=== PATIENT | female | born 1945 | race Caucasian/White ===

== ENCOUNTER 2016-03-31 08:37 | Inpatient (IN) | payer OTHER ==
--- NOTE | 2016-03-31 08:46 | PROVIDER DOCUMENTATION ---
HPI-Respiratory General - General Source: patient - History of Present Illness-Resp Quality of Pain: reports: none Onset/Duration: reports: 1 hour ago Timing: reports: still present <Wenceslao Hodge - Last Filed: 03/31/16 12:11> - General Source: patient - History of Present Illness-Resp Quality of Pain: reports: tightness Severity in ED: reports: severe Onset/Duration: reports: this morning Timing: reports: still present Cough Quality/Degree: reports: no cough Associated Symptoms: reports: hurts to breathe, short of breath. denies: fever/ chills, sore throat Similar Symptoms Previously?: Yes Recently seen or treated by another doctor?: No <Michael Mendoza - Last Filed: 03/31/16 12:15> - General Chief Complaint: Shortness of Breath Stated Complaint: SOB Time Seen by Provider: 03/31/16 08:50 Allergies/Adverse Reactions: Patient Allergies Allergy/AdvReac Type Severity Reaction Status Date / Time Sulfa (Sulfonamide Allergy Intermediate RASH Verified 03/31/16 08:44 Antibiotics) [Sulfa(Sulfonamide Antibiotics)] spironolactone Allergy hyperkalemi Verified 03/31/16 08:44 a Home Medications: Home Medication List Medication Instructions Recorded Confirmed Last Taken Type Topiramate [Topamax] 25 mg PO QHS 01/31/12 01/06/16 12/17/15 21:00 History Albuterol 2.5MG/Ipratrop 0.5MG 3 ml INH Q4-6H PRN PRN #30 neb 04/16/15 01/06/16 12/17/15 Rx [Duoneb (A & A)] Amlodipine [Norvasc] 5 mg PO DAILY #30 tablet 08/06/15 01/06/16 12/17/15 08:00 Rx Insulin Detemir [Levemir] 40 unit SUBQ BID #1 insuln.pen 08/06/15 01/06/1612/16 18:00 Rx Levothyroxine [Synthroid] 75 microgm PO DAILY #30 tablet 09/19/15 01/06/1612/16 06:00 Rx Budesonide/Formoterol Fumarate 1 puff INH DIRECTED 12/04/15 01/06/16 History [Symbicort 160-4.5 Mcg Inhaler] Guaifenesin [Mucinex] 600 mg PO BID 12/04/15 01/06/16 12/17/15 20:00 History Insulin Aspart [Novolog] 100 unit SQ Q6HR 12/04/15 01/06/16 12/17/15 History Folic Acid 1 mg PO DAILY 12/18/15 01/06/16 12/17/15 08:00 History Hydrocodone/Acetaminophen [Stephenson 1 - 2 each PO Q4H 12/18/15 01/06/16 12/17/15 History 5-325 Tablet] Gabapentin [Neurontin] 800 mg PO QHS 01/07/16 01/07/16 Unknown History Omeprazole [Prilosec] 40 mg PO DAILY 01/07/16 01/07/16 Unknown History Metformin E.r. [Glucophage Xr] 1,000 mg PO BID 01/09/16 01/09/16 Unknown History Sitagliptin Phosphate [Januvia] 100 mg PO DAILY 01/09/16 01/09/16 Unknown History Atorvastatin Calcium [Lipitor] 40 mg PO DAILY 01/17/16 01/17/16 Unknown History Duloxetine [Cymbalta] 20 mg PO QAM #30 capsule 01/28/16 Unknown Rx Furosemide [Lasix] 40 mg PO BID #0 tablet 01/28/16 Unknown Rx Metoprolol Succinate E.r. [Toprol 25 mg PO DAILY #0 tablet 01/28/16 Unknown Rx Xl] Polyethylene Glycol 3350 [Miralax] 17 gm PO BID #0 powder, packet 01/28/16 Unknown Rx Pramipexole [Mirapex] 0.75 mg PO QHS #30 tablet 01/28/16 Unknown Rx - History of Present Illness-Resp Nature of Presenting Problem: Pt with SOB of sudden onset this morning with a hx of copd/ chf. She took her morning lasix (Wenceslao Hodge) Pt was brought in by EMS with 70 y/o F complaining of SOB (Michael Mendoza) Review of Systems - Adult - REVIEW OF SYSTEMS - ADULT Constitutional: denies: chills, fever Eyes: denies: discharge, decreased vision Ears, Nose, Mouth & Throat: denies: ear pain, sinus problem, mouth/dental pain, throat pain Cardiovascular: denies: chest pain, edema, irregular heart rate Respiratory: reports: dyspnea on exertion, shortness of breath Gastrointestinal: denies: constipation, diarrhea, nausea, vomiting Genitourinary: denies: discharge, frequent UTI's, hematuria Musculoskeletal: denies: bone pain, joint swelling, muscle weakness Integumentary: denies: hair loss, mole changes, skin thickening Neurological: denies: dizziness/vertigo, loss of balance, paresthesia Psychiatric: denies: anti-depressant use, emotional problems Endocrine: denies: change in skin pigment, cold intolerance, heat intolerance Allergic/Immunologic: denies: allergic rhinitis, food allergy, hay fever <Wenceslao Hodge - Last Filed: 03/31/16 12:11> - REVIEW OF SYSTEMS - ADULT Constitutional: denies: chills, fever Eyes: reports: no symptoms reported Ears, Nose, Mouth & Throat: reports: no symptoms reported Cardiovascular: reports: chest pain. denies: edema Respiratory: reports: shortness of breath. denies: cough, wheezing Gastrointestinal: reports: no symptoms reported Genitourinary: reports: no symptoms reported Musculoskeletal: reports: no symptoms reported Integumentary: reports: no symptoms reported Neurological: reports: no symptoms reported Psychiatric: reports: no symptoms reported Endocrine: reports: no symptoms reported Hematologic/Lymphatic: reports: no symptoms reported Allergic/Immunologic: reports: no symptoms reported All Other Systems: Reviewed and Negative <Michael Mendoza - Last Filed: 03/31/16 12:15> Past History - Adult - PAST MEDICAL HISTORY-ADULT Major Childhood Illnesses: reports: denies history Cardiovascular: reports: A-Fib, CAD, HTN, heart valve problem (MVP), hyperlipidemia Respiratory: reports: COPD Gastrointestinal: reports: GERD Musculoskeletal: reports: arthritis, chronic pain, fibromyalgia Neurological: reports: other (neuropathy) Psychiatric: reports: anxiety, depression Endocrine/Immune: reports: Diabetes - PRIOR SURGERIES/PROCEDURES Surgical/Procedure History: reports: breast, other (arthroscopy ) - PRIOR HOSPITALIZATIONS Prior Hospitalizations: reports: for similar symptoms - IMMUNIZATION STATUS Childhood Immunizations: See Nurse Assessment Flu Vaccine: See Nurse Assessment - FAMILY HISTORY Family History: reviewed, not pertinent <Wenceslao Hodge - Last Filed: 03/31/16 12:11> - PAST MEDICAL HISTORY-ADULT Review of Records: reports: Old Records Reviewed, Nursing Assessment Review, Medications Reviewed <Michael Mendoza - Last Filed: 03/31/16 12:15> Physical Exam-General - PHYSICAL EXAM-ADULT Initial Vital Signs Reviewed: Yes - CONSTITUTIONAL General Appearance: appears well, alert, no apparent distress - EYES Eyes: PERRL/EOMI, pink conjunctivae - HEAD, EARS, NOSE, MOUTH & THROAT HENMT: moist mucous membranes, normal ENT inspection, TMs normal, pharynx normal - NECK Neck: non-tender, full range of motion, supple - RESPIRATORY Respiratory: chest non-tender, decreased breath sounds, increased rate. negative: normal breath sounds (shallow respirations) - CARDIOVASCULAR Cardiovascular: normal peripheral pulses, regular rate, rhythm - GASTROINTESTINAL (ABDOMEN) Abdominal Exam: normal bowel sounds, non tender, soft - MUSCULOSKELETAL Back Exam: normal inspection, no CVA tenderness, no vertebral tenderness Extremity: normal range of motion, non-tender, pedal edema (4=). negative: deformity - SKIN Integumentary: normal color, normal turgor, warm/dry - NEUROLOGIC Neurologic: grossly normal, no motor/sensory deficits - PSYCHIATRIC Psych/Mental Status: normal mood/affect, normal thought content, normal thought process, oriented x 3 <Michael Mendoza - Last Filed: 03/31/16 12:15> Progress - EKG 1 Time of EKG reading by physician:: 08:35 EKG Read and Signed by:: Wenceslao Hodge Rate: 96 O'Brien: normal WI Interval: normal ST Wave: non-specific ST changes Prior EKG Comparison: no prior EKG Comments: nssttwave changes <Wenceslao Hodge - Last Filed: 03/31/16 12:11> - EKG 1 Time of EKG reading by physician:: 08:35 EKG Read and Signed by:: Wenceslao Hodge EKG Interpretation (*Must complete 3 of following elements*): Abnormal Rate: 96 Rhythm: NSR ST Wave: non-specific ST changes Comments: T wave abnormality - XRAY 1 XRAY Study: Chest Impression: Abnormal XRAY Interpretation: Vascular cogestion - CONSULTS/PCP/HOSPITALIST Notification #1 *Consult/PCP/Hospitalist*: Dr Martins Time Discussed: 10:56 Reason/Comments: Admission Consult Disposition: Admit (accepts) <Michael Mendoza - Last Filed: 03/31/16 12:15> - PLAN OF CARE/RESULTS Progress/Plan/Lab Results: Orders Category Date Time Status Cardiac Monitoring DIRECTED Care 03/31/16 08:44 Active Rausch Cath Insertion ORDERED Care 03/31/16 08:47 Active Oxygen Therapy- ED Nursing DIRECTED Care 03/31/16 08:44 Active Saline Loc NOW Care 03/31/16 08:44 Active CHEST-PORTABLE [RAD] Stat Exams 03/31/16 08:45 Draft ABG [RESP] Routine Lab 03/31/16 09:20 Completed CBC WITH ELECTRONIC DIFF [HEME] Stat Lab 03/31/16 08:45 Completed CK PROFILE [SP CHEM] Stat Lab 03/31/16 08:45 Completed COMPREHENSIVE METABOLIC PANEL [CHEM] Stat Lab 03/31/16 08:45 Com[address] D-DIMER [address] [COAG] Stat Lab 03/31/16 08:45 Completed MAGNESIUM [CHEM] Stat Lab 03/31/16 08:45 Completed PRO B-NATRIURETIC PEPTIDE Stat Lab 03/31/16 08:45 Com[address]IME WITH INR PL [COAG] Stat Lab 03/31/16 08:[address] [COAG] Stat Lab 03/31/16 08:45 Completed TROPONIN T Stat Lab 03/31/16 08:45 Completed Furosemide [Lasix] Med 03/31/16 08:47 Discontinued 60 mg IV NOW ONE Metolazone [Zaroxolyn] Med 03/31/16 09:37 Discontinued 10 mg PO NOW ONE EKG [EKG] Stat Ther 03/31/16 08:44 Draft Vital Signs Temp Pulse Resp BP Pulse Ox 03/31/16 09:22 95 H 29 H 171/54 95 03/31/16 08:39 99.5 F 96 H 31 H 146/108 98 Sulfa (Sulfonamide Antibiotics) [Sulfa(Sulfonamide Antibiotics)] Allergy ( Intermediate, Verified 03/31/16 08:44) RASH spironolactone Allergy (Verified 03/31/16 08:44) hyperkalemia Topiramate [Topamax] 25 mg PO QHS 01/31/12 Albuterol 2.5MG/Ipratrop 0.5MG [Duoneb (A & A)] 3 ml INH Q4-6H PRN PRN #30 neb 04/16/15 Amlodipine [Norvasc] 5 mg PO DAILY #30 tablet 08/06/15 Insulin Detemir [Levemir] 40 unit SUBQ BID #1 insuln.pen 08/06/15 Levothyroxine [Synthroid] 75 microgm PO DAILY #30 tablet 09/19/15 Budesonide/Formoterol Fumarate [Symbicort 160-4.5 Mcg Inhaler] 1 puff INH DIRECTED 12/04/15 Guaifenesin [Mucinex] 600 mg PO BID 12/04/15 Insulin Aspart [Novolog] 100 unit SQ Q6HR 12/04/15 Folic Acid 1 mg PO DAILY 12/18/15 Hydrocodone/Acetaminophen [Stephenson 5-325 Tablet] 1 - 2 each PO Q4H 12/18/15 Gabapentin [Neurontin] 800 mg PO QHS 01/07/16 Omeprazole [Prilosec] 40 mg PO DAILY 01/07/16 Metformin E.r. [Glucophage Xr] 1,000 mg PO BID 01/09/16 Sitagliptin Phosphate [Januvia] 100 mg PO DAILY 01/09/16 Atorvastatin Calcium [Lipitor] 40 mg PO DAILY 01/17/16 Duloxetine [Cymbalta] 20 mg PO QAM #30 capsule 01/28/16 Furosemide [Lasix] 40 mg PO BID #0 tablet 01/28/16 Metoprolol Succinate E.r. [Toprol Xl] 25 mg PO DAILY #0 tablet 01/28/16 Polyethylene Glycol 3350 [Miralax] 17 gm PO BID #0 powder, packet 01/28/16 Pramipexole [Mirapex] 0.75 mg PO QHS #30 tablet 01/28/16 I&O 03/30/16 03/31/16 04/01/16 06:59 06:59 06:59 Output Total 200 Balance -200 Laboratory 03/31/16 03/31/16 03/31/16 09:20 08:45 08:45 WBC 14.18 H RBC 3.39 L Hgb 10.6 L Hct 36.0 L MCV 106.2 H MCH 31.3 H MCHC 29.4 L RDW Std Deviation 19.3 H Plt Count 132 MPV 9.7 Immature Gran % (Auto) 0.8 H Neut % (Auto) 66.4 Lymph % (Auto) 18.7 L [place] % (Auto) 12.6 H Eos % (Auto) 1.3 Baso % (Auto) 0.2 Immature Gran # (Auto) 0.11 H Neut # (Auto) 9.42 H Lymph # (Auto) 2.65 [place] # (Auto) 1.79 H Eos # (Auto) 0.18 Baso # (Auto) 0.03 PT 14.4 INR 1.09 APTT (Factor Assay) 20.1 L D-Dimer 1.29 H Specimen Type ARTERIAL Sample Site R RADIAL pH 7.33 L pCO2 81 H* pO2 84 HCO3 35.8 H Base Excess 14.0 H Oxyhemoglobin 93.6 L ABG O2 Sat (Calculated) 13.7 L ABG O2 Saturation 96.9 ABG Carboxyhemoglobin 2.70 H ABG Methemoglobin 0.7 Rodney Test YES A-a O2 Difference 171.0 Total Hemoglobin 10.3 L Lactate 0.90 Blood Gas Modality VENTIMASK FiO2 % 50.0 Sodium Potassium Chloride Carbon Dioxide Anion Gap BUN Creatinine Estimated GFR/1.73 m2 BUN/Creatinine Ratio Glucose Calculated Osmolality Calcium Magnesium Total Bilirubin AST ALT Alkaline Phosphatase Creatine Kinase Troponin T Rop-A-Mitmzmfqqwh Pept Total Protein Albumin Globulin Albumin/Globulin Ratio 03/31/16 03/31/16 03/31/16 08:45 08:45 08:45 WBC RBC Hgb Hct MCV MCH MCHC RDW Std Deviation Plt Count MPV Immature Gran % (Auto) Neut % (Auto) Lymph % (Auto) [place] % (Auto) Eos % (Auto) Baso % (Auto) Immature Gran # (Auto) Neut # (Auto) Lymph # (Auto) [place] # (Auto) Eos # (Auto) Baso # (Auto) PT INR APTT (Factor Assay) D-Dimer Specimen Type Sample Site pH pCO2 pO2 HCO3 Base Excess Oxyhemoglobin ABG O2 Sat (Calculated) ABG O2 Saturation ABG Carboxyhemoglobin ABG Methemoglobin Rodney Test A-a O2 Difference Total Hemoglobin Lactate Blood Gas Modality FiO2 % Sodium 138 Potassium 4.6 Chloride 95 L Carbon Dioxide 33 Anion Gap 10 BUN 50 H Creatinine 1.4 H Estimated GFR/1.73 m2 37 BUN/Creatinine Ratio 36 Glucose 301 H Calculated Osmolality 300 Calcium 9.2 Magnesium 2.6 Total Bilirubin 0.50 AST 13 ALT 9 L Alkaline Phosphatase 92 Creatine Kinase 21 L Troponin T < 0.010 Est-O-Dvediawrspd Pept 3646 H Total Protein 6.6 Albumin 3.7 Globulin 3.0 Albumin/Globulin Ratio 1.0 (Michael Mendoza) Departure - Departure Time of Disposition Order: 12:11 Certified Medical Emergency: Emergent <Wenceslao Hodge - Last Filed: 03/31/16 12:11> - Departure Time of Disposition Order: 09:35 Certified Medical Emergency: Emergent <Michael Mendoza - Last Filed: 03/31/16 12:15> - Departure DIAGNOSIS: CHF (congestive heart failure) Qualifiers: Congestive heart failure type: combined Congestive heart failure chronicity: chronic Qualified Code(s): I50.42 - Chronic combined systolic (congestive) and diastolic (congestive) heart failure Disposition: ADMITTED INPATIENT 09 Condition: Stable Additional Instructions: ED Follow Up Instructions: You have been treated by a care provider in the Emergency Department. These instructions are being provided to you so you can have an understanding of how to care for yourself upon discharge. Upon discharge from the Emergency Department, you are responsible for making arrangements for follow-up care by a physician of your choice. Take all prescribed medications as directed. Return to the Emergency Department immediately for any new or worsening symptoms. You may call the Physician Referral phone number at [phone] to obtain a list of Physicians who are taking new patients. Referrals: Idris Hanna MD [Primary Care Provider] - Attestation - Scribe Verification/Attestation Scribe:: Michael Mendoza Acting as Scribe for:: Wenceslao Hodge Scribe documention review:: This chart was documented by a scribe and accurately reflects the service the provider performed and the decisions made by the provider. <Michael Mendoza - Last Filed: 03/31/16 12:15> Physician Attestation
[2016-03-31] MEDS ORDERED: LASIX IV ONE (08:47)
[2016-03-31 09:10] LABS: BASO% 0.2 % (0.0-0.8); EOS# 0.18 X1000 (0.0-0.7); EOS% 1.3 % (0.0-10.0); HEMOGLOBIN 10.6 g/dL (12.0-16.0); IMM GRAN# 0.11 X1000 (0.0-0.04); IMM GRAN% 0.8 % (0.0-0.5); LYMPH# 2.65 X1000 (1.2-3.4); LYMPH% 18.7 % (20.5-51.1); MANUAL DIFF NEEDED? NO; MCH 31.3 PG (27-31); MCHC 29.4 g/dL (33-37); MCV 106.2 FL (81-99); MONO# 1.79 X1000 (0.11-0.59); MONO% 12.6 % (1.7-9.3); MPV 9.7 FL (7.4-10.4); NEUT% 66.4 % (42.2-75.2); PLT 132 X1000 (130-400); RBC 3.39 XMIL (4.2-5.4)
[2016-03-31 09:18] LABS: INR 1.09 (0.86-1.15); PROTIME 14.4 Seconds (12.1-15.5)
[2016-03-31 09:19] LABS: PTT PL 20.1 Seconds (22.6-43.9)
[2016-03-31 09:20] LABS: ALBUMIN 3.7 g/dL (3.5-5.0); CALCIUM 9.2 mg/dL (8.8-10.2); MAGNESIUM 2.6 mg/dL (1.5-2.7); POTASSIUM 4.6 mmol/L (3.5-5.1); TOTAL BILIRUBIN 0.5 mg/dL (0.20-1.00); TOTAL PROTEIN 6.6 g/dL (6.3-8.3)
[2016-03-31] MEDS ORDERED: ZAROXOLYN PO ONE (09:37)
[2016-03-31 09:39] LABS: BLOOD TYPE ARTERIAL; DRAW SITE R RADIAL; METHB 0.7 % (0.0-1.5); O2(CT) 13.7 mL/dL (15.0-23.0); PO2(98.6) 84 mmHg (60-100); SAMPLE BLOOD; SAO2 96.9 % (95.0-100.0); THB 10.3 g/dL (11.5-17.4); pH(98.6) 7.33 (7.35-7.45)
--- NOTE | 2016-03-31 10:02 | Diag Imaging Result Document ---
PROCEDURE NAME: CHEST-PORTABLE - 03/31/2016 CHEST SINGLE VIEW: INDICATION: Chest pain. COMPARISON: 01/19/2016. FINDINGS: There is cardiomegaly with pulmonary vasculature congestion and interstitial edema increased from the prior study. There are probable small bilateral pleural effusions. IMPRESSION: Pulmonary edema increased from prior study.
[2016-03-31 10:12] LABS: MODALITY VENTIMASK; PCO2(98.6) 81 mmHg (35-45)
[2016-03-31 10:13] LABS: ALLEN TEST YES
--- NOTE | 2016-03-31 10:28 | EKG Report ---
Test Performed on : 03/31/2016 08:35:46 AM Test Reason : CHEST PAIN Blood Pressure : / mmHG Vent. Rate : 096 BPM Atrial Rate : 096 BPM P-R Int : 138 ms QRS Dur : 078 ms QT Int : 334 ms P-R-T Axes : 046 001 041 degrees QTc Int : 421 ms Normal sinus rhythm. Nonspecific ST and T wave abnormality Abnormal ECG When compared with ECG of 12-JAN-2016 16:40, No significant change was found Unconfirmed Result
[2016-03-31 14:55] LABS: BE 19.6 mmoll (-3.0-3.0); BLOOD TYPE ARTERIAL; DRAW SITE R RADIAL; METHB 1.4 % (0.0-1.5); O2(CT) 12.6 mL/dL (15.0-23.0); PO2(98.6) 99 mmHg (60-100); SAMPLE BLOOD; SAO2 97.9 % (95.0-100.0); THB 9.4 g/dL (11.5-17.4); pH(98.6) 7.37 (7.35-7.45)
[2016-03-31 15:06] LABS: ALLEN TEST YES; MODALITY VENTIMASK; PCO2(98.6) 83 mmHg (35-45)
[2016-03-31] MEDS ORDERED: DUONEB (A & A) INH PRN (15:34)
[2016-03-31] MEDS: HUMALOG SUBQ SCH ×2 (16:05→20:10)
[2016-03-31] MEDS: DUONEB (A & A) INH SCH ×3 (16:24→23:00)
--- NOTE | 2016-03-31 16:33 | CONSULTATION ---
DATE OF CONSULTATION: 03/31/2016 INDICATION: Congestive heart failure. HISTORY OF PRESENT ILLNESS: Ms. Law is a 70-year-old white female who is morbidly obese. She has a history of diastolic heart failure with multiple hospitalizations. Notably, she has had a hospitalization in December and January at [facility]. Later hospitalization at [facility] in January and a subsequent hospitalization in February at [facility]. These all seemed to be secondary to diastolic heart failure. She comes in today with a myriad of complaints over the last several days. She has had generalized malaise, weakness, lightheadedness, shortness of breath, chest discomfort and subjective fevers. In addition she has had episodic nausea and diarrhea. She cannot think of anything that specifically exacerbated these symptoms. She reports compliance with her medications although she is not fluent on what her medications are. In addition she reports compliance with her CPAP as well as her home oxygen therapy. She was in a rehab facility up until March 24 and specifically reports that was really the last day that she felt well. She is essentially non mobile at home using a walker for only limited ambulation around the house and is not able to independently perform her activities of daily living. She currently lives with her sister. Essentially most of her day is spent either in bed or sitting in a chair. There has been no orthopnea and no PND and again she does report compliance with her CPAP and home oxygen therapy. PAST MEDICAL HISTORY: 1. Significant for diastolic heart failure. 2. Diabetes mellitus. 3. Morbid obesity. 4. Hyperlipidemia. 5. Hypothyroidism. 6. Obstructive sleep apnea. SOCIAL HISTORY: No current alcohol, tobacco or illicit drugs. She currently lives with her sister. FAMILY HISTORY: Significant for diabetes and hypertension. REVIEW OF SYSTEMS: A 10 system review of systems is negative except for those mentioned in HPI. PHYSICAL EXAMINATION: She is afebrile. Her initial blood pressure on presenting to the ER at [place] was 146/108. Heart rate most recently of 60. She weighs 267 pounds. She is 5 feet 3 inches.General: No acute distress. Morbidly obese, white female. HEENT: Oropharynx is moist. Poor dentition. Eye examination shows pink conjunctivae, white sclerae. Neck: Examination shows no obvious thyromegaly or thyroid tenderness. Cardiovascular: She is in a regular rate and rhythm. She has no obvious murmurs. She has very distant heart sounds. She has 2+ bilateral lower extremity edema that appears chronic. She has warm and well perfused lower extremities. Chest: Notable for somewhat diminished breath sounds but they are very distant. There is no increased work of breathing. She is speaking in full sentences. She currently has a face mask in place. Abdomen: Soft, nontender. No obvious organomegaly but significantly limited examination. Musculoskeletal Examination: Normal and symmetric muscle tone. No long bone tenderness to palpation. Neurological: Moving all extremities well. Cranial nerves 2-12 are intact without any sensation deficits. Psychiatric: Alert and oriented, pleasant. She has normal mood and affect. PERTINENT DATA: Her EKG at 8:35 this morning shows sinus rhythm. She had a rate of 96 beats per minute. She had a chest x-ray suggesting an increase in pulmonary edema from previous studies. Her white count is 14.1, her hematocrit is 36. Her platelet count is 132,000. Her D-dimer is 1.29. Her INR is 1.09. Her ABG shows a pH of 7.37, pCO2 of 83, PO2 is 99. That was on an FiO2 of 40%. Her sodium is 138, potassium 4.6, BUN 50, creatinine 1.4. Her proBNP is 3646. ASSESSMENT: Diastolic heart failure. PLAN: Pulmonary is being involved. We have checked an echocardiogram. She is on Lasix 60 mg IV b.i.d. which we will continue. 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 We will recheck the echo to reconsider evaluation of the aortic valve. Further recommendations to follow.
[2016-03-31] MEDS ORDERED: ZOFRAN IV PRN (16:40)
--- NOTE | 2016-03-31 18:47 | HISTORY AND PHYSICAL ---
PRIMARY CARE PHYSICIAN: Dr. Idris Hanna. ARTISTIC ASSOCIATE: Dr. Marinelli. CHIEF COMPLAINT: Shortness of breath, chest pain. HISTORY OF PRESENT ILLNESS: This is a morbidly obese, 70-year-old female who is well known to our service. She has a history of hypercapnic respiratory failure, chronic COPD with home O2 at 4 L, narcolepsy, obstructive sleep apnea, mitral valve prolapse, diabetes type 2 now insulin-dependent, as well as a history of Crohn's disease with chronic diarrhea. At the time of interview the patient is on oxygen 40% via Ventimask. She will answer yes and no only to questions; therefore, history is taken from the chart and the family members that are sitting at the bedside. Evidently, the patient had been in her normal state of health when she complained of a sudden onset of chest pain with increasing shortness of breath at rest about an hour prior to coming to the emergency room. The family member stated that the shortness of breath progressed; therefore, she called 911. On arrival, she did describe the pain as a tightness that increased with cough and deep breathing. It did decrease when she was sitting still between coughs. She denied any syncope, dizziness, nausea, or vomiting with this pain. She did have a nonproductive cough. She was afebrile with diminished breath sounds throughout. She was placed on it looks like a 50% face mask, given 60 of Lasix IV as well as 2 mg of Zaroxolyn p.o., and Rausch was placed due to an elevated proBNP of 3,646. Blood gases revealed a pCO2 of 83, a PO2 of 99, with a pH of 7.37. The family member did state that the patient took her morning medications which included Lasix, although she was unaware of any urine output. At the time of the patient 's assessment by myself, she had diuresed over 1500 mL. Respirations were 26-30 while asleep on 40% Ventimask. She was maintaining a saturation of 92 to 93%. PAST MEDICAL HISTORY: 1.Chronic hypercapnic respiratory failure 2.COPD with home O2 at 4 L 3.Obstructive sleep apnea 4.Narcolepsy 5.Diabetes mellitus type 2, now insulin-dependent 6.Chronic pain syndrome 7.Aortic valve vegetation 8.Morbid obesity 9.Chronic diastolic heart failure 10.Hypertension 11.Mitral valve prolapse 12.Crohn's disease PAST SURGICAL HISTORY: Breast reduction, debridement of soft tissue secondary to MRSA of the right thigh in November of 2014, and arthroscopic knee surgery. ALLERGIES: Sulfa drugs which cause a rash. HOME MEDICATIONS: A list will be obtained. REVIEW OF SYSTEMS: Is unable to obtain due to the patient's lethargy. Pertinent positives stated in the HPI are from the chart and the patient's family members. PHYSICAL EXAMINATION: GENERAL: This is a 70-year-old morbidly obese female, who is lying in the bed, lethargic at present. CARDIOVASCULAR: Regular rate and rhythm. S1 and S2 are appreciated. PULMONARY: Breath sounds are diminished throughout and the patient is in mild distress. Chest does rise and fall symmetrically with respiration. GASTROINTESTINAL: Abdomen is soft, nondistended. Bowel sounds in all 4 quadrants. MUSCULOSKELETAL: Good range of motion to joints. EXTREMITIES: No clubbing or cyanosis. She does have some 3 to 4+ pedal edema bilateral. Pulses palpable x4. SKIN: Warm and dry with no rashes or lesions noted. NEUROLOGIC: She is lethargic. She will wake to her name being called. She will answer sentences yes or no in 1 word and then dozes back off to sleep. DIAGNOSTICS: Chest x-ray reveals pulmonary edema with probable small bilateral pleural effusions. LABS: WBC is 14.1, with a hemoglobin 10.6, hematocrit 36, platelets of 132, 000. D-dimer is 1.29 with an INR of 1.09. Sodium is 138, potassium 4.6, BUN 50, creatinine 1.4, with a glucose of 301. ProBNP is 3,646. Troponin of 0.010. ASSESSMENT: 1. Acute on chronic hypercapnic respiratory failure. 2. Chronic obstructive pulmonary disease with home O2 at 4 L nasal cannula. 3. Acute exacerbation of diastolic heart failure with last EF 12/2015 of 61%. 4. Diabetes mellitus type 2, now insulin dependent. 5. Hypothyroidism 6. Obstructive sleep apnea. 7. Crohn's disease with chronic diarrhea. 8. Abnormal aortic valve with oscillating mass and possible moderate to perhaps severe degree of aortic regurgitation per echocardiogram 12/2015. 9. Acute kidney injury PLAN: She will be admitted to the hospital. She will be transferred to [facility] and placed in CICU for close monitoring with telemetry. Blood gases will be repeated. The patient will be placed on BiPAP. We will consult cardiology as well as Dr. Marinelli, her marriage counselor minister. We will identify her home medications and continue as appropriate. She was given 60 of Lasix IV in the emergency room. We will start 60 mg IV b.i.d. at 9 o'clock tonight. We will give DuoNeb q.4 hours and q.2 hours p.r.n. Pattern blood glucose with sliding scale insulin. We will trend daily blood gases as well as repeat CBC, CMP, magnesium, and proBNP in the morning. We will hold renal toxic medications at present. Further treatments pending hospital course. Dictated by LYNN Hummel for Courtney Leyva MD The patient was seen and examined by me. I agree with the assessment and plan as dictated. ALETA
[2016-03-31] MEDS: TYLENOL PO PRN (19:06)
[2016-03-31] MEDS: LASIX IV SCH (20:10)
[2016-03-31 21:48] LABS: ALLEN TEST YES; BE 20.6 mmoll (-3.0-3.0); BLOOD TYPE ARTERIAL; DRAW SITE R RADIAL; METHB 1.4 % (0.0-1.5); PO2(98.6) 114 mmHg (60-100); SAMPLE BLOOD; SAO2 98.4 % (95.0-100.0); THB 8.8 g/dL (11.5-17.4); pH(98.6) 7.44 (7.35-7.45)
[2016-03-31 21:49] LABS: MODALITY BI PAP
[2016-03-31 21:50] LABS: PCO2(98.6) 70 mmHg (35-45)
[2016-03-31] MEDS: LIPITOR PO SCH (23:30)
[2016-03-31] MEDS: MIRAPEX PO SCH (23:30)
[2016-03-31] MEDS: TOPAMAX PO SCH (23:30)
[2016-03-31] MEDS: MIRALAX PO SCH (23:30)
[2016-03-31] MEDS: NORCO-5 PO PRN (23:31)
[2016-04-01] MEDS ORDERED: AYR NASAL SPRAY NAS PRN (01:26)
[2016-04-01] MEDS: NORCO-5 PO PRN ×4 (03:24→20:52)
[2016-04-01] MEDS: DUONEB (A & A) INH SCH ×6 (03:43→23:44)
[2016-04-01] MEDS: ZOFRAN IV PRN ×2 (04:21→12:57)
[2016-04-01 04:53] LABS: ALLEN TEST YES; BE 16.9 mmoll (-3.0-3.0); BLOOD TYPE ARTERIAL; DRAW SITE R RADIAL; METHB 1.5 % (0.0-1.5); O2(CT) 17.4 mL/dL (15.0-23.0); PO2(98.6) 69 mmHg (60-100); SAMPLE BLOOD; SAO2 94.2 % (95.0-100.0); THB 13.8 g/dL (11.5-17.4)
[2016-04-01 04:57] LABS: MODALITY BI PAP; PCO2(98.6) 74 mmHg (35-45)
[2016-04-01 05:36] LABS: HEMATOCRIT 31.8 % (37.0-47.0); HEMOGLOBIN 9.2 g/dL (12.0-16.0); MCH 31.4 PG (27-31); MCHC 28.9 g/dL (33-37); MCV 108.5 FL (81-99); MPV 9.9 FL (7.4-10.4); RBC 2.93 XMIL (4.2-5.4)
[2016-04-01] MEDS: PROTONIX IV SCH (06:45)
[2016-04-01 07:03] LABS: ALBUMIN 3.4 g/dL (3.5-5.0); CALCIUM 9.1 mg/dL (8.8-10.2); POTASSIUM 3.8 mmol/L (3.5-5.1); TOTAL BILIRUBIN 0.64 mg/dL (0.20-1.00); TOTAL PROTEIN 6.4 g/dL (6.3-8.3)
--- NOTE | 2016-04-01 07:26 | Diag Imaging Result Document ---
PROCEDURE NAME: CHEST-PORTABLE - 04/01/2016 SINGLE FRONTAL RADIOGRAPH OF THE CHEST: COMPARISON: 03/31/2016. FINDINGS: Inspiration is suboptimal. Pulmonary venous congestion and at least mild interstitial edema is stable. No new consolidation is identified. Cardiac silhouette is stable. IMPRESSION: Stable chest.
[2016-04-01] MEDS: HUMALOG SUBQ SCH ×4 (07:48→20:46)
[2016-04-01] MEDS: LASIX IV SCH ×2 (08:14→20:47)
[2016-04-01] MEDS: CYMBALTA PO SCH (08:14)
[2016-04-01] MEDS: FOLIC ACID PO SCH (08:14)
[2016-04-01] MEDS: SYNTHROID PO SCH (08:15)
[2016-04-01] MEDS: MIRALAX PO SCH ×2 (08:15→20:47)
[2016-04-01] MEDS ORDERED: LOVENOX SUBQ SCH (09:00)
[2016-04-01] MEDS: ZOSYN 3.375 GM/NS 50 ML IV SCH ×2 (11:37→16:19)
[2016-04-01] MEDS: CALMOSEPTINE OINTMENT TOP PRN (12:56)
--- NOTE | 2016-04-01 13:38 | CONSULTATION ---
DATE OF CONSULTATION: 04/01/2016 REFERRING PHYSICIAN: Dr. Leyva. CHIEF COMPLAINT: Shortness of breath and chest pain. HISTORY OF PRESENT ILLNESS: This is a morbidly obese, 70-year-old female with a past medical history of hypercapnic respiratory failure, COPD, ESTELLA, mitral valve prolapse, diabetes, Crohn disease, that presented to the hospital with complaints of shortness of breath and chest pain. The patient had a sudden increase in shortness of breath and chest pain about an hour prior to coming to the hospital. She described the pain as tightness and pain with cough and deep breathing. Her cough was noted to be nonproductive. Her CO2 was elevated at 83 upon arrival and she was placed on BiPAP and admitted to the floor. She denies any syncope, dizziness, nausea, or vomiting. She does have chronic diarrhea secondary to the Crohn disease. REVIEW OF SYSTEMS: A 10-point review of systems was conducted. Pertinent as noted in the HPI, otherwise noncontributory. PAST MEDICAL HISTORY: As mentioned in HPI, otherwise noncontributory. PAST SURGICAL HISTORY: Breast reduction, debridement of soft tissue secondary to MRSA of the right thigh, and arthroscopic knee surgery. ALLERGIES: Sulfa. ACTIVE MEDICATIONS: Tylenol, Darrow, DuoNeb, Lipitor, Cymbalta, Lovenox, folic acid, Lasix, Humalog, Synthroid, Zofran, Protonix, MiraLAX, Mirapex, and Topamax. PHYSICAL EXAMINATION: Vital Signs: Temperature 96.9, heart rate 85, respiratory rate 22, blood pressure 133/42, oxygen saturation 100%. General: This is a morbidly obese female, lying in bed, on BiPAP. No acute distress noted. Cardiovascular: Regular rate and rhythm. S1, S2 present. Chest: Reduced entry. GI: Soft, nondistended. Bowel sounds present. Extremities: Three to 4+ pedal edema bilaterally. Distal pulses are palpable. Neurologic: She does seem to be lethargic but does arouse to verbal stimuli. LABS/INVESTIGATIONS: WBC 6.92, RBC is 2.93, hemoglobin 9.2, hematocrit 31.8, platelet count 99,000. Sodium 141, potassium 3.8, chloride 90, anion gap 11, BUN 45, creatinine 1.1, glucose 165. ProBNP 4,769. Blood gas reveals a pH of 7.4, pCO2 of 74, PO2 of 69, HC03 of 37.9. Chest x- ray shows stable chest. ASSESSMENT AND PLAN: This is a 70-year-old, morbidly obese female with a past medical history mentioned in the HPI, that presented to the hospital with complaints of shortness of breath and chest pain. She does have acute on chronic hypercapnic respiratory failure secondary to her chronic obstructive pulmonary disease exacerbation and acute exacerbation of her diastolic heart failure. Continue to repeat labs. IV Lasix b.i.d., inhaled bronchodilators, pattern fingersticks with sliding scale insulin, DVT and GI prophylaxis. Further recommendations pending diagnostic studies. Thank for the courtesy of consult. Dictated by LYNN Diaz for Kathrin Marinelli MD
--- NOTE | 2016-04-01 16:00 | PROGRESS NOTE ---
DATE: 04/01/2016 SUBJECTIVE: Ms. Peck thinks that she feels better today. Her breathing is somewhat improved. She is on BiPAP presently, though. PHYSICAL EXAMINATION: Vital signs: She is afebrile. Heart rate of 83, blood pressure 119/48. Her I's and O's are - 3250 mL thus far. General: No acute distress. Cardiovascular: Regular rate and rhythm. She has no obvious murmurs. Chest: Sounds relatively clear, but she has poor inspiratory effort. No increased work of breathing. Abdomen: Soft, nontender, nondistended. No obvious organomegaly. Skin: Warm and dry throughout. PERTINENT DATA: White count 6.9. Hematocrit is 31.8. Platelet count is 99,000. Sodium is 141, potassium 3.8, BUN 45, creatinine 1.1. ASSESSMENT: 1. Diastolic heart failure. 2. Chronic obstructive pulmonary disease exacerbation. PLAN: We will continue with diuretics. They seem to be effective at this point. She is being followed by pulmonology as well.
--- NOTE | 2016-04-01 16:30 | ECHO REPORT ---
ORDER DATE: 03/31/2016 INDICATION FOR THE STUDY: CHF. FINDINGS: 1. This is an extremely difficult study. The patient is morbidly obese and on BiPAP making this a very poor quality study. 2. The right atrium is mildly enlarged at 4.3 cm. 3. There is mild tricuspid regurgitation. RV systolic pressure of 30. 4. Likely enlarged right ventricle. The RV systolic function does appear to be intact though. 5. Mild pulmonic insufficiency. 6. Mild left atrial enlargement at 4.3 cm. 7. No mitral prolapse. Mild mitral regurgitation. 8. LV appears to be somewhat enlarged with an end-diastolic dimension of 5.8. There is mild left ventricular hypertrophy with a posterior and interventricular septal wall thickness 1.2 cm each. Normal LV systolic function. The estimated EF is greater than 55%. Segmental wall motion analysis cannot be performed as the patient has a very poor endocardial border visualization but overall I do not see any significant abnormalities. 9. Aortic valve does appear to open well. It is somewhat calcified. In addition there is a calcified oscillating mass adherent to what appears to be the left coronary cusp. This was noted on the last study she had in December 2015. This may represent a healed vegetation. There is at least mild aortic insufficiency. Due to the technical difficulties of this study it is extremely difficult to characterize. I do not see any significant aortic stenosis. 10. Aorta appears normal in visualized segments. 11. No pericardial effusion seen.
[2016-04-01] MEDS ORDERED: NORCO-5 PO PRN (19:13)
--- NOTE | 2016-04-01 19:35 | PROGRESS NOTE ---
DATE: 04/01/2016 SUBJECTIVE: The patient is currently on BiPAP at night. She states that she feels a little bit better. No acute events noted overnight. She does complain of numbness in her left arm. OBJECTIVE: Vital Signs: Temperature 97 degrees, blood pressure 103/44, heart rate 82, respirations 20, O2 saturation is 98% on BiPAP. General: Is a morbidly obese female, lying in bed, in no acute distress. Head: Normocephalic, atraumatic. Heart: S1, S2. Normal. Regular rate and rhythm. Lungs: Clear to auscultation. No wheezing, no rales, no rhonchi. Abdomen: Positive bowel sounds. Soft, obese, nontender. Extremities: 3+ edema with erythema involving both lower extremities. LABS: White blood cell count 6.9, hemoglobin 9.2, hematocrit 31, platelets 99, 000. Sodium 141, potassium 3.8, chloride 90, CO2 40, BUN 45, creatinine 1.1, glucose 165, calcium 9.1, magnesium 2.2, proBNP 4769. ASSESSMENT AND PLAN: 1. Acute hypercapnic respiratory failure. Continue with BiPAP support as well as bronchodilator therapy. 2. Acute on chronic diastolic congestive heart failure exacerbation. Continue on IV Lasix infusion. Cardiology is following. We will monitor the patient's urine output and daily weights closely. 3. Thrombocytopenia. Will discontinue the Lovenox and monitor the patient's platelet count closely. 4. Morbid obesity. Aware. 5. Obstructive sleep apnea. The patient is on BiPAP. 6. Anxiety disorder. Aware. 7. Hypothyroidism. Continue on Synthroid. 8. Dyslipidemia. Continue on Lipitor. 9. Situational depression. Continue on Cymbalta. 10. Bilateral lower extremity cellulitis. We will start the patient on Zosyn. 11. Restless legs syndrome. Continue on Mirapex. 12. Diabetes Mellitus type 2. Continue on sliding scale insulin. [facility]
[2016-04-01] MEDS: TOPAMAX PO SCH (20:47)
[2016-04-01] MEDS: LIPITOR PO SCH (20:47)
[2016-04-01] MEDS: MIRAPEX PO SCH (20:48)
[2016-04-01] MEDS: NEURONTIN PO SCH (20:52)
[2016-04-01] MEDS ORDERED: CARDIZEM IV ONE (22:47)
[2016-04-01] MEDS ORDERED: CARDIZEM 100 MG/NS 100 ML IV SCH ×2 (23:00)
[2016-04-02] MEDS: LASIX IV SCH ×3 (00:43→20:32)
[2016-04-02] MEDS: NORCO-5 PO PRN ×6 (00:43→23:01)
[2016-04-02] MEDS: ZOSYN 3.375 GM/NS 50 ML IV SCH ×5 (00:44→23:08)
[2016-04-02] MEDS: DUONEB (A & A) INH SCH ×6 (03:16→23:39)
[2016-04-02 05:45] LABS: ALLEN TEST YES; BE 18.8 mmoll (-3.0-3.0); BLOOD TYPE ARTERIAL; DRAW SITE R RADIAL; METHB 1.8 % (0.0-1.5); PO2(98.6) 68 mmHg (60-100); SAMPLE BLOOD; SAO2 97.5 % (95.0-100.0); THB 8.5 g/dL (11.5-17.4); pH(98.6) 7.36 (7.35-7.45)
[2016-04-02 05:45] LABS: ALBUMIN 3.2 g/dL (3.5-5.0); CALCIUM 8.8 mg/dL (8.8-10.2); POTASSIUM 3.4 mmol/L (3.5-5.1)
[2016-04-02 05:46] LABS: MODALITY BI PAP; PCO2(98.6) 83 mmHg (35-45)
[2016-04-02] MEDS: SODIUM CHLORIDE 0.9% INJ SCH (05:52)
[2016-04-02] MEDS: PROTONIX IV SCH ×2 (05:52→06:01)
[2016-04-02] MEDS: HUMALOG SUBQ SCH ×3 (06:00→16:41)
[2016-04-02 06:24] LABS: HEMATOCRIT 29.5 % (37.0-47.0); HEMOGLOBIN 8.8 g/dL (12.0-16.0); MCH 31.9 PG (27-31); MCHC 29.8 g/dL (33-37); MCV 106.9 FL (81-99); MPV 9.1 FL (7.4-10.4); RBC 2.76 XMIL (4.2-5.4)
[2016-04-02] MEDS: POTASSIUM CHLORIDE 20 MEQ/SWI 100 ML IV SCH ×2 (08:21→11:09)
[2016-04-02] MEDS: MIRALAX PO SCH ×2 (08:22→20:34)
[2016-04-02] MEDS: SYNTHROID PO SCH (08:23)
[2016-04-02] MEDS: CYMBALTA PO SCH (08:23)
[2016-04-02] MEDS: DALIRESP PO SCH (08:23)
[2016-04-02] MEDS: FOLIC ACID PO SCH (08:23)
--- NOTE | 2016-04-02 08:59 | Diag Imaging Result Document ---
PROCEDURE NAME: CERVICAL SPINE W/O CONTRAST - 04/02/2016 CT C-SPINE WITHOUT CONTRAST: COMPARISON: 10/20/2015. FINDINGS: There is degenerative disk disease at multiple cervical levels, most significant at and below C4-5. There is loss of disk space height and marginal osteophyte formation at these levels. At C5-6, there is a broad-based disk osteophyte complex and uncovertebral osteophytes that are causing moderate central stenosis and mild bilateral bony foraminal stenosis. At C6-7, there is a broad-based disk osteophyte complex causing moderate central stenosis. However, these levels as well as the other visualized levels appear to be stable as compared to the previous study. There is no evidence of fracture, traumatic subluxation, or intrinsic osseous lesion, otherwise. Surrounding soft tissues are essentially unremarkable. IMPRESSION: Multilevel degenerative disk disease as described that appeared to be most significant at C5-6 and C6-7. However, the cervical spine appears to be stable. If not contraindicated, consider MRI of the cervical spine, which should provide better tissue contrast.
--- NOTE | 2016-04-02 09:26 | Diag Imaging Result Document ---
PROCEDURE NAME: CHEST-PORTABLE - 04/02/2016 AP PORTABLE CHEST AT 0835 HOURS: FINDINGS: The inspiration is suboptimal. There is bibasilar atelectasis. This is probably slightly improved on the right side since 04/01/2016. Otherwise, there has been no significant change. IMPRESSION: Slightly improved atelectasis.
[2016-04-02 10:55] LABS: BE 18.5 mmoll (-3.0-3.0); BLOOD TYPE ARTERIAL; METHB 1.2 % (0.0-1.5); O2(CT) 12.4 mL/dL (15.0-23.0); PO2(98.6) 66 mmHg (60-100); SAMPLE BLOOD; SAO2 95.1 % (95.0-100.0); THB 9.6 g/dL (11.5-17.4); pH(98.6) 7.37 (7.35-7.45)
[2016-04-02 10:58] LABS: ALLEN TEST YES; DRAW SITE R RADIAL; MODALITY BI PAP; PCO2(98.6) 81 mmHg (35-45)
--- NOTE | 2016-04-02 13:23 | PROGRESS NOTE ---
DATE: 04/02/2016 SUBJECTIVE: Ms. Peck reports she feels better. She is tolerating her oral intake. PHYSICAL EXAMINATION: Vital Signs: Afebrile. Heart rate 87, blood pressure 135/35. Her input and output continue to be negative. She is negative around 5 liters over the course of the hospitalization. General: No acute distress. Cardiovascular: She is in a regular rate and rhythm. She has no obvious murmurs. Pulmonary: Her chest exam is clear bilaterally, but very distant breath sounds were heard. She has poor inspiratory effort. Abdomen: Soft, nontender, nondistended. No obvious organomegaly. PERTINENT DATA: Her white count is 5.7, her hematocrit is 29.5, platelet count is 71,000. Her sodium is 138, potassium 3.4, BUN 35, creatinine 1. ASSESSMENT: 1. Diastolic heart failure. 2. Chronic obstructive pulmonary disease exacerbation. PLAN: The patient certainly has a component of obstructive sleep apnea/obesity hypoventilation/COPD. She is diuresing well. I would continue her on her diuresis at the current rate, as it seems to be doing well. We will check a proBNP in the morning.
[2016-04-02] MEDS: ZOFRAN IV PRN ×3 (13:39→23:01)
[2016-04-02] MEDS ORDERED: LACTULOSE PO ONE (14:01)
[2016-04-02] MEDS ORDERED: LACTULOSE PO PRN (14:15)
--- NOTE | 2016-04-02 18:51 | PROGRESS NOTE ---
DATE: 04/02/2016 SUBJECTIVE: The patient is resting comfortably with BiPAP on. She states that she started to feel a lot better and stronger. She also appears to be more awake and alert. OBJECTIVE: Vital Signs: Temperature 97.9 degrees, blood pressure 110/37, heart rate 90, respirations 21, O2 saturations 99% on BiPAP. General: This is a morbidly obese female, lying comfortably in bed, in no acute distress. Head: Normocephalic atraumatic. Heart: S1, S2. Normal. Regular rate and rhythm. Lungs: Clear to auscultation bilaterally. No wheezes, no rales. No rhonchi. Abdomen: Positive bowel sounds. Soft, nontender, nondistended. Extremities: 3+ edema with mild erythema in the lower extremities. Neurologic: The patient is alert and oriented x3. No focal neurologic deficits noted. LABS: White blood cell count 5.6, hemoglobin 8.8, hematocrit 29, platelets 71,000. Sodium 138, potassium 3.4, chloride 91, CO2 40, BUN 35, creatinine 1. Glucose 137. Chest x-ray shows slight improvement in the atelectasis seen on the initial chest x-ray. ASSESSMENT AND PLAN: 1. Acute hypercapnic respiratory failure. Continue with BiPAP support as well as bronchodilator therapy. Pulmonary is following. 2. Acute on chronic diastolic congestive heart failure exacerbation. Continue on IV Lasix. Cardiology is following. 3. Thrombocytopenia. Will continue to monitor this closely. If it continues to worsen will consult Hematology. 4. Morbid obesity. Aware. 5. Obstructive sleep apnea. The patient is currently on BiPAP. 6. Hypothyroidism. Continue on Synthroid. 7. Situational depression. Continue on Cymbalta. 8. Bilateral lower extremity cellulitis. Continue on Zosyn. 9. Diabetes mellitus type 2. Continue on sliding scale insulin.
[2016-04-02] MEDS: TOPAMAX PO SCH (20:32)
[2016-04-02] MEDS: MIRAPEX PO SCH (20:34)
[2016-04-02] MEDS: LIPITOR PO SCH (20:34)
[2016-04-02] MEDS: MYCOSTATIN POWDER TOP SCH (20:35)
[2016-04-02] MEDS: NEURONTIN PO SCH (20:35)
[2016-04-03] MEDS: DUONEB (A & A) INH SCH ×6 (02:57→22:54)
[2016-04-03 03:24] LABS: ALLEN TEST YES; BE 23.3 mmoll (-3.0-3.0); BLOOD TYPE ARTERIAL; DRAW SITE R RADIAL; METHB 1.6 % (0.0-1.5); O2(CT) 10.2 mL/dL (15.0-23.0); PO2(98.6) 50 mmHg (60-100); SAMPLE BLOOD; SRATE 4 BPM; THB 8.7 g/dL (11.5-17.4); pH(98.6) 7.39 (7.35-7.45)
[2016-04-03 03:26] LABS: MODALITY BI PAP
[2016-04-03 03:28] LABS: PCO2(98.6) 85 mmHg (35-45); SAO2 86.5 % (95.0-100.0)
[2016-04-03] MEDS: HUMALOG SUBQ SCH ×5 (04:45→21:42)
[2016-04-03 05:35] LABS: ALBUMIN 3.5 g/dL (3.5-5.0); CALCIUM 9.1 mg/dL (8.8-10.2); POTASSIUM 3.7 mmol/L (3.5-5.1)
[2016-04-03] MEDS: PROTONIX IV SCH (05:43)
[2016-04-03] MEDS: NORCO-5 PO PRN ×2 (05:44→17:09)
[2016-04-03] MEDS: ZOSYN 3.375 GM/NS 50 ML IV SCH ×4 (05:45→23:42)
[2016-04-03] MEDS: ZOFRAN IV PRN ×2 (05:51→11:44)
[2016-04-03 05:52] LABS: HEMATOCRIT 30.7 % (37.0-47.0); HEMOGLOBIN 9.1 g/dL (12.0-16.0); MCH 31.2 PG (27-31); MCHC 29.6 g/dL (33-37); MCV 105.1 FL (81-99); MPV 9.3 FL (7.4-10.4); RBC 2.92 XMIL (4.2-5.4)
--- NOTE | 2016-04-03 07:43 | Diag Imaging Result Document ---
PROCEDURE NAME: CHEST-PORTABLE - 04/03/2016 SINGLE FRONTAL RADIOGRAPH OF THE CHEST: COMPARISON: 03/13/2016. FINDINGS: Inspiration is suboptimal but stable. Bibasilar atelectasis is unchanged. There is probably a component of mild pulmonary venous congestion as well. No new consolidation is identified. Cardiac silhouette is stable. IMPRESSION: Essentially stable chest.
[2016-04-03] MEDS: MYCOSTATIN POWDER TOP SCH ×2 (09:00→21:40)
[2016-04-03] MEDS: MIRALAX PO SCH ×2 (09:00→21:39)
[2016-04-03] MEDS: DALIRESP PO SCH (09:00)
[2016-04-03] MEDS: LASIX IV SCH ×2 (09:00→21:39)
[2016-04-03] MEDS: FOLIC ACID PO SCH (09:00)
[2016-04-03] MEDS: SYNTHROID PO SCH (09:00)
[2016-04-03] MEDS: CYMBALTA PO SCH (09:00)
[2016-04-03 10:42] LABS: ALLEN TEST YES; BE 19.3 mmoll (-3.0-3.0); BLOOD TYPE ARTERIAL; DRAW SITE R RADIAL; METHB 1.7 % (0.0-1.5); O2(CT) 12.9 mL/dL (15.0-23.0); PO2(98.6) 80 mmHg (60-100); SAMPLE BLOOD; SAO2 96.8 % (95.0-100.0); THB 9.8 g/dL (11.5-17.4); pH(98.6) 7.32 (7.35-7.45)
[2016-04-03 10:45] LABS: MODALITY CANNULA; PCO2(98.6) 95 mmHg (35-45)
[2016-04-03] MEDS ORDERED: NARCAN IV ONE (11:28)
[2016-04-03] MEDS: TYLENOL PO PRN ×2 (11:44→23:42)
--- NOTE | 2016-04-03 13:39 | PROGRESS NOTE ---
DATE: 04/03/2016 SUBJECTIVE: Ms. Peck reports she has had worsening pain in her bilateral lower extremities. Apparently her narcotic pain medications have been held secondary to issues with hypercapnia and sedation. OBJECTIVE: Vital Signs: On examination, she is afebrile. Heart rate of 96, blood pressure 148/48. Her I's and O's continue to be negative. She is negative around 6 L over the course of the hospitalization. General: No acute distress. Cardiovascular: She is in a regular rate and rhythm. She has no obvious murmurs. She has no S3. She has no lower extremity edema. Chest: Exam reveals coarse bilateral breath sounds. No increased work of breathing. Abdomen: Soft, nontender, nondistended. She has no obvious organomegaly. Skin Exam: Warm and dry throughout. PERTINENT DATA: Sodium 141, potassium 3.7, BUN 29 and creatinine 1.0, which is down from 35 and 1.0 yesterday. Her proBNP was 2408, which is down from 4769 on the twenty-second. Her ABG had a pH of 7.32, pCO2 of 95, PO2 of 80. The pCO2 is up from 81 yesterday and 70 on the twenty-first. ASSESSMENT: 1. Hypercapnic respiratory failure. 2. Diastolic heart failure. PLAN: From a diastolic heart failure standpoint, she seems to be improving. I would continue with diuresis as she seems to be tolerating this quite well.
[2016-04-03 13:44] LABS: ALLEN TEST YES; BLOOD TYPE ARTERIAL; DRAW SITE R RADIAL; METHB 1.7 % (0.0-1.5); PO2(98.6) 89 mmHg (60-100); SAMPLE BLOOD; SAO2 97.6 % (95.0-100.0); THB 9.7 g/dL (11.5-17.4); pH(98.6) 7.37 (7.35-7.45)
[2016-04-03 13:47] LABS: PCO2(98.6) 82 mmHg (35-45)
[2016-04-03 13:48] LABS: MODALITY CANNULA
[2016-04-03] MEDS: VOLTAREN 1% GEL TOP SCH ×3 (13:51→21:41)
--- NOTE | 2016-04-03 16:53 | PROGRESS NOTE ---
DATE: 04/03/2016 SUBJECTIVE: The patient is lethargic this morning. However, her pCO2 was noted to be 95 this morning. Adjustments were made to her BiPAP and she is currently on BiPAP at this time. OBJECTIVE: Vital Signs: Temperature 97, blood pressure 148/48, heart rate 96, respirations 18, O2 saturations 97% on BiPAP. General: This is a morbidly obese female, lying in bed, in no acute distress. Head: Normocephalic, atraumatic. Heart: S1, S2 normal. Regular rate and rhythm. Lungs: Clear to auscultation bilaterally. No wheezing, no rales. No rhonchi. Abdomen: Positive bowel sounds. Soft, nontender, nondistended. Extremities: 3+ edema with erythema involving both lower extremities. LABS: White blood cell count 5.3, hemoglobin 9.1, hematocrit 30, platelets 76. ABG: pH of 7.32, pCO2 of 95, pO2 of 80. Bicarb 39. O2 saturations 92%. Sodium 141, potassium 3.7, chloride 92, CO2 of 42, BUN 29, creatinine 1, glucose 165. ASSESSMENT AND PLAN: 1. Acute hypercapnic respiratory failure. This appears to be worse this morning. Adjustments to the patient's BiPAP have been made by the sweater designer. Continue with bronchodilator therapy. 2. Acute on chronic diastolic congestive heart failure exacerbation. Continue with diuresis. Cardiology is following. 3. Thrombocytopenia. Slightly improved today. Continue to monitor closely. 4. Obstructive sleep apnea. Aware. The patient is currently on BiPAP. 5. Hypothyroidism. Continue on Synthroid. 6. Situational depression. Continue on Cymbalta. 7. Bilateral lower extremity cellulitis. Continue on Zosyn. 8. Diabetes mellitus type 2. Continue on sliding scale insulin. 9. Restless legs syndrome. Continue on Requip.
[2016-04-03] MEDS: MIRAPEX PO SCH (21:40)
[2016-04-03] MEDS: NEURONTIN PO SCH (21:40)
[2016-04-03] MEDS: LIPITOR PO SCH (21:40)
[2016-04-03] MEDS: TOPAMAX PO SCH (21:40)
[2016-04-03] MEDS: CALMOSEPTINE OINTMENT TOP PRN (23:54)
[2016-04-04] MEDS: DUONEB (A & A) INH SCH ×6 (02:54→23:31)
[2016-04-04] MEDS: NORCO-5 PO PRN ×3 (03:26→20:55)
[2016-04-04 03:30] LABS: ALLEN TEST YES; BE 22.1 mmoll (-3.0-3.0); BLOOD TYPE ARTERIAL; DRAW SITE R RADIAL; METHB 1.8 % (0.0-1.5); O2(CT) 10.4 mL/dL (15.0-23.0); PO2(98.6) 87 mmHg (60-100); SAMPLE BLOOD; SAO2 97.9 % (95.0-100.0); SRATE 4 BPM; THB 7.7 g/dL (11.5-17.4); pH(98.6) 7.41 (7.35-7.45)
[2016-04-04 03:31] LABS: MODALITY BI PAP; PCO2(98.6) 78 mmHg (35-45)
[2016-04-04] MEDS: ZOFRAN IV PRN ×2 (03:41→21:02)
[2016-04-04] MEDS: ZOSYN 3.375 GM/NS 50 ML IV SCH ×4 (04:18→23:22)
[2016-04-04 05:37] LABS: HEMOGLOBIN 9.1 g/dL (12.0-16.0); MCH 31.1 PG (27-31); MCHC 29.4 g/dL (33-37); MCV 105.8 FL (81-99); MPV 8.3 FL (7.4-10.4); RBC 2.93 XMIL (4.2-5.4)
[2016-04-04 05:49] LABS: AGAP 9; ALBUMIN 3.2 g/dL (3.5-5.0); BUN 18 mg/dL (8-22); CALCIUM 8.9 mg/dL (8.8-10.2); CHLORIDE 92 mmol/L (98-107); COSMO 286; MAGNESIUM 1.9 mg/dL (1.5-2.7); POTASSIUM 3.5 mmol/L (3.5-5.1); SODIUM 141 mmol/L (136-145); TCO2 40 mmol/L (25-35)
[2016-04-04] MEDS: SODIUM CHLORIDE 0.9% INJ SCH (06:05)
[2016-04-04] MEDS: PROTONIX IV SCH ×2 (06:05→19:23)
[2016-04-04] MEDS: HUMALOG SUBQ SCH ×5 (06:05→20:30)
--- NOTE | 2016-04-04 08:49 | Diag Imaging Result Document ---
PROCEDURE NAME: CHEST-PORTABLE - 04/04/2016 AP PORTABLE CHEST AT 0500 HOURS: FINDINGS: There is cardiomegaly. The inspiration is suboptimal. There is some bibasilar atelectasis. Compared to 04/03/2016, there has been no appreciable change. IMPRESSION: Atelectasis and cardiomegaly.
[2016-04-04] MEDS: SYNTHROID PO SCH (09:10)
[2016-04-04] MEDS: MIRALAX PO SCH ×2 (09:10→20:42)
[2016-04-04] MEDS: FOLIC ACID PO SCH (09:10)
[2016-04-04] MEDS: NEUTRA-PHOS PO SCH ×4 (09:10→20:43)
[2016-04-04] MEDS: LASIX IV SCH ×2 (09:10→20:42)
[2016-04-04] MEDS: MYCOSTATIN POWDER TOP SCH ×2 (09:11→20:44)
[2016-04-04] MEDS: CYMBALTA PO SCH (09:11)
[2016-04-04] MEDS: DALIRESP PO SCH (09:11)
[2016-04-04] MEDS: VOLTAREN 1% GEL TOP SCH ×4 (09:11→20:44)
--- NOTE | 2016-04-04 12:11 | PROGRESS NOTE ---
DATE: 04/04/2016 SUBJECTIVE: Ms. Peck looks to be feeling better today. She is in better spirits. PHYSICAL EXAMINATION: Vital Signs: She is afebrile. Her heart rate is 100, blood pressure 133/43. Her I's and O's continue to be negative. Over the last 24 hours, she is negative around 2 L. General: No acute distress. Cardiovascular: She is in a mildly tachycardic but regular rhythm. She has no obvious murmurs. She has 1+ bilateral lower extremity edema. Chest: Has coarse bilateral breath sounds with poor inspiratory effort. I did not hear any audible wheezing, but she has very distant lung sounds. Abdomen: Soft, nontender, obese. PERTINENT DATA: Her sodium is 141, potassium 3.5, BUN is 18, creatinine 0.9. Her Mag level is 1.9. Her ABG was reviewed. White count 5.4, hematocrit 31, platelet count is 58. ASSESSMENT: 1. Diastolic heart failure. 2. Hypercapnic respiratory failure. PLAN: We will continue her on her IV furosemide. She seems to be diuresing quite well. We will check a proBNP in the morning. Notably, her platelets continue to drop. She is not currently on any enoxaparin or heparin. Unsure of the exact reason. Perhaps some of her antibiotics could be causing that. I will defer that to the primary team to investigate. She is trending towards hypokalemia and hypomagnesemia. I will replete both of those if not already performed today. I have no further recommendations at this time.
--- NOTE | 2016-04-04 17:51 | PROGRESS NOTE ---
DATE: 04/04/2016 SUBJECTIVE: The patient is resting comfortably in bed. She is now on nasal cannula and doing well. OBJECTIVE: Vital Signs: Temperature 97.6 degrees, blood pressure 143/60, heart rate 105, respirations 19, O2 saturations 98% on 4 L nasal cannula. General: This is a morbidly obese, elderly female, who is lying in bed, in no acute distress. Head: Normocephalic, atraumatic. Heart: S1, S2. Normal. Tachycardic. Lungs: Clear to auscultation bilaterally. No wheezes, no rales. No rhonchi. Abdomen: Positive bowel sounds. Soft, nontender, nondistended. Extremities: 3+ edema with erythema. Neurologic: The patient is alert and oriented x3. No focal neurologic deficits noted. LABS: White blood cell count 5.4, hemoglobin 9.1, hematocrit 31, platelets 58,000. ABG pH of 7.4, pCO2 78, PO2 87, bicarb 42. Sodium 141, potassium 3.5, chloride 92, CO2 40, BUN 18, creatinine 0.9, glucose 158, phosphorus 2.5, magnesium 1.9. ASSESSMENT AND PLAN: 1. Acute hypercapnic respiratory failure. Improved. Continue on BiPAP at night plus bronchodilator therapy and antibiotics. 2. Acute on chronic diastolic congestive heart failure exacerbation. Continue on IV Lasix. 3. Hypophosphatemia. Will replace the patient's phosphorus. 4. Hypothyroidism. Continue on Synthroid. 5. Obstructive sleep apnea. Aware. The patient is on BiPAP. 6. Situational depression. Continue on Cymbalta. 7. Thrombocytopenia. The patient's platelet count is lower today. We will continue to monitor this closely. 8. Gastrointestinal prophylaxis. Continue on Protonix. 9. We will consult physical therapy and occupational therapy.
[2016-04-04] MEDS: TOPAMAX PO SCH (20:42)
[2016-04-04] MEDS: LIPITOR PO SCH (20:42)
[2016-04-04] MEDS: TYLENOL PO PRN (20:42)
[2016-04-04] MEDS: NEURONTIN PO SCH (20:43)
[2016-04-04] MEDS: MIRAPEX PO SCH (20:43)
[2016-04-04] MEDS: URISPAS PO PRN (23:20)
[2016-04-05] MEDS: TYLENOL PO PRN ×3 (01:58→18:11)
[2016-04-05] MEDS: DUONEB (A & A) INH SCH ×6 (03:33→23:05)
[2016-04-05] MEDS: ZOSYN 3.375 GM/NS 50 ML IV SCH ×4 (05:12→23:35)
[2016-04-05] MEDS: NORCO-5 PO PRN ×3 (05:29→23:35)
[2016-04-05] MEDS: URISPAS PO PRN ×3 (05:29→18:11)
[2016-04-05] MEDS: SODIUM CHLORIDE 0.9% INJ SCH (05:30)
[2016-04-05] MEDS: PROTONIX IV SCH ×2 (05:30→06:13)
[2016-04-05 05:37] LABS: HEMATOCRIT 29.7 % (37.0-47.0); HEMOGLOBIN 8.6 g/dL (12.0-16.0); MCV 107.2 FL (81-99); MPV 8.9 FL (7.4-10.4); RBC 2.77 XMIL (4.2-5.4)
[2016-04-05 05:51] LABS: ALLEN TEST YES; BE 22.1 mmoll (-3.0-3.0); BLOOD TYPE ARTERIAL; DRAW SITE R RADIAL; METHB 1.5 % (0.0-1.5); O2(CT) 10.1 mL/dL (15.0-23.0); PO2(98.6) 67 mmHg (60-100); SAMPLE BLOOD; SAO2 96.1 % (95.0-100.0); THB 7.7 g/dL (11.5-17.4); pH(98.6) 7.41 (7.35-7.45)
[2016-04-05 05:52] LABS: PCO2(98.6) 78 mmHg (35-45)
[2016-04-05 05:53] LABS: MODALITY BI PAP
[2016-04-05] MEDS: HUMALOG SUBQ SCH ×5 (06:21→23:11)
[2016-04-05 06:42] LABS: AGAP 6; ALBUMIN 3.2 g/dL (3.5-5.0); BUN 15 mg/dL (8-22); CHLORIDE 94 mmol/L (98-107); COSMO 286; MAGNESIUM 1.8 mg/dL (1.5-2.7); SODIUM 141 mmol/L (136-145); TCO2 41 mmol/L (25-35)
[2016-04-05] MEDS: FOLIC ACID PO SCH (09:39)
[2016-04-05] MEDS: NEUTRA-PHOS PO SCH ×3 (09:39→16:22)
[2016-04-05] MEDS: PEPCID PO SCH (09:39)
[2016-04-05] MEDS: SYNTHROID PO SCH (09:39)
[2016-04-05] MEDS: LASIX IV SCH ×3 (09:39→23:11)
[2016-04-05] MEDS: DALIRESP PO SCH (09:39)
[2016-04-05] MEDS: CYMBALTA PO SCH (09:39)
[2016-04-05] MEDS: VOLTAREN 1% GEL TOP SCH ×5 (09:40→23:16)
[2016-04-05] MEDS: MYCOSTATIN POWDER TOP SCH ×3 (09:40→23:16)
[2016-04-05] MEDS: MIRALAX PO SCH ×3 (09:40→23:15)
[2016-04-05] MEDS: CALMOSEPTINE OINTMENT TOP PRN (09:40)
[2016-04-05] MEDS: ZOFRAN IV PRN ×2 (09:43→19:35)
[2016-04-05] MEDS ORDERED: MAGNESIUM SULFATE 2 GM/S.W.I. 50 ML IV ONE (12:06)
--- NOTE | 2016-04-05 12:24 | PROGRESS NOTE ---
DATE: 04/05/2016 SUBJECTIVE: Ms. Peck reports she is doing better today. Breathing has remained stable. PHYSICAL EXAMINATION: Vital Signs: She is afebrile. Heart rate of 112, blood pressure 141/41. Her Is and Os continue to be negative. She is -1700 mL over the last 24. Generally: No acute distress. Cardiovascular: She is in a regular rate and rhythm. No obvious murmurs. Extremities: She has 1+ bilateral lower extremity edema. Chest Examination: Sounds clear with somewhat distant breath sounds. No increased work of breathing. Abdomen: Soft, nontender. PERTINENT DATA: White count 5.1, hematocrit 29, platelet count 54,000. Her sodium is 141, potassium is 4, BUN is 15, creatinine 0.9. Magnesium level is 1.8. ProBNP is 1738 which is down from a peak of 4769. ASSESSMENT: 1. Diastolic heart failure. 2. Chronic obstructive pulmonary disease exacerbation. PLAN: We will continue on IV diuresis. I will give her 2 g of magnesium today if that has not already been repleted. We will continue on IV diuresis. Again, the plan is to consider a switch over to oral diuretics in the next 24-48 hours.
[2016-04-05] MEDS ORDERED: IMITREX PO ONE (14:29)
--- NOTE | 2016-04-05 16:24 | PROGRESS NOTE ---
DATE: 04/05/2016 SUBJECTIVE: The patient is sitting on the bedside commode. She states that her shortness of breath has improved. She slept with BiPAP last night. OBJECTIVE: Vital Signs: Temperature 97.8 degrees, blood pressure 141/41, heart rate 96, respirations 22, O2 saturations 95% on 4 L nasal cannula. General: This is a morbidly obese female sitting on the bedside commode in no acute distress. Head: Normocephalic, atraumatic. Heart: S1, S2. Normal. Tachycardic. Lungs: Clear to auscultation bilaterally. No crackles. No rales. Abdomen: Positive bowel sounds. Soft, obese, nontender, nondistended. Extremities: 3+ edema with mild erythema. Neurologic: The patient is alert oriented x3. LABS: White blood cell count 5.1, hemoglobin 8.6, hematocrit 29, platelets 54,000. ABG, pH of 7.4, pCO2 78, PO2 67, bicarb 42. Sodium 141, potassium 4, chloride 94, CO2 41, BUN 15, creatinine 0.9, glucose 170, phosphorus 3.2, magnesium 1.8, albumin 3.2. ASSESSMENT AND PLAN: 1. Acute hypercapnic respiratory failure. Improved. Continue on BiPAP at night. 2. Acute on chronic diastolic congestive heart failure exacerbation. Continue on IV Lasix. Cardiology is following. 3. Morbid obesity. Aware. 4. Hypothyroidism. Continue on Synthroid. 5. Obstructive sleep apnea. Aware. 6. Thrombocytopenia. The patient's platelet count continues to drop. Will consult Hematology for further recommendations. 7. Situational depression. Continue on Cymbalta. 8. Restless legs syndrome. Continue on Mirapex. 9. Constipation. Resolved. Continue on MiraLAX. 10. Will consult physical therapy.
[2016-04-05] MEDS: LIPITOR PO SCH ×2 (19:35→23:12)
[2016-04-05] MEDS: TOPAMAX PO SCH ×2 (19:35→23:16)
[2016-04-05] MEDS: NEURONTIN PO SCH ×2 (19:35→23:16)
[2016-04-05] MEDS: MIRAPEX PO SCH ×2 (19:35→23:16)
[2016-04-06] MEDS: DUONEB (A & A) INH SCH ×6 (03:05→23:30)
[2016-04-06 05:00] LABS: ALLEN TEST YES; BE 22.1 mmoll (-3.0-3.0); BLOOD TYPE ARTERIAL; DRAW SITE R RADIAL; METHB 1.7 % (0.0-1.5); PO2(98.6) 194 mmHg (60-100); SAMPLE BLOOD; SAO2 99.8 % (95.0-100.0); THB 7.8 g/dL (11.5-17.4)
[2016-04-06 05:01] LABS: MODALITY BI PAP; PCO2(98.6) 52 mmHg (35-45); pH(98.6) 7.56 (7.35-7.45)
[2016-04-06] MEDS: TYLENOL PO PRN ×3 (05:37→22:54)
[2016-04-06] MEDS: ZOFRAN IV PRN ×2 (05:37→22:47)
[2016-04-06] MEDS: ZOSYN 3.375 GM/NS 50 ML IV SCH ×4 (05:37→22:49)
[2016-04-06] MEDS: URISPAS PO PRN ×2 (05:37→11:36)
[2016-04-06 05:46] LABS: HEMATOCRIT 29.4 % (37.0-47.0); HEMOGLOBIN 8.7 g/dL (12.0-16.0); MCH 31.6 PG (27-31); MCHC 29.6 g/dL (33-37); MCV 106.9 FL (81-99); MPV 8.4 FL (7.4-10.4); RBC 2.75 XMIL (4.2-5.4)
[2016-04-06 05:59] LABS: AGAP 9; ALBUMIN 3.1 g/dL (3.5-5.0); BUN 13 mg/dL (8-22); CALCIUM 9.2 mg/dL (8.8-10.2); CHLORIDE 91 mmol/L (98-107); COSMO 278; MAGNESIUM 1.9 mg/dL (1.5-2.7); SODIUM 138 mmol/L (136-145); TCO2 38 mmol/L (25-35)
[2016-04-06] MEDS: HUMALOG SUBQ SCH ×4 (06:34→22:49)
[2016-04-06 06:44] LABS: HEMOGLOBIN A1C 5.7 % (4.8-6.0)
[2016-04-06] MEDS: PEPCID PO SCH (08:14)
[2016-04-06] MEDS: SYNTHROID PO SCH (08:14)
[2016-04-06] MEDS: CYMBALTA PO SCH (08:14)
[2016-04-06] MEDS: FOLIC ACID PO SCH (08:14)
[2016-04-06] MEDS: DALIRESP PO SCH (08:14)
[2016-04-06] MEDS: NORCO-5 PO PRN ×2 (08:14→17:40)
[2016-04-06] MEDS: LASIX IV SCH ×2 (08:19→13:18)
--- NOTE | 2016-04-06 08:24 | Diag Imaging Result Document ---
PROCEDURE NAME: CHEST-PORTABLE - 04/06/2016 PORTABLE CHEST X-RAY, 04/06/2016: COMPARISON: 04/04/2016. FINDINGS: Heart size and pulmonary vascularity remain enlarged. There is some stable linear atelectasis in the right mid lung. Lung volumes are improved, with decrease in the atelectasis in the lung bases. IMPRESSION: Improved lung volumes with increasing bibasilar atelectasis. Otherwise, no change from prior.
[2016-04-06] MEDS: MYCOSTATIN POWDER TOP SCH (10:10)
[2016-04-06] MEDS: MIRALAX PO SCH ×2 (10:11→22:49)
[2016-04-06] MEDS: VOLTAREN 1% GEL TOP SCH ×4 (10:11→17:50)
--- NOTE | 2016-04-06 14:37 | PROGRESS NOTE ---
DATE: 04/06/2016 SUBJECTIVE: Patient has no focal complaints. She is complaining her Rausch is causing irritation. Subsequently the patient feels like her breathing has overall improved. OBJECTIVE: Vital signs: Heart rate 105, blood pressure 125/39, respiratory rate of 20, temp 96.4 degrees. General: Obese female, in no acute distress. She does have her BiPAP on but she does not seem to have any difficulty breathing. Cardiovascular: Regular rate and rhythm. Pulmonary: Bilateral breath sounds. Clear to auscultation. Diminished at the bases. GI: Soft, nontender, nondistended. Bowel sounds are positive. LABORATORY DATA: CMP looked okay. Hemoglobin and hematocrit are 8 and 29. Her last chest x-ray from today shows improved lung volumes but increasing atelectasis. PROBLEM LIST: 1. Acute hypercapnic respiratory failure. She seems to be improving on BiPAP. We will continue to cycle that off; just BiPAP at night and p.r.n. 2. Diastolic heart failure, acute. We will continue Lasix but decrease dose. Cardiology is following. 3. Thrombocytopenia. Her platelet count has dropped a little further, 52 today. As far as medications, she is not on anything that is obviously toxic. Hematology/oncology has been consulted but I do not think they have evaluated her yet. May go ahead and ultrasound her abdomen to evaluate for splenomegaly. We will continue to follow. DISPOSITION: I think she is probably stable for the floor at this point. Additionally, I would consider rehab. Will continue to evaluate further. I do not see that director social has evaluated her yet for that. We will continue to follow.
--- NOTE | 2016-04-06 14:46 | PROGRESS NOTE ---
DATE: 04/06/2016 SUBJECTIVE: Ms. Peck reports she is doing better today. PHYSICAL EXAMINATION: Vital Signs: She is afebrile. Heart rate is 97, blood pressure 131/37. Input and output: Continue to be negative. She was roughly -2.6 L over the course of the last 24 hours. General: No acute distress. Cardiovascular: She is in a regular rate and rhythm. She has somewhat distant heart sounds. She has 1+ lower extremity edema. Chest: Coarse bilateral breath sounds throughout. No increased work of breathing. Abdomen: Soft, nontender. PERTINENT DATA: White count 4.9. Hematocrit 29.4, platelet count is 52,000 which is stable. ABG shows a pH of 7.56, pCO2 of 52, which is markedly improved. Her A-a gradient is 126 which is much improved from previous couple of days. Sodium 138, potassium 4, BUN 13, creatinine 0.9. ASSESSMENT: 1. Chronic obstructive pulmonary disease exacerbation. 2. Diastolic heart failure. PLAN: She continues to diurese quite well. We will likely plan on transitioning her over to oral diuretics in the morning. Presently, she continues on furosemide at a dose of 40 mg IV q.12 hours and seems to be diuresing adequately.
[2016-04-06] MEDS: LIPITOR PO SCH (22:47)
[2016-04-06] MEDS: TOPAMAX PO SCH (22:47)
[2016-04-06] MEDS: NEURONTIN PO SCH (22:48)
[2016-04-06] MEDS: MIRAPEX PO SCH (22:48)
[2016-04-07] MEDS: LASIX IV SCH ×2 (00:14→12:14)
--- NOTE | 2016-04-07 01:34 | CONSULTATION ---
DATE OF CONSULTATION: 04/06/2016 REQUESTING PHYSICIAN: Dr. Terrell Mireles. REASON FOR CONSULTATION: Thrombocytopenia. HPI: Patient is a 70-year-old female, who was seen by me in 09/2014. At that time, she was noted to have a platelet count of 37,000. She has had thrombocytopenia since 11/2011 in the hospital records with baseline platelets somewhere in the 70 to 120,000. She denies hepatitis. Ultrasound in the past has not revealed splenomegaly. Her chronic thrombocytosis was thought to be immune in nature. She has not followed up in the clinic. This time she was admitted with shortness of breath and chest pain. She has a history of COPD. Cardiology and pulmonology are involved. Upon admission, her platelet counts were 132,000, and this has gradually trended down, and over the last few days the platelet count is in the 50s. She has mild ecchymosis on her extremities, but denies blood per rectum, melena or any significant hematuria. PAST MEDICAL HISTORY: Hypertension, mitral valve prolapse, hyperlipidemia, COPD, CAD, GERD, diabetes and anxiety. PAST SURGICAL HISTORY: Arthroscopy and breast augmentation. SOCIAL HISTORY: Patient denies smoking, alcohol, or substance abuse. ALLERGIES: Sulfa. CURRENT MEDICATIONS: DuoNeb's, Lipitor, Voltaren, Cymbalta, Pepcid, folic acid, Lasix, Neurontin, levothyroxine, lactulose, Zofran, Zosyn, started on 04/01/2016 topiramate. REVIEW OF SYSTEMS: The patient complains tiredness and fatigue. She denies chest pain. No dizziness. She denies glandular enlargement in the neck, axilla, or the groin. She denies early satiety. All other review of systems are negative. PHYSICAL EXAMINATION: General: Patient is an elderly female, in no acute distress. Vital Signs: Temperature 97.6, pulse 97, blood pressure 131/37. Eyes: EOMI. PERRLA. Anicteric. Mucous membranes appear moist. Neck: Supple without JVD, thyromegaly, or nodules. Lymph node survey is negative. Cardiac: Regular rate and rhythm. Normal S1, S2. Chest: Reveals bilateral occasional rhonchi. Abdomen: Protuberant, soft, nontender without hepatosplenomegaly or masses. Extremities: Reveal mild edema. Neurological: Alert and oriented x3. No focal motor deficits. LABORATORY DATA: White count 4.9, hemoglobin 8.7, hematocrit 29, platelets 52,000, MPV 8.6, MCV 106. PT 14.4, PTT 20, INR 1.0. D-dimer 1.2. ASSESSMENT AND PLAN: Thrombocytopenia: Patient has chronic thrombocytopenia. Previously this has been thought to be immune in nature. Previously abdominal ultrasound has not revealed any splenomegaly. She also is currently on Zosyn, however, in the drop has not been significant over the last 3 days. So, I suspect this is most likely immune/hypersplenism. For now continue to simply monitor and continue current management. Transfuse if bleeding or platelet count less than 20,000. Check B12 and folate levels. I will continue to follow the patient along with you.
[2016-04-07] MEDS: NORCO-5 PO PRN ×3 (01:47→22:36)
[2016-04-07] MEDS: DUONEB (A & A) INH SCH ×6 (03:46→23:40)
[2016-04-07 05:25] LABS: ALLEN TEST YES; BE 15.5 mmoll (-3.0-3.0); BLOOD TYPE ARTERIAL; DRAW SITE R RADIAL; PO2(98.6) 95 mmHg (60-100); SAMPLE BLOOD; pH(98.6) 7.41 (7.35-7.45)
[2016-04-07 05:26] LABS: MODALITY BI PAP
[2016-04-07 05:27] LABS: PCO2(98.6) 69 mmHg (35-45)
[2016-04-07] MEDS: ZOSYN 3.375 GM/NS 50 ML IV SCH ×4 (05:50→22:36)
[2016-04-07] MEDS: HUMALOG SUBQ SCH ×4 (06:34→22:40)
[2016-04-07] MEDS: ZOFRAN IV PRN ×4 (06:34→22:33)
[2016-04-07] MEDS: TYLENOL PO PRN ×2 (06:34→15:40)
[2016-04-07 07:43] LABS: AGAP 10; BUN 12 mg/dL (8-22); CALCIUM 9.6 mg/dL (8.8-10.2); CHLORIDE 95 mmol/L (98-107); COSMO 286; MAGNESIUM 1.8 mg/dL (1.5-2.7); SODIUM 142 mmol/L (136-145); TCO2 37 mmol/L (25-35)
[2016-04-07 07:59] LABS: HEMATOCRIT 32.7 % (37.0-47.0); HEMOGLOBIN 9.6 g/dL (12.0-16.0); MCH 31.2 PG (27-31); MCHC 29.4 g/dL (33-37); MCV 106.2 FL (81-99); MPV 8.3 FL (7.4-10.4); RBC 3.08 XMIL (4.2-5.4)
--- NOTE | 2016-04-07 08:14 | Diag Imaging Result Document ---
PROCEDURE NAME: US ABDOMEN-COMPLETE - 04/07/2016 ULTRASOUND ABDOMEN COMPLETE: COMPARISON: 01/27/2016. FINDINGS: The gallbladder is somewhat distended, very similar to prior. This measures about 14 cm maximally. No wall thickening or gallstones. No surrounding free fluid. The patient is not tender over the gallbladder. The liver is mildly hyperechogenic similar to prior compatible with fatty change. The pancreas, spleen, and both kidneys are normal. Spleen size measures 13.1 x 4.6 cm. The common bile duct measures 5 mm. Aorta, IVC, and main portal vein are patent. IMPRESSION: Fatty liver. Slightly distended gallbladder without any other abnormality visible. Overall, no significant change from prior.
[2016-04-07] MEDS: MIRALAX PO SCH ×2 (08:21→22:38)
[2016-04-07] MEDS: SYNTHROID PO SCH (08:21)
[2016-04-07] MEDS: FOLIC ACID PO SCH (08:21)
[2016-04-07] MEDS: PEPCID PO SCH (08:21)
[2016-04-07] MEDS: CYMBALTA PO SCH (08:21)
[2016-04-07] MEDS: VOLTAREN 1% GEL TOP SCH ×5 (08:23→22:45)
[2016-04-07] MEDS: MYCOSTATIN POWDER TOP SCH ×3 (09:35→22:42)
[2016-04-07] MEDS: DALIRESP PO SCH (09:56)
[2016-04-07] MEDS ORDERED: MAGNESIUM SULFATE 2 GM/S.W.I. 50 ML IV ONE (12:14)
--- NOTE | 2016-04-07 12:35 | PROGRESS NOTE ---
DATE: 04/07/2016 SUBJECTIVE: Ms. Peck reports she is doing okay. She has had some issues with nausea. PHYSICAL EXAMINATION: Vital signs: She is afebrile. Heart rate of 101, blood pressure 141/45. Intake and output: Her I's and O's continue to be negative. Over the last 24 hours she is negative around 1300 mL. Generally: No acute distress. Cardiovascular: She is in a regular rate and rhythm. No obvious murmurs. She has no S3. She has 1+ bilateral lower extremity edema. Chest Exam: Sounds clear. Somewhat distant breath sounds. Poor inspiratory effort. Abdomen: Soft, nontender, nondistended. She has no obvious organomegaly. Skin Exam: Warm and dry throughout. PERTINENT DATA: Sodium 142, potassium 4. Her BUN is 12, creatinine 0.9. Her white count is 5.4, hematocrit is 32.7, platelet count is 52,000 which is stable. Magnesium level is 1.8. ASSESSMENT: 1. Diastolic heart failure. 2. Chronic obstructive pulmonary disease exacerbation. PLAN: Patient continues to diurese quite well. I would continue her on her IV diuretics during the course of the inpatient hospitalization. At the point she is stable for discharge from a COPD standpoint, I would recommend discharge her home on an elevated dose of diuretics. She is on furosemide 40 mg b.i.d. I would make consideration at least increasing it up to either 60 b.i.d. or possibly even 80 mg b.i.d. As long as she has follow up with her primary care physician with an outpatient BMP within a week or 2 I believe that would be appropriate. She seems to be diuresing quite well and overall symptoms from heart failure seem to be improved. Please contact us with further questions. I do not have any further recommendations on this patient.
--- NOTE | 2016-04-07 14:57 | PALLIATIVE CARE CONSULTATION ---
DATE: 04/07/2016 REQUESTING PHYSICIAN: Dr. Mireles. REASON FOR CONSULTATION: Goals of care. HISTORY OF PRESENT ILLNESS: This is a 70-year-old morbidly obese female with past medical history of chronic hypercapnic respiratory failure, COPD, obstructive sleep apnea, narcolepsy, diabetes mellitus type 2, chronic pain syndrome, mitral valve prolapse, chronic diastolic heart failure, hypertension and Crohn disease. She was most recently admitted on 03/31/2016 after presenting to the ED with complaints of sudden onset chest pain with increasing shortness of breath. She has had numerous admissions within the past 3 months for diastolic heart failure. While in the ED it was found that she had an elevated proBNP of 3648. Blood gases revealed a pCO2 of 83, PO2 of 99 and a pH of 7.37. She was then admitted to the CICU for further evaluation. However now she is on the medical floor. She is sitting up in the hospital bed. She denies shortness of breath at rest. She complains of pain to her low back and bilateral legs especially when transferring to the bedside commode. She also complains of anxiety and depression. She states that prayer is how she jaiden with her anxiety and depression, has asked for a disciplinary hearing officer referral. She does not have any family present at this time. The palliative care team has been consulted to assist with goals of care. REVIEW OF SYSTEMS: Twelve-point review of system has been conducted and otherwise negative except those mentioned in the HPI. PAST MEDICAL HISTORY: See HPI. PAST SURGICAL HISTORY: 1. Breast reduction. 2. Arthroscopic knee surgery. PHYSICAL EXAM: General: This is a 70-year-old morbidly obese female who is sitting up in the hospital bed. She does not appear to be in any acute distress. HEENT: Atraumatic, normocephalic. Neck: Supple. Cardiovascular: Regular rate and rhythm. Heart sounds are distant. Pulmonary: Lung sounds are diminished. Respirations are nonlabored. Abdomen: Obese, soft. Extremities: Pulses are palpable. She does have 1+ pitting edema to bilateral lower extremities Skin: She has mild ecchymoses to bilateral arms. Otherwise skin is warm and dry. IMPRESSION: This is a 70-year-old morbidly obese female with a past medical history as listed above in the history of present illness. The palliative care team was consulted to assist with goals of care. I sat down with Ms. Peck to discuss what her current discharge plan is. She states that she is not able to live alone anymore as she is not able to take care of herself and her family is not able to help take care of her. She states that her plan is to discharge to rehab and then transition to long-term care. She does have an advanced directive and power of cloth cutter. She states her power of cloth cutter is her sister Kylah Blandon and her advanced directive states that she would want all aggressive measures if needed. As mentioned above, she does complain of anxiety and depression related to her not being able to go back home. She states that prayer is how she jaiden with her anxiety and depression and she has asked for a disciplinary hearing officer referral which will be placed. Currently Ms. Peck's palliative performance scale appears to be 40%. The palliative care team will continue to follow daily until discharge. Thank you for this consultation. Dictated by LYNN Wu for Roland Stanford MD
--- NOTE | 2016-04-07 16:30 | PROGRESS NOTE ---
DATE: 04/07/2016 SUBJECTIVE: The patient is feeling weak, but a little better. Still complaining of having shortness of breath. She denied having any cough. Denies having any fever or chills. OBJECTIVE: Vital Signs: Blood pressure 141/45, pulse 101, respirations 24, temperature 98 degrees, saturation 100% on 4 L. General Appearance: Morbidly obese white female in no acute distress. HEENT: Anicteric. Clear conjunctivae. Neck: Supple. No JVD. No bruit. Cardiovascular: Mildly tachycardic, but otherwise no issue. Pulmonary: Mild crackle at the bases, but otherwise clear. Decreased air movement bilaterally. GI: Soft, nontender, nondistended. Normoactive bowel sounds. Musculoskeletal: No clubbing, cyanosis, or edema. LABORATORY: White count 5.49, hemoglobin 9.6, hematocrit of 32.7, platelets 52,000. Sodium 142, potassium 4, chloride 95, bicarb 37, BUN 12, creatinine 0.9, glucose of 161. IMAGING: Ultrasound of the abdomen showed a fatty liver, but otherwise, no splenomegaly. ASSESSMENT AND PLAN: This is a 70-year-old white female admitted to the hospital for acute exacerbation of her diastolic heart failure and acute on chronic obstructive pulmonary disease exacerbation. 1. Acute diastolic heart failure. We will continue diuresis. Cardiology is following. We will increase her Lasix upon discharge. We will give her 1 more day of IV Lasix and will plan to discharge the patient to rehab tomorrow. 2. Chronic obstructive pulmonary disease exacerbation. We will continue Daliresp per Pulmonology and antibiotics for now. The patient will finish up her antibiotics today, and we will plan to discharge the patient tomorrow. 3. Diabetes type 2. We will continue sliding scale insulin. 4. Hyperlipidemia. We will continue Lipitor. CODE STATUS: The patient is a full code.
[2016-04-07] MEDS: LIPITOR PO SCH (22:36)
[2016-04-07] MEDS: NEURONTIN PO SCH (22:36)
[2016-04-07] MEDS: TOPAMAX PO SCH (22:36)
[2016-04-07] MEDS: MIRAPEX PO SCH (22:37)
[2016-04-08] MEDS: LASIX IV SCH ×2 (02:51→12:05)
[2016-04-08] MEDS: DUONEB (A & A) INH SCH ×4 (03:50→15:23)
[2016-04-08] MEDS: ZOFRAN IV PRN ×3 (05:01→12:54)
[2016-04-08] MEDS: ZOSYN 3.375 GM/NS 50 ML IV SCH ×2 (05:01→12:06)
[2016-04-08 05:11] LABS: ALLEN TEST YES; BE 13.9 mmoll (-3.0-3.0); BLOOD TYPE ARTERIAL; DRAW SITE R RADIAL; PO2(98.6) 118 mmHg (60-100); SAMPLE BLOOD; pH(98.6) 7.43 (7.35-7.45)
[2016-04-08 05:13] LABS: MODALITY BI PAP; PCO2(98.6) 62 mmHg (35-45)
[2016-04-08] MEDS: HUMALOG SUBQ SCH ×2 (06:21→10:52)
[2016-04-08 07:52] LABS: MANUAL DIFF NEEDED? NO
[2016-04-08 07:57] LABS: AGAP 9; BUN 11 mg/dL (8-22); CALCIUM 9.2 mg/dL (8.8-10.2); CHLORIDE 94 mmol/L (98-107); COSMO 278; POTASSIUM 3.7 mmol/L (3.5-5.1); SODIUM 138 mmol/L (136-145); TCO2 35 mmol/L (25-35)
[2016-04-08] MEDS: NORCO-5 PO PRN (08:21)
[2016-04-08] MEDS: FOLIC ACID PO SCH (08:33)
[2016-04-08] MEDS: CYMBALTA PO SCH (08:33)
[2016-04-08] MEDS: MIRALAX PO SCH (08:33)
[2016-04-08] MEDS: DALIRESP PO SCH (08:33)
[2016-04-08] MEDS: PEPCID PO SCH (08:34)
[2016-04-08] MEDS: SYNTHROID PO SCH (08:34)
[2016-04-08] MEDS: VOLTAREN 1% GEL TOP SCH ×2 (08:34→12:06)
[2016-04-08 08:50] LABS: BASO% 0.2 % (0.0-0.8); EOS# 0.17 X1000 (0.0-0.7); EOS% 3.6 % (0.0-10.0); HEMATOCRIT 30.6 % (37.0-47.0); HEMOGLOBIN 9.4 g/dL (12.0-16.0); IMM GRAN# 0.02 X1000 (0.0-0.04); IMM GRAN% 0.4 % (0.0-0.5); LYMPH# 1.02 X1000 (1.2-3.4); LYMPH% 21.6 % (20.5-51.1); MCH 31.4 PG (27-31); MCHC 30.7 g/dL (33-37); MCV 102.3 FL (81-99); MONO# 0.65 X1000 (0.11-0.59); MONO% 13.7 % (1.7-9.3); MPV 8.2 FL (7.4-10.4); NEUT% 60.5 % (42.2-75.2); PLT 57 X1000 (130-400); RBC 2.99 XMIL (4.2-5.4)
[2016-04-08] MEDS: MYCOSTATIN POWDER TOP SCH (09:55)
[2016-04-08 11:42] VITALS: BP 124/66
[2016-04-08] MEDS: TYLENOL PO PRN (12:54)
--- NOTE | 2016-04-08 12:57 | DISCHARGE SUMMARY ---
ADMISSION DATE: 03/31/2016 DISCHARGE DATE: CONSULTATIONS: 1. Estuardo Tracy MD - Cardiology. 2. Kathrin Marinelli MD - Pulmonology. 3. Ike Hooker MD - Hematology/Oncology. PROCEDURES: 1. Echocardiogram. Showed an ejection fraction of greater than 55%. 2. Cervical spine CT showed multilevel degenerative disk disease, as described. It appeared to be most significant through C5 through C6, and C6 through C7; however, the cervical spine appears to be stable. 3. Abdominal ultrasound showed fatty liver, slightly distended gallbladder, without any other abnormalities visible. 4. The initial chest x-ray showed pulmonary edema. Last chest x-ray performed on 04/04/2016 showed increased lung volumes with increase in bibasilar atelectasis. DISCHARGE DIAGNOSES: 1. Acute diastolic heart failure. The patient diuresed throughout her admission with IV. Her p.o. Lasix will be increased to 60 mg p.o. b.i.d. Stable. The patient will be discharged to long-term care today. 2. Chronic obstructive pulmonary disease exacerbation. Stable. Follow up pulmonology. Continue Daliresp per pulmonology. The patient finished a full course of IV antibiotics. 3. Diabetes mellitus type 2. Continue with medications. 4. Hyperlipidemia. Continue Lipitor. 5. Thrombocytopenia, chronic. Abdominal ultrasound did not reveal any splenomegaly. No signs of bleeding. 6. Acute hypercapnic respiratory failure, improved. 7. Morbid obesity, aware. The patient has been counseled many times about diet and exercise. 8. Hypothyroidism. Continue Synthroid. 9. Obstructive sleep apnea, aware. 10. Situational depression. Continue Cymbalta. 11. Restless legs syndrome. Continue Mirapex. 12. Constipation, resolved. Continue her home MiraLAX. Ms. Peck is a 70-year-old, morbidly obese, female, well known to our service. She has had several admissions within the last 3 months for diastolic heart failure. She also carries a past medical history of chronic hypercapnic respiratory failure, chronic obstructive pulmonary disease, obstructive sleep apnea, narcolepsy, diabetes mellitus type 2, chronic pain syndrome, mitral valve prolapse, chronic diastolic heart failure, hypertension, and Crohn disease. The patient presented to the emergency department on 03/31/2016 with complaints of sudden onset of chest pain with increasing shortness of breath. In the emergency department she was found have an elevated pro-BNP. Blood glasses did reveal pCO2 of 83, pO2 of 99, and pH of 7.37. She was admitted to the CICU for further evaluation. She was started on IV Lasix, as well as breathing treatments, aggressive pulmonary toilet, and consultations with pulmonology as well as cardiology. The patient was started on Daliresp per pulmonology. She was also on BiPAP at night. She was continued on IV Lasix throughout her stay, with the recommendation of increasing her Lasix to 60 or 80 p.o. b.i.d. at the time of discharge. The patient also underwent a full course of IV antibiotics. The patient also developed lower extremity cellulitis, for which she was started on Zosyn. Her daily weights, as well as I Os were monitored closely, as well as a healthy heart diet. Dr. Hooker did see the patient for continued thrombocytopenia, which he felt was more chronic in nature. There were no active signs of bleeding. Abdominal ultrasound did not show any splenomegaly. The patient had diuresed quite well during her stay. Cardiology felt that she was stable for discharge, as well as pulmonology. Cardiology would like to increase her p.o. Lasix and pulmonology would like to continue her home breathing treatments and added Daliresp. Palliative care also spoke with the patient about her many comorbidities. She stated she was planned to discharge to rehab and transitioned to long-term care. She has an advanced directive, as well as power of trademark attorney, which is her sister, and her advanced directive states that she would want all aggressive measures if needed. The patient is appropriate for discharge home, back to rehab today. DISCHARGE EXAMINATION: Vital signs: Temperature is 98.2 degrees, heart rate 103, respirations 20, blood pressure is 134/49, O2 is 99%. DISCHARGE DIET: Healthy heart. DISCHARGE MEDICATIONS: As per Dr. Kee. Please see MAR. FOLLOW-UP: The patient is being discharged to rehab and will transition to detention care. She will need to follow up with her primary care physician, Dr. Idris Hanna in 7-10 days. She will need to follow up with Dr. Marinelli on 04/21/[address] Estuardo Tracy within the month. The patient to return to the ED for any worsening of symptoms. DISCHARGE TIME: Greater than 30 minutes. Dictated by LYNN Blum for Martin Garcia MD Addendum: I personally evaluated and examined the patient in conjunction to the [employer] and agreed with her disposition. ALETA
== END 2016-04-08 16:02 | DRG 291 ==
LOC: P.ED 08:37 → P.MEDSURG 12:57 → 3S 14:29 → 3N 04-06 13:33
PROVIDERS: ATTEND Internal Medicine
DX: I11.0 Hypertensive heart disease with heart failure (principal); J96.22 Acute and chronic respiratory failure with hypercapnia; J96.21 Acute and chronic respiratory failure with hypoxia; N17.9 Acute kidney failure, unspecified; K50.90 Crohn's disease, unspecified, without complications; J44.1 Chronic obstructive pulmonary disease with (acute) exacerbation; D69.6 Thrombocytopenia, unspecified; L03.116 Cellulitis of left lower limb; L03.115 Cellulitis of right lower limb; Z68.42 Body mass index [BMI] 45.0-49.9, adult; I50.33 Acute on chronic diastolic (congestive) heart failure; Z99.81 Dependence on supplemental oxygen; E66.01 Morbid (severe) obesity due to excess calories; E83.39 Other disorders of phosphorus metabolism; D73.1 Hypersplenism; I25.10 Atherosclerotic heart disease of native coronary artery without angina pectoris; I34.1 Nonrheumatic mitral (valve) prolapse; E11.9 Type 2 diabetes mellitus without complications; E03.9 Hypothyroidism, unspecified; E78.5 Hyperlipidemia, unspecified; K21.9 Gastro-esophageal reflux disease without esophagitis; G47.419 Narcolepsy without cataplexy; G25.81 Restless legs syndrome; G47.33 Obstructive sleep apnea (adult) (pediatric); K59.00 Constipation, unspecified; G89.4 Chronic pain syndrome; F41.9 Anxiety disorder, unspecified; F43.21 Adjustment disorder with depressed mood; Z79.899 Other long term (current) drug therapy; Z79.84 Long term (current) use of oral hypoglycemic drugs; Z79.4 Long term (current) use of insulin; Z82.49 Family history of ischemic heart disease and other diseases of the circulatory system; Z83.3 Family history of diabetes mellitus
CPT/HCPCS: 36415; 51702; 71010; 72125; 76700; 80048; 80053; 80069; 82550; 82607; 82746; 82805; 82948; 83036; 83735; 83880; 84484; 85025; 85027; 85379; 85610; 85730; 93005; 93306; 94640; 94660; 94761; 96374; C9113; J1650; J1815; J1940; J2310; J2405; J2543; J3475; J3480; 97110-GP; 97116-GP; 97530-GP; S0164

== ENCOUNTER 2016-06-10 21:27 | Inpatient (IN) ==
[2016-06-10] MEDS ORDERED: DUONEB (A & A) INH ONE (21:41)
[2016-06-10] MEDS ORDERED: ASPIRIN PO STA (22:04)
[2016-06-10 22:46] LABS: BASO% 0.1 % (0.0-0.8); EOS# 0.16 X1000 (0.0-0.7); HEMATOCRIT 29.6 % (37.0-47.0); HEMOGLOBIN 8.7 g/dL (12.0-16.0); IMM GRAN# 0.06 X1000 (0.0-0.04); IMM GRAN% 0.7 % (0.0-0.5); LYMPH# 1.13 X1000 (1.2-3.4); LYMPH% 14.1 % (20.5-51.1); MANUAL DIFF NEEDED? NO; MCH 31.5 PG (27-31); MCHC 29.4 g/dL (33-37); MCV 107.2 FL (81-99); MONO% 12.5 % (1.7-9.3); NEUT% 70.6 % (42.2-75.2); PLT 83 X1000 (130-400); RBC 2.76 XMIL (4.2-5.4)
[2016-06-10 23:09] LABS: ALBUMIN 3.6 g/dL (3.5-5.0); CALCIUM 9.3 mg/dL (8.8-10.2); MAGNESIUM 2.4 mg/dL (1.5-2.7); TOTAL BILIRUBIN 0.25 mg/dL (0.20-1.00); TOTAL PROTEIN 6.5 g/dL (6.3-8.3)
[2016-06-10 23:14] LABS: PROTIME 10.5 Seconds (9.2-11.7); PTT 22.3 Seconds (22.0-36.0)
[2016-06-10] MEDS ORDERED: LASIX IV ONE (23:48)
--- NOTE | 2016-06-11 00:27 | PROVIDER DOCUMENTATION ---
This chart was entered by Kalie Carroll Scribe, acting as scribe for João Issa MD. HPI-Respiratory General - General Chief Complaint: Shortness of Breath Stated Complaint: sob Time Seen by Provider: 06/10/16 21:42 Source: patient Allergies/Adverse Reactions: Patient Allergies Allergy/AdvReac Type Severity Reaction Status Date / Time Sulfa (Sulfonamide Allergy Intermediate RASH Verified 06/10/16 21:39 Antibiotics) [Sulfa(Sulfonamide Antibiotics)] spironolactone Allergy hyperkalemi Verified 06/10/16 21:39 a Home Medications: Home Medication List Medication Instructions Recorded Confirmed Last Taken Type Topiramate [Topamax] 25 mg PO QHS 01/31/12 06/10/16 06/07/16 21:00 History Albuterol 2.5MG/Ipratrop 0.5MG 3 ml INH Q4-6H PRN PRN #30 neb 04/16/15 06/10/16 06/08/16 09:00 Rx [Duoneb (A & A)] Amlodipine [Norvasc] 5 mg PO DAILY #30 tablet 08/06/15 06/10/16 04/30/16 Rx Insulin Detemir [Levemir] 40 unit SUBQ BID #1 insuln.pen 08/06/15 06/10/1606/08 09:00 Rx Levothyroxine [Synthroid] 75 microgm PO DAILY #30 tablet 09/19/15 06/10/1606/08 05:00 Rx Budesonide/Formoterol Fumarate 1 puff INH BID 12/04/15 06/10/16 06/08/16 09:00 History [Symbicort 160-4.5 Mcg Inhaler] Guaifenesin [Mucinex] 600 mg PO BID 12/04/15 06/10/16 06/08/16 09:00 History Folic Acid 1 mg PO DAILY 12/18/15 06/10/16 06/08/16 08:00 History Gabapentin [Neurontin] 300 mg PO QHS 01/07/16 06/10/16 06/07/16 21:00 History Omeprazole [Prilosec] 40 mg PO DAILY 01/07/16 06/10/16 06/08/16 05:00 History Metformin E.r. [Glucophage Xr] 1,000 mg PO BID 01/09/16 06/10/16 06/08/16 09:00 History Sitagliptin Phosphate [Januvia] 100 mg PO DAILY 01/09/16 06/10/16 06/08/16 10: 00 History Atorvastatin Calcium [Lipitor] 40 mg PO DAILY 01/17/16 06/10/16 06/07/16 21:00 History Metoprolol Succinate E.r. [Toprol 25 mg PO DAILY #0 tablet 01/28/16 06/10/1602/24 09:00 Rx Xl] Pramipexole [Mirapex] 0.75 mg PO QHS #30 tablet 01/28/16 06/10/16 06/07/16 21: 00 Rx Nystatin Powder [Mycostatin Powder] 1 applicatn TOP BID 04/01/16 06/10/16 09:00 History Diclofenac 1% Gel [Voltaren 1% Gel] 4 gm TOP 4XDAY #0 tube 04/08/16 06/10/1602/24 09:00 Rx Flavoxate [Urispas] 100 mg PO Q6H PRN PRN #30 tablet 04/08/16 06/10/16 Unknown Rx Duloxetine [Cymbalta] 40 mg PO QAM 04/30/16 06/10/16 06/08/16 09:00 History Flavoxate [Urispas] 100 mg PO PRN PRN 04/30/16 06/10/16 Unknown History Melatonin/Pyridoxine [Melatonin 3 1 each PO HS 04/30/16 06/10/16 06/07/16 21:00 History mg Tablet] Metoclopramide HCl [Reglan] 5 mg PO TID 04/30/16 06/10/16 06/08/16 11:00 History Ondansetron HCl [Zofran] 4 mg PO Q6H PRN PRN 04/30/16 06/10/16 04/10/16 History Potassium Chloride 10 meq PO DAILY 04/30/16 06/10/16 06/08/16 09:00 History Alprazolam [Xanax] 0.25 mg PO Q6H PRN PRN #30 tablet 05/06/16 06/10/16 06/08/16 10:00 Rx Hydrocodone/Acetaminophen [Sumner 1 - 2 each PO Q4H #24 tab 05/06/16 06/10/1602/24 13:00 Rx 5-325 Tablet] Torsemide [Demadex] 40 mg PO BID #60 tablet 05/06/16 06/10/16 06/08/16 09:00 Rx Flavoxate HCl 100 mg PO Q6H PRN PRN 06/08/16 06/10/16 Unknown History Gabapentin 100 mg PO DIRECTED 06/08/16 06/10/16 06/08/16 09:00 History Insulin Aspart [Novolog] 0 unit SQ DIRECTED PRN PRN 06/08/16 06/10/16 06:00 History Lactulose 30 ml PO DAILY 06/08/16 06/10/16 06/08/16 09:00 History Losartan Potassium 50 mg PO DAILY 06/08/16 06/10/16 06/08/16 09:00 History Metolazone 5 mg PO DIRECTED 06/08/16 06/10/16 06/08/16 08:00 History Multivits,Ca,Minerals/Iron/FA 1 each PO DAILY 06/08/16 06/10/16 06/08/16 08:00 History [Thera-M Tablet] - History of Present Illness-Resp Nature of Presenting Problem: 70 Y/O F presents to ED with SOB. Family states that [facility] called her and stated Pt O2 was staying no higher than 50. Pt c/o of poor appetite and dizziness. Pt was just released from hospital on Wednesday. Severity in ED: reports: moderate Onset/Duration: reports: this evening Timing: reports: still present, improving Cough Quality/Degree: reports: no cough Current Respiratory Medication Therapy: Initiated see nurses note Associated Symptoms: reports: dizziness, shortness of breath. denies: sweaty, wheezing Similar Symptoms Previously?: Yes Recently seen or treated by another doctor?: Yes Review of Systems - Adult - REVIEW OF SYSTEMS - ADULT Constitutional: denies: chills, fever Eyes: reports: no symptoms reported Ears, Nose, Mouth & Throat: reports: no symptoms reported Cardiovascular: denies: chest pain Respiratory: reports: shortness of breath. denies: cough Gastrointestinal: reports: poor appetite. denies: abdominal pain, diarrhea, nausea, vomiting Genitourinary: reports: no symptoms reported Musculoskeletal: reports: no symptoms reported Integumentary: reports: no symptoms reported Neurological: reports: dizziness/vertigo. denies: loss of balance, seizure, slurred speech Psychiatric: reports: no symptoms reported Endocrine: reports: no symptoms reported Hematologic/Lymphatic: reports: no symptoms reported Allergic/Immunologic: reports: no symptoms reported All Other Systems: Reviewed and Negative Past History - Adult - PAST MEDICAL HISTORY-ADULT Review of Records: reports: Old Records Reviewed, Nursing Assessment Review, Medications Reviewed, Social history reviewed & non-contributory. Major Childhood Illnesses: reports: denies history Cardiovascular: reports: A-Fib, CAD, CHF, HTN, heart valve problem (MVP), hyperlipidemia Respiratory: reports: COPD, sleep apnea Gastrointestinal: reports: GERD Obstetrical/Gynecological: reports: denies history Genitourinary: reports: denies history Musculoskeletal: reports: arthritis, chronic pain, fibromyalgia Neurological: reports: other (neuropathy) Psychiatric: reports: anxiety, depression Endocrine/Immune: reports: Diabetes, thyroid disorder Other Conditions: reports: denies history - PRIOR SURGERIES/PROCEDURES Surgical/Procedure History: reports: breast, other (arthroscopy ) - PRIOR HOSPITALIZATIONS Prior Hospitalizations: reports: for similar symptoms - IMMUNIZATION STATUS Childhood Immunizations: See Nurse Assessment Flu Vaccine: See Nurse Assessment - FAMILY HISTORY Family History: reviewed, not pertinent - SOCIAL HISTORY Smoking: non-smoker Substance Use: none/never Alcohol Use Frequency: never Living Situation: care facility Physical Exam-General - PHYSICAL EXAM-ADULT Initial Vital Signs Reviewed: Yes - CONSTITUTIONAL General Appearance: alert, no apparent distress - EYES Eyes: PERRL/EOMI, pink conjunctivae - HEAD, EARS, NOSE, MOUTH & THROAT HENMT: normocephalic/atraumatic, moist mucous membranes, normal ENT inspection, TMs normal, pharynx normal - NECK Neck: non-tender, full range of motion, supple, normal inspection - RESPIRATORY Respiratory: chest non-tender, lungs clear, normal breath sounds - CARDIOVASCULAR Cardiovascular: normal peripheral pulses, regular rate, rhythm - GASTROINTESTINAL (ABDOMEN) Abdominal Exam: normal bowel sounds, non tender, soft - LYMPHATIC Lymphatic: no adenopathy - MUSCULOSKELETAL Back Exam: normal inspection, no CVA tenderness, no vertebral tenderness Extremity: normal range of motion - SKIN Integumentary: normal color, normal turgor, warm/dry - NEUROLOGIC Neurologic: protection manager II-XII nml as tested - PSYCHIATRIC Psych/Mental Status: normal mood/affect, normal thought content, normal thought process, oriented x 3 Progress - PLAN OF CARE/RESULTS Progress/Plan/Lab Results: Vital Signs - 8 hr 06/10/16 21:31 06/10/16 22:55 Temperature 98.3 F Pulse Rate 95 H 95 H Respiratory Rate 25 H 22 Blood Pressure 113/54 O2 Sat by Pulse Oximetry 90 L 90 L Laboratory Results - last 24 hr 06/10/16 06/10/16 06/10/16 22:00 22:00 22:36 WBC 8.01 RBC 2.76 L Hgb 8.7 L Hct 29.6 L MCV 107.2 H MCH 31.5 H MCHC 29.4 L RDW Std Deviation 18.1 H Plt Count 83 L MPV 10.0 Immature Gran % (Auto) 0.7 H Neut % (Auto) 70.6 Lymph % (Auto) 14.1 L Cross % (Auto) 12.5 H Eos % (Auto) 2.0 Baso % (Auto) 0.1 Immature Gran # (Auto) 0.06 H Neut # (Auto) 5.65 Lymph # (Auto) 1.13 L Cross # (Auto) 1.00 H Eos # (Auto) 0.16 Baso # (Auto) 0.01 PT 10.5 INR 1.00 PTT (Actin FS) 22.3 Sodium 143 Potassium 5.0 Chloride 91 L Carbon Dioxide 40 H Anion Gap 12 BUN 84 H Creatinine 1.3 H Estimated GFR/1.73 m2 41 BUN/Creatinine Ratio 65 Glucose 83 Calculated Osmolality 310 Calcium 9.3 Magnesium 2.4 Total Bilirubin 0.25 AST 14 ALT 12 Alkaline Phosphatase 111 H Creatine Kinase 18 L Troponin T [id number] Pept Total Protein 6.5 Albumin 3.6 Globulin 2.9 Albumin/Globulin Ratio 1.2 06/10/16 06/10/16 22:36 22:36 WBC RBC Hgb Hct MCV MCH MCHC RDW Std Deviation Plt Count MPV Immature Gran % (Auto) Neut % (Auto) Lymph % (Auto) Cross % (Auto) Eos % (Auto) Baso % (Auto) Immature Gran # (Auto) Neut # (Auto) Lymph # (Auto) Cross # (Auto) Eos # (Auto) Baso # (Auto) PT INR PTT (Actin FS) Sodium Potassium Chloride Carbon Dioxide Anion Gap BUN Creatinine Estimated GFR/1.73 m2 BUN/Creatinine Ratio Glucose Calculated Osmolality Calcium Magnesium Total Bilirubin AST ALT Alkaline Phosphatase Creatine Kinase Troponin T 0.021 Lmr-G-Rxmetevubuj Pept 1863 H Total Protein Albumin Globulin Albumin/Globulin Ratio Orders Category Date Time Status Cardiac Monitoring DIRECTED Care 06/10/16 22:04 Active Oxygen Therapy- ED Nursing DIRECTED Care 06/10/16 21:41 Active Oxygen Therapy- ED Nursing DIRECTED Care 06/10/16 22:04 Active Saline Loc DIRECTED Care 06/10/16 21:41 Active Saline Loc NOW Care 06/10/16 22:04 Active CHEST-1 VIEW [RAD] Stat Exams 06/10/16 22:05 Taken CBC WITH ELECTRONIC DIFF [HEME] Stat Lab 06/10/16 22:00 Completed CK PROFILE [SP CHEM] Stat Lab 06/10/16 22:36 Completed COMPREHENSIVE METABOLIC PANEL [CHEM] Stat Lab 06/10/16 22:36 Completed MAGNESIUM [CHEM] Stat Lab 06/10/16 22:36 Completed PRO B-NATRIURETIC PEPTIDE Stat Lab 06/10/16 22:36 Completed PROTIME WITH INR [COAG] Stat Lab 06/10/16 22:00 Completed PTT [COAG] Stat Lab 06/10/16 22:00 Completed TROPONIN T Stat Lab 06/10/16 22:36 Completed Albuterol 2.5MG/Ipratrop 0.5MG [Duoneb (A & A)] Med 06/10/16 21:41 Discontinued 3 ml INH NOW ONE Aspirin Med 06/10/16 22:04 Discontinued 325 mg PO STAT STA Furosemide [Lasix] Med 06/10/16 23:48 Discontinued 80 mg IV NOW ONE Aerosol Treatments Routine Oth 06/10/16 21:42 Completed Aerosol Treatments Stat Oth 06/10/16 21:41 Completed Aerosol Treatments Stat Oth 06/10/16 21:42 Completed Pulse Oximetry Stat Oth 06/10/16 21:41 Completed EKG [EKG] Stat Ther 06/10/16 22:04 Ordered Result Diagrams: 06/10/16 22:00 06/10/16 22:36 - EKG 1 Time of EKG reading by physician:: 21:39 EKG Read and Signed by:: João Issa EKG Interpretation (*Must complete 3 of following elements*): Normal Rate: 94 Rhythm: NSR Comments: Abnormal ECG - CONSULTS/PCP/HOSPITALIST Notification #1 *Consult/PCP/Hospitalist*: Time Discussed: 00:25 Reason/Comments: Admit Consult Disposition: Admit (Admit Accepted) Departure - Departure Time of Disposition Decision: 00:26 DIAGNOSIS: CHF exacerbation, CHF (congestive heart failure) Disposition: ADMITTED INPATIENT 09 Certified Medical Emergency: Emergent Condition: Stable Referrals and Follow-Ups: Roberto Cherry MD [Primary Care Provider] - - Critical Care Note This patient required my direct & personal management of CC.: Yes Attestation - Physician/ RUDY Attestation Patient care was provided by Advanced Practice Provider:: Yes Advanced Practice Provider documentation review:: The Mid-level provider documentation, treatment plan and medical decision making was reviewed by the physician who agrees with all treatment and medical decision making by the MLP. The physician spent face to face time with patient:: Yes Advanced Practice Provider documentation review:: The physician spent face to face time with this patient and agrees with all MLP documentation, treatment, and medical decision making by the MLP. See provider notes for further information. This chart was documented by the indicated scribe, (Kalie Carroll Scribe) and accurately reflects the services I performed and decisions made by , João Issa MD, as attested by the provider's signature.
[2016-06-11] MEDS ORDERED: TYLENOL PO PRN (04:48)
[2016-06-11] MEDS ORDERED: URISPAS PO PRN (04:48)
--- NOTE | 2016-06-11 06:17 | EKG Report ---
Test Performed on : 06/10/2016 9:39:22 PM Test Reason : Chest Pain Blood Pressure : / mmHG Vent. Rate : 094 BPM Atrial Rate : 094 BPM P-R Int : 128 ms QRS Dur : 076 ms QT Int : 340 ms P-R-T Axes : 040 015 -46 degrees QTc Int : 425 ms Normal sinus rhythm. Nonspecific ST and T wave abnormality Abnormal ECG When compared with ECG of 30-APR-2016 21:17, CT interval has increased Inverted T waves have replaced nonspecific T wave abnormality in Lateral leads Unconfirmed Result
[2016-06-11] MEDS: HUMALOG SUBQ SCH ×4 (06:20→22:16)
[2016-06-11] MEDS: NORCO-5 PO PRN ×4 (06:21→23:31)
[2016-06-11] MEDS: PRILOSEC PO SCH (06:21)
[2016-06-11] MEDS: SYNTHROID PO SCH (06:21)
[2016-06-11 06:37] LABS: BASO% 0.1 % (0.0-0.8); EOS# 0.13 X1000 (0.0-0.7); EOS% 1.8 % (0.0-10.0); HEMATOCRIT 29.1 % (37.0-47.0); HEMOGLOBIN 8.5 g/dL (12.0-16.0); IMM GRAN# 0.03 X1000 (0.0-0.04); IMM GRAN% 0.4 % (0.0-0.5); LYMPH# 1.01 X1000 (1.2-3.4); LYMPH% 14.3 % (20.5-51.1); MANUAL DIFF NEEDED? NO; MCH 31.8 PG (27-31); MCHC 29.2 g/dL (33-37); MONO# 1.05 X1000 (0.11-0.59); MONO% 14.9 % (1.7-9.3); MPV 9.8 FL (7.4-10.4); NEUT% 68.5 % (42.2-75.2); PLT 82 X1000 (130-400); RBC 2.67 XMIL (4.2-5.4)
[2016-06-11 06:57] LABS: IRON SATURATION 12 %; TIBC 311 ug/dL; TOTAL IRON 38 ug/dL (49-151); UNBOUND IRON 273 ug/dL (112-346)
[2016-06-11 07:07] LABS: CALCIUM 9.3 mg/dL (8.8-10.2); MAGNESIUM 2.5 mg/dL (1.5-2.7); POTASSIUM 4.6 mmol/L (3.5-5.1)
[2016-06-11 07:36] LABS: FERRITIN 140 ng/mL (13-150)
[2016-06-11] MEDS: THERA M PLUS PO SCH (08:16)
[2016-06-11] MEDS: FOLIC ACID PO SCH (08:16)
[2016-06-11] MEDS: CYMBALTA PO SCH (08:16)
[2016-06-11] MEDS: MUCINEX PO SCH ×2 (08:16→22:12)
[2016-06-11] MEDS: LACTULOSE PO SCH (08:17)
[2016-06-11] MEDS: VOLTAREN 1% GEL TOP SCH ×4 (08:17→22:16)
[2016-06-11] MEDS: LASIX IV SCH ×2 (08:17→22:15)
[2016-06-11] MEDS: MYCOSTATIN POWDER TOP SCH ×2 (08:17→22:14)
[2016-06-11] MEDS: LEVEMIR SUBQ SCH ×2 (08:21→22:14)
[2016-06-11] MEDS: COZAAR PO SCH (08:22)
[2016-06-11] MEDS: TOPROL XL PO SCH (08:22)
--- NOTE | 2016-06-11 08:41 | Diag Imaging Result Document ---
PROCEDURE NAME: CHEST-1 VIEW - 06/10/2016 SINGLE FRONTAL RADIOGRAPH OF THE CHEST: COMPARISON: 06/08/2016. FINDINGS: There are increased interstitial markings suggesting mild pulmonary edema. There has been modest improvement as compared to the previous study. Central vasculature is still mildly prominent indicating pulmonary venous congestion. No new consolidation is identified. Cardiomegaly is stable. IMPRESSION: Modest improvement of interstitial edema.
[2016-06-11] MEDS ORDERED: PROTEIN HYDROLYSATE MILK PO SCH (09:00)
--- NOTE | 2016-06-11 09:50 | HISTORY AND PHYSICAL ---
PRIMARY CARE PROVIDER: Dr. Cherry. RADIO MAINTAINER: Dr. Irby. CHIEF COMPLAINT: Shortness of breath and hypoxia. HISTORY OF PRESENT ILLNESS: Ms. Peck is a 70-year-old female who is a resident at [facility] in [place]. She has a past medical history of chronic diastolic heart failure, type 2 diabetes, sleep apnea, chronic COPD, currently on home oxygen with nasal cannula at 4 L, narcolepsy, mitral valve prolapse, Crohn's disease, hypertension, and hyperlipidemia. The patient was just recently discharged from the hospital on 05/06/2016 for a CHF exacerbation. She was also seen in the ER on 06/08/2016 for elevated BUN of 78. She was diagnosed with hyperkalemia, and was instructed to stop taking her potassium chloride. The patient states that this morning, she began having worsening weakness, fatigue, and shortness of breath, as well as some dizziness. The patient also complained of some nausea, lower abdominal pain, and low back pain. She also reports some dysuria as well. She also reports that she has had increased swelling in her bilateral lower extremities. She denies any fever, body aches, or chills. I would also like to add that she did also report a nonproductive, dry cough. She denies any headache, vomiting, constipation, bloody or black tarry stools. She report 1 episode of diarrhea today. The patient also did report some chest pain during her previous episode of shortness of breath prior to her arrival, but denies any chest pain at this time. She reported that her chest pain was dull in nature, was left-sided chest pain just left of her sternum, and was nonradiating. Upon evaluation in the ER, the patient did have initial vital signs of temperature 98.3 degrees, heart rate 95, respirations 25, blood pressure 113/54, and oxygen saturation of 90% on nasal cannula at 4 L. Reportedly, prior to the patient's arrival, assisted staff did state that her oxygen levels were low into the 50s. Upon evaluation in the ER, the patient was found to have findings suggestive of congestive heart failure exacerbation with elevated proBNP of 1863, as well as increased pulmonary vascular congestion on her chest x-ray, as well as increased bilateral lower extremity edema and crackles in lung bases upon auscultation. The patient was given a dose of 80 mg of Lasix in the ER. At this time, her respiratory status has improved. She is resting in the ER stretcher comfortably, and is in no acute respiratory distress at this time, and is maintaining oxygen saturations of 94% to 97% nasal cannula at 4 L. REVIEW OF SYSTEMS: A 12-point review of systems was conducted with the patient. All were negative, except for pertinent positives mentioned in the above HPI. PAST MEDICAL HISTORY: 1. Chronic diastolic heart failure. 2. Diabetes mellitus type 2. 3. Crohn's disease. 4. Mitral valve prolapse. 5. Hypertension. 6. Hyperlipidemia. 7. COPD, currently on home oxygen with nasal cannula at 4 L. 8. Narcolepsy. 9. Obstructive sleep apnea. 10. Chronic macrocytic anemia. 11. Chronic thrombocytopenia. PAST SURGICAL HISTORY: 1. Breast reduction. 2. Left arthroscopic knee surgery. 3. Left thigh debridement secondary to MRSA infection. SOCIAL HISTORY: The patient is currently a resident at [facility] in [place]. The patient reports that she did occasionally smoke cigarettes socially, though denies any long-term tobacco abuse. She denies any alcohol or illicit drug use as well. The patient did report that she was around heavy secondhand smoke. FAMILY HISTORY: Positive for her father having a history of colon cancer with metastasis to the liver. There is also a history of diabetes mellitus as well. LABORATORY AND DIAGNOSTIC DATA: White blood cell count 8.01, hemoglobin 8.7, hematocrit 29.6, platelet count is 83,000. PT 10.5, INR 1.00, PTT 22.3. Sodium 143, potassium 5 , chloride 91, bicarb 40, BUN 84, creatinine 1.3, with an estimated GFR of 41, glucose 83, calcium 9.3. Magnesium 2.4. Total bilirubin is 0.25, AST 14, ALT 12, alkaline phosphatase is 111. CK 18, troponin is 0.021. ProBNP was 1863. EKG showed normal sinus rhythm at a rate of 94 with a QTc of 425. Chest x-ray shows increased pulmonary vascular congestion suggestive for findings of CHF exacerbation. PHYSICAL EXAMINATION: VITAL SIGNS: Temperature 97.9 degrees, heart rate 86, respirations 22, blood pressure 117/37, oxygen saturation is 94% nasal cannula at 4 L. GENERAL: Ms. Peck is a 70-year-old female who is resting comfortably in the ER stretcher. She was in no acute distress. She was awake, alert, and able to answer all questions appropriately. HEENT: Head is atraumatic, normocephalic. Pupils are equal, round, reactive to light at 3 mm bilaterally and brisk. Conjunctivae were slightly pale. Oral mucosa is moist. Oropharynx clear. NECK: Supple. Trachea midline. No carotid bruits noted on auscultation. No JVD noted. CARDIOVASCULAR: The patient has normal S1, S2. She does have a systolic murmur noted. No other gallops or rubs present. She has a regular heart rate and rhythm. PULMONARY: The patient has symmetrical chest expansion bilaterally. Lung sounds were clear to auscultation in bilateral upper sterling, though she did have crackles present in bilateral lower sterling on auscultation. ABDOMEN: Soft, nontender, nondistended. The patient does have a protuberant abdomen noted. Bowel sounds were present in all 4 quadrants and were normoactive. EXTREMITIES: The patient does have edema noted in bilateral lower extremities from knee to ankle bilaterally. This is 1+ pitting edema, though from ankle down in bilateral lower extremities, there is 2+ pitting edema. Both motor and sensory were intact in all extremities. Pedal pulses were 3+ bilaterally. INTEGUMENTARY: The patient's skin is pink, warm, dry, and intact. No lesions or sores noted. NEUROLOGICAL: The patient is alert and oriented x3. Cranial nerves II through XII are grossly intact. ASSESSMENT AND PLAN: 1. Congestive heart failure exacerbation. For this, we will hold the patient's oral torsemide at this time, and place her on intravenous Lasix 40 mg intravenously every 12 hours. We have placed a Cardiology consult as well. The patient's last documented ejection fraction was 55% on 03/11/2016. We will also continue her metoprolol at 25 mg by mouth daily , as well as closely monitor her cardiovascular status closely. 2. Chronic obstructive pulmonary disease. We have ordered as needed DuoNeb treatments. Will continue the patient's oxygen therapy at 4 liters nasal cannula, and will continue to follow. 3. Hypertension. Will continue the patient's metoprolol as previously mentioned , as well as her Cozaar, and will continue to follow as well. 4. Hyperlipidemia. Will continue the patient's atorvastatin. 5. Acute Kidney Injury, this is of uncertain etiology at this time. We will avoid nephrotoxic medications, renally dose medications as necessary and will continue to follow. 6. Diabetes Mellitus Type II. Given her Acute Kidney Injury we will hold her metformin and januvia. We will continue her levemir 40 units SUBQ BID and place her on a low dose sliding scale lispro insulin and will continue to monitor. 7. Chronic macrocytic anemia. This appears to be stable based on the patient's previous laboratory results. We have placed an order for an anemia profile, and will await those results and continue to follow. 8. Chronic thrombocytopenia. The patient did previously have a consultation with Hematology on her last admission, for which Dr. Hooker stated that he thought this was likely secondary to inguinal/hypersplenism. At this time, her platelet levels appear to be stable. There are no signs of bleeding, though we will hold any anticoagulant use at this time and will continue to follow. 9. Hypothyroidism. Will continue the patient's Synthroid. 10. Sleep apnea. The patient does use a continuous positive airway pressure machine at night. We will continue this as well. We have instructed her to have a family member bring this from [facility], but if not, we can implement bilevel positive airway pressure with continuous positive airway pressure settings if necessary at night. The patient will be placed on the medical floor with telemetry. She will have vital signs every 4 hours. We will do strict intake and output, as well as daily weights. She will be on a diabetic diet. Deep venous thrombosis prophylaxis will be provided with sequential compression devices. The patient did report some dysuria, as well as lower abdominal pain, as well as back pain. We have placed an order for urinalysis to be collected, and are awaiting these results at this time, and will continue to follow. Further orders and recommendations pending hospital course, diagnostic studies, and physician evaluation. Dictated by LYNN Mcneill for Sina Watkins MD cc: MD ALETA Archer
[2016-06-11] MEDS ORDERED: LOVENOX 1 MG/KG SUBQ ONE (09:57)
[2016-06-11 10:27] LABS: BLOOD TYPE ARTERIAL; SAMPLE BLOOD; pH(98.6) 7.34 (7.35-7.45)
[2016-06-11 10:28] LABS: BE 17.3 mmoll (-3.0-3.0); METHB 1.1 % (0.0-1.5); PCO2(98.6) 87 mmHg (35-45); PO2(98.6) 83 mmHg (60-100); SAO2 96.9 % (95.0-100.0); THB 11.6 g/dL (11.5-17.4)
[2016-06-11 10:29] LABS: ALLEN TEST YES; DRAW SITE R RADIAL; MODALITY CANNULA; O2(CT) 15.3 mL/dL (15.0-23.0)
[2016-06-11] MEDS ORDERED: LOVENOX SUBQ ONE (10:30)
--- NOTE | 2016-06-11 10:52 | CONSULTATION ---
DATE OF CONSULTATION: 06/11/2016 HISTORY: This is a 70-year-old white female with past history of chronic heart failure of mixed etiology, morbid obesity, obstructive sleep apnea, COPD, likely restrictive pulmonary physiology related to morbid obesity, hypertension, hyperlipidemia, and advanced degenerative joint disease of the knees, who was admitted on transfer [facility] for further management of dyspnea and hypoxemia. She has also had some atypical chest pain. She has been started on intravenous diuretic therapy. She has had multiple admissions for congestive heart failure in the past of similar nature. She was here 1 month ago for exacerbation of congestive heart failure. Following diuresis, she went back to [facility]. She has been using CPAP, but her compliance is questionable. She has had increasing shortness of breath as well as some swelling. She also describes some sharp chest pain, which is worse with a deep breath. She was noted to have decreased oxygen, and was subsequently transferred here for further evaluation. She has had inconsistent tolerance of her CPAP in the past, and her sleep specialist is in the process of switching her to a more sophisticated BiPAP-type device. PAST MEDICAL HISTORY: 1. Chronic congestive heart failure, mixed etiology, predominantly cor pulmonale. Previous echocardiographic studies demonstrated normal left ventricular ejection fraction and dilated right ventricle. 2. Morbid obesity. 3. Significant obstructive sleep apnea. 4. COPD. 5. Chronic hypoxemia necessitating chronic oxygen therapy. 6. Hypertension. 7. Hyperlipidemia. 8. Crohn's disease. 9. Advanced degenerative joint disease of both knees. PAST SURGICAL HISTORY: Includes thigh debridement for MRSA infection, breast reduction surgery, and previous arthroscopic knee procedures. ALLERGIES: She is allergic or intolerant to sulfa and Aldactone. MEDICATIONS PRIOR TO ADMISSION: As listed. SOCIAL HISTORY: She does not smoke or use alcohol. She has currently been residing at a [facility]. FAMILY HISTORY: Negative for premature coronary disease. REVIEW OF SYSTEMS: Pulmonary: Noteworthy for dyspnea. There has been no significant cough. She has had some pleuritic chest pain. Constitutional: Negative. Gastrointestinal: Noteworthy for diminished appetite and some nausea. Remainder of review of systems is negative/noncontributory beyond history of present illness with 14 total systems reviewed. PHYSICAL EXAMINATION: General: This is a morbidly obese white female in no distress, on nasal cannula oxygen. She is somewhat drowsy. Vital Signs as recorded are stable. HEENT: Extraocular movements intact. Mucous membranes moist. Neck: Supple. There is significant jugular venous distention evident, visible to the angle of the jaw. There are no carotid bruits. Respiratory: Auscultation of the chest reveals diminished breath sounds at bases bilaterally. There are no rales appreciated. Cardiac: Distant heart sounds. Irregular rate and rhythm is present without appreciable murmur or gallop. Abdomen: Obese, nontender. Extremities: Demonstrate 1+ to 2+ pretibial edema. Neurologic: Reveals her to be alert and fully oriented. Speech is fluent. She moves all 4 extremities equally well. Skin: Warm and dry. Psychiatric: Reveals her mood to be appropriate. DIAGNOSTIC DATA: ECG demonstrates sinus rhythm and nonspecific ST-T wave abnormality. IMPRESSION: 1. Acute on chronic congestive heart failure of mixed etiology, with a major component of cor pulmonale related to significant obstructive sleep apnea, chronic obstructive pulmonary disease, and likely significant restrictive pulmonary physiology related to morbid obesity. 2. Atypical chest pain, pleuritic in nature, etiology not clear. 3. Significant obstructive sleep apnea with inconsistent tolerance of continuous positive airway pressure in the past. 4. Morbid obesity. 5. Chronic obstructive pulmonary disease. 6. Hypertension. 7. Hyperlipidemia. 8. Advanced degenerative disease of both knees. RECOMMENDATIONS: 1. Diurese with parenteral Lasix as you are doing. 2. BiPAP while in the hospital. 3. Given atypical chest pain, would give empiric dose of Lovenox 1 mg/kg subcu, check D-dimer, and check venous Doppler study of the lower extremities. She may require chest CT as well. cc: Lio Banda MD
[2016-06-11] MEDS: DUONEB (A & A) INH PRN ×4 (11:43→23:25)
[2016-06-11 11:47] LABS: URINE MICRO REVIEW NEEDED? NO; URINE SOURCE CLEAN CATCH
[2016-06-11 11:51] LABS: BILIRUBIN URINE NEGATIVE (NEGATIVE); BLOOD URINE TRACE (NEGATIVE); COLOR YELLOW; GLUCOSE URINE NEGATIVE (NEGATIVE); LEUKOCYTES URINE SMALL (NEGATIVE); NITRITE URINE NEGATIVE (NEGATIVE); PROTEIN URINE NEGATIVE (NEGATIVE); SP GRAVITY URINE 1.011; TURBIDITY URINE HAZY (CLEAR); UROBILINOGEN URINE NORMAL (NORMAL)
[2016-06-11 11:52] LABS: UR EPITHELIAL CELLS >10 /HPF (<10); URINE BACTERIA 3+ /HPF; URINE CULTURE NEEDED? YES; URINE WBC <10 /HPF (<10)
[2016-06-11] MEDS: SYMBICORT 160/4.5 MICROGM INHALER INH SCH ×2 (16:19→19:54)
[2016-06-11] MEDS ORDERED: AYR NASAL SPRAY NAS PRN (18:26)
[2016-06-11] MEDS: MIRAPEX PO SCH (22:07)
[2016-06-11] MEDS: LIPITOR PO SCH (22:08)
[2016-06-11] MEDS: NEURONTIN PO SCH (22:10)
[2016-06-11] MEDS: MELATONIN PO SCH (22:11)
[2016-06-11] MEDS: TOPAMAX PO SCH (22:12)
[2016-06-12] MEDS: DUONEB (A & A) INH PRN ×6 (03:20→23:06)
[2016-06-12 06:08] LABS: BASO% 0.2 % (0.0-0.8); EOS% 1.7 % (0.0-10.0); HEMATOCRIT 28.7 % (37.0-47.0); HEMOGLOBIN 8.5 g/dL (12.0-16.0); IMM GRAN# 0.02 X1000 (0.0-0.04); IMM GRAN% 0.3 % (0.0-0.5); LYMPH# 1.03 X1000 (1.2-3.4); LYMPH% 17.2 % (20.5-51.1); MANUAL DIFF NEEDED? NO; MCH 31.4 PG (27-31); MCHC 29.6 g/dL (33-37); MCV 105.9 FL (81-99); MONO# 0.88 X1000 (0.11-0.59); MONO% 14.7 % (1.7-9.3); MPV 9.3 FL (7.4-10.4); NEUT% 65.9 % (42.2-75.2); PLT 79 X1000 (130-400); RBC 2.71 XMIL (4.2-5.4)
[2016-06-12 06:19] LABS: AGAP 6; BUN 67 mg/dL (8-22); CALCIUM 9.5 mg/dL (8.8-10.2); CHLORIDE 93 mmol/L (98-107); COSMO 299; MAGNESIUM 2.8 mg/dL (1.5-2.7); POTASSIUM 4.2 mmol/L (3.5-5.1); SODIUM 139 mmol/L (136-145); TCO2 40 mmol/L (25-35)
[2016-06-12] MEDS: PRILOSEC PO SCH (06:28)
[2016-06-12] MEDS: SYNTHROID PO SCH (06:28)
[2016-06-12] MEDS: HUMALOG SUBQ SCH ×4 (06:28→22:11)
[2016-06-12] MEDS: NORCO-5 PO PRN ×4 (06:31→22:09)
[2016-06-12] MEDS: SYMBICORT 160/4.5 MICROGM INHALER INH SCH ×2 (08:07→19:15)
[2016-06-12] MEDS: COZAAR PO SCH (09:50)
[2016-06-12] MEDS: LACTULOSE PO SCH (09:50)
[2016-06-12] MEDS: THERA M PLUS PO SCH (09:50)
[2016-06-12] MEDS: CYMBALTA PO SCH (09:50)
[2016-06-12] MEDS: MUCINEX PO SCH ×2 (09:50→22:11)
[2016-06-12] MEDS: LASIX IV SCH ×2 (09:50→22:11)
[2016-06-12] MEDS: TOPROL XL PO SCH (09:51)
[2016-06-12] MEDS: FOLIC ACID PO SCH (09:51)
[2016-06-12] MEDS: LEVEMIR SUBQ SCH ×2 (09:51→22:08)
[2016-06-12] MEDS: XANAX PO PRN ×2 (10:07→22:09)
[2016-06-12] MEDS: VOLTAREN 1% GEL TOP SCH ×4 (10:08→22:14)
[2016-06-12] MEDS: MYCOSTATIN POWDER TOP SCH ×2 (11:14→22:14)
[2016-06-12] MEDS: ZOFRAN IV PRN (11:32)
--- NOTE | 2016-06-12 15:47 | PROGRESS NOTE ---
DATE: 06/12/2016 SUBJECTIVE: This patient states that she is feeling much better today. She is still having mild shortness of breath and cough. We talked about tobacco abuse and she states that she occasionally smokes cigarettes. Of course, I highly advised this patient to stop smoking and I will continue with daily cessation education. OBJECTIVE: Vital Signs: Temperature 98.5 degrees, pulse 93, respiratory rate 18, blood pressure 113/41, oxygen saturation 93 on 4 L of nasal cannula. Urine output so far 2500 mL. HEENT: Head normocephalic. No trauma. PERRLA. Neck: Supple. No JVD. No masses. Central trachea. Chest: Bilateral rales mostly at the bases. Decreased breath sounds globally. Prolonged expiratory phase. Mild scattered rhonchi. Cardiovascular: RRR. No murmurs. Abdomen: Soft, obese, nontender, nondistended. No hepatosplenomegaly. Extremity: 2+ lower extremity edema. Neurological: The patient is alert and oriented x3. No focal neurological deficits. LABORATORY: WBC 5.9, hemoglobin 8.5, hematocrit 28.7, platelet 79,000. Sodium 139, potassium 4.2, chloride 93, bicarbonate 40. BUN 67, creatinine 0.8, glucose 130, calcium 9.5. ASSESSMENT AND PLAN: 1. CHF exacerbation. Continue with IV Lasix, she is getting better. Cardiology Department is on board. We will continue to monitor. 2. COPD. Continue with breathing treatment and oxygen, she feels better. She is still smoking cigarettes. 3. Hypertension. Continue with the same management. 4. Hyperlipidemia. Continue with atorvastatin. 5. Chronic microcytic anemia. Continue to follow. 6. Chronic thrombocytopenia. This patient has been previously under the care of Dr. Hooker, from Hematology/Oncology. There is no sign of bleed. Continue to follow. 7. Hypothyroidism. Continue with the levothyroxine. 8. Sleep apnea. This patient uses a CPAP machine during the night. We need to continue with this as well. cc: Andrea Zuniga MD
--- NOTE | 2016-06-12 16:27 | PALLIATIVE CARE CONSULTATION ---
DATE: 06/12/2016 REQUESTING PHYSICIAN: Dr. Zuniga. REASON FOR CONSULTATION: Goals of care. HISTORY OF PRESENT ILLNESS: Ms. Peck a 70-year-old, morbidly obese, female with a past medical history of chronic hypercapnic respiratory failure, COPD, obstructive sleep apnea, diabetes mellitus type 2, chronic pain syndrome, mitral valve prolapse, chronic diastolic heart failure, hypertension, and Crohn disease. She was most recently admitted on 06/11/2016, after transferring from [facility] to the ED with complaints of worsening shortness of breath, weakness, fatigue, and lower extremity edema. It is reported that on arrival to the ED the patient's O2 saturation was in the low 50s. The patient, her sister, and granddaughter are present for the consultation. The patient states that over the last 3 months, she has had an overall decline. She has had increased fatigue and decreased appetite, and symptoms at rest including shortness of breath and chest pain. She has had multiple admissions over the last 6 months. She states that she only feels minimal improvement with every admission and does not feel that she bounces back to what her status was prior to that admission. Currently, she complains of pain to bilateral lower extremities. She states that she has mild shortness of breath, especially with conversation. The Palliative Care team has been consulted to assist with goals of care. REVIEW OF SYSTEMS: Twelve-point review of systems has been conducted and is otherwise negative except those mentioned in the HPI. PAST MEDICAL HISTORY: See HPI. PAST SURGICAL HISTORY: 1. Breast reduction. 2. Knee surgery. SOCIAL HISTORY: Prior to this admission, she was a resident of [facility] in [place]. Alcohol, tobacco, and drug use have been denied. Her sister is listed as her power of smutter. She does have 2 adult children, but they are not involved in her care. FAMILY HISTORY: Positive for colon cancer and diabetes mellitus. PHYSICAL EXAMINATION: General: This is a 70-year-old, morbidly obese, female who does not appear to be in any acute distress. HEENT: Atraumatic, normocephalic. Neck: Trachea is midline. Cardiovascular: Regular rate and rhythm, with murmur. Pulmonary: Lung sounds are diminished, with crackles auscultated bilaterally. Abdomen: Soft. Bowel sounds are active. Extremities: Pulses are palpable. Neurologic: Awake, alert, and oriented to person, place and time. IMPRESSION: This is a 70-year-old morbidly obese female with the past medical history as listed above in the history of present illness. I met with the patient, her sister - who is her power of smutter, and her granddaughter to discuss goals of care. We discussed the progressive nature of her illnesses and her overall state of health and decline over the last 6 months. As previously mentioned, the patient states that she is noticing more of her symptoms at rest, she has increased fatigue and decreased appetite. The patient states that she does not want to keep coming back and forth to the hospital, and she states that she understands that her illnesses are becoming end-stage. We discussed comfort measures, as [facility] has their own comfort care program, but the patient states that she is not sure she can make that decision to become comfort measures only. We also discussed her advance directive. She is a full code at this time. She does not want to make any changes to her code status at this time. Her sister, who is a power of smutter, and her granddaughter have very different views on her overall health condition. Her power of smutter understands that her health is declining and that she is becoming end-stage to her illnesses. Her granddaughter does not agree with that and wants her to obtain all aggressive measures. I feel that Ms. Peck's palliative performance scale is 40%. She is a full code. I will follow up with Mr. Peck daily to continue the conversation of goals of care. Thank you for this consultation. Dictated by LYNN Wu for Roland Stanford MD cc: LYNN Wu MD
[2016-06-12] MEDS: MIRAPEX PO SCH (22:09)
[2016-06-12] MEDS: TOPAMAX PO SCH (22:10)
[2016-06-12] MEDS: LIPITOR PO SCH (22:11)
[2016-06-12] MEDS: NEURONTIN PO SCH (22:11)
[2016-06-12] MEDS: MELATONIN PO SCH (22:18)
[2016-06-13] MEDS: DUONEB (A & A) INH PRN ×6 (03:19→22:55)
[2016-06-13] MEDS: NORCO-5 PO PRN ×4 (03:40→22:43)
[2016-06-13 05:52] LABS: BASO% 0.2 % (0.0-0.8); EOS# 0.16 X1000 (0.0-0.7); EOS% 2.8 % (0.0-10.0); HEMATOCRIT 30.6 % (37.0-47.0); HEMOGLOBIN 8.9 g/dL (12.0-16.0); IMM GRAN# 0.03 X1000 (0.0-0.04); IMM GRAN% 0.5 % (0.0-0.5); MANUAL DIFF NEEDED? NO; MCH 31.6 PG (27-31); MCHC 29.1 g/dL (33-37); MCV 108.5 FL (81-99); MONO# 0.89 X1000 (0.11-0.59); MONO% 15.8 % (1.7-9.3); MPV 9.3 FL (7.4-10.4); NEUT% 64.7 % (42.2-75.2); PLT 88 X1000 (130-400); RBC 2.82 XMIL (4.2-5.4)
[2016-06-13 06:14] LABS: AGAP 7; BUN 53 mg/dL (8-22); CALCIUM 9.1 mg/dL (8.8-10.2); CHLORIDE 95 mmol/L (98-107); COSMO 300; SODIUM 143 mmol/L (136-145); TCO2 41 mmol/L (25-35)
[2016-06-13] MEDS: PRILOSEC PO SCH (06:28)
[2016-06-13] MEDS: SYNTHROID PO SCH (06:28)
[2016-06-13] MEDS: HUMALOG SUBQ SCH ×4 (06:45→21:24)
[2016-06-13] MEDS: SYMBICORT 160/4.5 MICROGM INHALER INH SCH ×2 (07:59→19:11)
[2016-06-13] MEDS: LASIX IV SCH ×2 (09:00→21:24)
[2016-06-13] MEDS: THERA M PLUS PO SCH (09:00)
[2016-06-13] MEDS: LACTULOSE PO SCH (09:00)
[2016-06-13] MEDS: DURAGESIC 25 MICROGM/HR PATCH TD SCH (09:00)
[2016-06-13] MEDS: LEVEMIR SUBQ SCH ×2 (09:00→23:20)
[2016-06-13] MEDS: TOPROL XL PO SCH (09:00)
[2016-06-13] MEDS: MUCINEX PO SCH ×2 (09:00→21:23)
[2016-06-13] MEDS: COZAAR PO SCH (09:00)
[2016-06-13] MEDS: FOLIC ACID PO SCH (09:00)
[2016-06-13] MEDS: XANAX PO PRN ×2 (09:00→21:23)
[2016-06-13] MEDS: CYMBALTA PO SCH (09:00)
[2016-06-13] MEDS: VOLTAREN 1% GEL TOP SCH ×4 (09:00→23:17)
[2016-06-13] MEDS: ZOFRAN IV PRN (09:35)
[2016-06-13] MEDS ORDERED: DULCOLAX PR ONE (11:09)
--- NOTE | 2016-06-13 15:01 | PROGRESS NOTE ---
DATE: 06/13/2016 SUBJECTIVE: This patient states that she is feeling better today. She is complaining of constipation for the past 4 days. She has not had a bowel movement. I have ordered a suppository and also I will put this patient on lactulose daily. OBJECTIVE: Vital Signs: Temperature 98 degrees, pulse 89, respiratory rate 16, blood pressure 141/44, O2 saturation 98 on 4 L of nasal cannula. HEENT: Head normocephalic. No trauma. PERRLA. Neck: Supple. No JVD. No masses. Central trachea. Chest: Bilateral rales mostly at the bases. Decreased breath sounds globally, prolonged expiratory phase, mild scattered rhonchi bilaterally. Cardiovascular: RRR. No murmurs. Abdomen: Soft, obese, nontender, nondistended. No hepatosplenomegaly. Extremities: 2+ lower extremity edema. Neurological: The patient is alert and oriented x3. No focal neurological deficits. LABORATORY: WBC 5.6, hemoglobin 8.9, hematocrit 30.6, platelets 88,000. Sodium 143, potassium 5, chloride 9,5, bicarbonate 41, BUN 53, creatinine 0.9, glucose 116, calcium 9.1. ASSESSMENT AND PLAN: 1. Congestive heart failure exacerbation. Continue with IV Lasix. She is getting better. Cardiology Department is on board. We will continue to monitor. 2. Chronic obstructive pulmonary disease. Continue with breathing treatment and oxygen. She feels better. She is still smoking cigarettes. 3. Hypertension. Continue with the same management. 4. Constipation. Today I will use a suppository and I will put this patient on lactulose. 5. Hyperlipidemia. Continue with atorvastatin. 6. Chronic macrocytic anemia. Continue to follow. 7. Chronic thrombocytopenia. Stable. 8. Hypothyroidism. Continue with levothyroxine. 9. Sleep apnea. This patient uses a CPAP machine during the night. We need to continue with this treatment as well. 10. Tobacco abuse. This patient has been highly advised against tobacco use. I will continue with daily cessation education. cc: Andrea Zuniga MD
[2016-06-13] MEDS: MYCOSTATIN POWDER TOP SCH ×2 (17:14→21:24)
[2016-06-13] MEDS: MIRAPEX PO SCH (21:23)
[2016-06-13] MEDS: TOPAMAX PO SCH (21:23)
[2016-06-13] MEDS: NEURONTIN PO SCH (21:23)
[2016-06-13] MEDS: LIPITOR PO SCH (21:23)
[2016-06-13] MEDS: MELATONIN PO SCH (21:24)
[2016-06-14] MEDS: DUONEB (A & A) INH PRN ×5 (02:59→18:55)
[2016-06-14] MEDS: NORCO-5 PO PRN ×4 (03:36→22:19)
[2016-06-14] MEDS: HUMALOG SUBQ SCH ×4 (06:07→22:14)
[2016-06-14] MEDS: SYNTHROID PO SCH (06:08)
[2016-06-14] MEDS: PRILOSEC PO SCH (06:08)
[2016-06-14] MEDS: SYMBICORT 160/4.5 MICROGM INHALER INH SCH ×2 (06:37→18:55)
[2016-06-14 07:06] LABS: AGAP 6; BUN 43 mg/dL (8-22); CALCIUM 9.4 mg/dL (8.8-10.2); CHLORIDE 94 mmol/L (98-107); COSMO 294; POTASSIUM 5.4 mmol/L (3.5-5.1); SODIUM 141 mmol/L (136-145); TCO2 41 mmol/L (25-35)
--- NOTE | 2016-06-14 09:02 | Diag Imaging Result Document ---
PROCEDURE NAME: CHEST-1 VIEW - 06/14/2016 SINGLE FRONTAL RADIOGRAPH OF THE CHEST: COMPARISON: 06/10/2016. FINDINGS: Inspiration is suboptimal. This is causing central vascular crowding. There is also likely a component of pulmonary venous congestion that is mild and stable. Mild increased interstitial markings suggesting mild edema is essentially unchanged. No new consolidations are identified. Cardiac silhouette is stable. IMPRESSION: Lower lung volumes but essentially stable chest, otherwise.
[2016-06-14] MEDS: CYMBALTA PO SCH (11:19)
[2016-06-14] MEDS: ZOFRAN IV PRN ×3 (11:19→22:19)
[2016-06-14] MEDS: XANAX PO PRN ×2 (11:19→22:19)
[2016-06-14] MEDS: TOPROL XL PO SCH (11:20)
[2016-06-14] MEDS: LACTULOSE PO SCH ×2 (11:20→20:12)
[2016-06-14] MEDS: THERA M PLUS PO SCH (11:20)
[2016-06-14] MEDS: FOLIC ACID PO SCH (11:20)
[2016-06-14] MEDS: LEVEMIR SUBQ SCH ×2 (11:20→22:13)
[2016-06-14] MEDS: COZAAR PO SCH (11:20)
[2016-06-14] MEDS: MUCINEX PO SCH ×2 (11:20→22:15)
[2016-06-14] MEDS: MYCOSTATIN POWDER TOP SCH ×2 (11:29→16:49)
[2016-06-14] MEDS: VOLTAREN 1% GEL TOP SCH ×4 (11:29→22:15)
[2016-06-14] MEDS: LASIX IV SCH ×2 (11:33→22:13)
[2016-06-14] MEDS ORDERED: INSULIN PEN NEEDLES ONE (16:17)
--- NOTE | 2016-06-14 16:37 | PROGRESS NOTE ---
DATE: 06/14/2016 Account number AH cirrhosis or [id number]. SUBJECTIVE: This patient feels about the same compared with yesterday. She has been complaining of constipation but she had a bowel movement. She is still complaining of mild shortness of breath and generalized weakness. OBJECTIVE: Vital Signs: Temperature 98.3 degrees, pulse 87, respiratory rate 15, blood pressure 115/33, O2 saturation 93 on 3 L of nasal cannula. HEENT: Head normocephalic. No trauma. PERRLA. Neck: Supple. No JVD. No masses. Central trachea. Chest: Bilateral rales mostly at the bases. Decreased breath sounds globally. Prolonged expiatory phase. Mild scattered rhonchi bilaterally. Cardiovascular: RRR. No murmurs. Abdomen: Soft, obese, nontender, nondistended. No hepatosplenomegaly. Extremity: 2 to 3+ lower extremity edema. Neurological: The patient is alert and oriented x3. No focal deficits. LABORATORY: Sodium 141, potassium 5.4, chloride 94, bicarbonate 41, BUN 43, creatinine 0.8, glucose 140, calcium 9.4. ASSESSMENT AND PLAN: 1. Congestive heart failure exacerbation. Continue with IV Lasix. She is getting better. Cardiology Department is following this patient. We will continue to monitor. 2. Chronic obstructive pulmonary disease not in exacerbation at this moment. Continue with breathing treatment and oxygen. She feels better. She is still smoking cigarettes. 3. Hypertension. Continue with the same management. 4. Constipation. This is better, I will continue with daily stool softener. 5. Hyperlipidemia. Continue with atorvastatin. 6. Chronic macrocytic anemia. Continue to follow. 7. Chronic thrombocytopenia stable. 8. Hypothyroidism. Continue with levothyroxine. 9. Sleep apnea. This patient uses a CPAP machine during the night. Continue with the same management. 10. Tobacco abuse. This patient has been highly advised against tobacco use. I will continue with daily cessation education. cc: Andrea Zuniga MD
[2016-06-14] MEDS ORDERED: MIRALAX PO ONE (20:46)
[2016-06-14] MEDS: MIRAPEX PO SCH (22:14)
[2016-06-14] MEDS: NEURONTIN PO SCH (22:14)
[2016-06-14] MEDS: LIPITOR PO SCH (22:15)
[2016-06-14] MEDS: TOPAMAX PO SCH (22:15)
[2016-06-14] MEDS: MELATONIN PO SCH (22:15)
[2016-06-15] MEDS: NORCO-5 PO PRN ×3 (06:28→21:41)
[2016-06-15] MEDS: SYNTHROID PO SCH (06:28)
[2016-06-15] MEDS: PRILOSEC PO SCH (06:28)
[2016-06-15] MEDS: HUMALOG SUBQ SCH ×4 (06:28→21:43)
[2016-06-15] MEDS: MYCOSTATIN POWDER TOP SCH ×3 (06:29→21:43)
[2016-06-15] MEDS: ZOFRAN IV PRN ×4 (06:32→21:53)
[2016-06-15 06:40] LABS: BASO% 0.2 % (0.0-0.8); EOS# 0.36 X1000 (0.0-0.7); EOS% 5.6 % (0.0-10.0); HEMATOCRIT 27.5 % (37.0-47.0); HEMOGLOBIN 8.1 g/dL (12.0-16.0); IMM GRAN# 0.06 X1000 (0.0-0.04); IMM GRAN% 0.9 % (0.0-0.5); LYMPH# 0.81 X1000 (1.2-3.4); LYMPH% 12.7 % (20.5-51.1); MANUAL DIFF NEEDED? YES; MCH 31.9 PG (27-31); MCHC 29.5 g/dL (33-37); MCV 108.3 FL (81-99); MONO# 0.89 X1000 (0.11-0.59); MONO% 13.9 % (1.7-9.3); MPV 9.8 FL (7.4-10.4); NEUT% 66.7 % (42.2-75.2); PLT 82 X1000 (130-400); RBC 2.54 XMIL (4.2-5.4)
[2016-06-15 07:17] LABS: AGAP 6; BUN 41 mg/dL (8-22); CALCIUM 9.1 mg/dL (8.8-10.2); CHLORIDE 93 mmol/L (98-107); COSMO 293; SODIUM 141 mmol/L (136-145); TCO2 42 mmol/L (25-35)
[2016-06-15] MEDS: DUONEB (A & A) INH PRN ×4 (07:21→23:25)
[2016-06-15] MEDS: SYMBICORT 160/4.5 MICROGM INHALER INH SCH ×2 (07:21→19:52)
[2016-06-15 08:06] LABS: BANDS 2 % (0-1); EOS 2 % (1-10); HYPOCHROM 1+; LARGE PLATELETS 1+; LYMPHS 18 % (21-51); MONO 12 % (1-9)
[2016-06-15] MEDS: LACTULOSE PO SCH (08:32)
[2016-06-15] MEDS: THERA M PLUS PO SCH (08:33)
[2016-06-15] MEDS: COZAAR PO SCH (08:33)
[2016-06-15] MEDS: FOLIC ACID PO SCH (08:33)
[2016-06-15] MEDS: MUCINEX PO SCH ×2 (08:33→21:42)
[2016-06-15] MEDS: CYMBALTA PO SCH (08:34)
[2016-06-15] MEDS: VOLTAREN 1% GEL TOP SCH ×4 (08:35→21:41)
[2016-06-15] MEDS: LEVEMIR SUBQ SCH ×2 (08:35→21:42)
[2016-06-15] MEDS: LASIX IV SCH ×2 (08:35→21:42)
[2016-06-15] MEDS: TOPROL XL PO SCH (08:36)
[2016-06-15] MEDS: XANAX PO PRN ×2 (09:10→21:41)
[2016-06-15 16:59] LABS: ALLEN TEST YES; BE 18.1 mmoll (-3.0-3.0); BLOOD TYPE ARTERIAL; DRAW SITE L RADIAL; METHB 1.2 % (0.0-1.5); O2(CT) 10.2 mL/dL (15.0-23.0); SAMPLE BLOOD; THB 8.6 g/dL (11.5-17.4); pH(98.6) 7.35 (7.35-7.45)
[2016-06-15 17:04] LABS: PCO2(98.6) 84 mmHg (35-45)
[2016-06-15 17:05] LABS: MODALITY CANNULA; PO2(98.6) 49 mmHg (60-100)
--- NOTE | 2016-06-15 18:45 | PROGRESS NOTE ---
DATE: 06/15/2016 SUBJECTIVE: This patient feels about the same compared with yesterday. The constipation resolved. She is still complaining of mild shortness of breath and generalized weakness. OBJECTIVE: Vital Signs: Temperature 98.0, pulse 90, respiratory rate 20, blood pressure 108/71. O2 saturation 100% on 5 L of nasal cannula. HEENT: Head normocephalic. No trauma. Pupils equal, round, and reactive to light and accommodation. Neck: Supple. No jugular venous distention. No masses. Central trachea. Chest: Decreased breath sounds globally. Prolonged expiatory phase. Mild scattered rhonchi bilaterally. Cardiovascular: Regular rate and rhythm. No murmurs. Abdomen: Soft, obese, nontender, nondistended. No hepatosplenomegaly. Extremities: 2+ lower extremity edema. Neurological Examination: The patient is alert and oriented x3. No focal neurological deficits. LABORATORY: WBC 6.4, hemoglobin 8.1, hematocrit 27.5, platelets 82,000. Sodium 141, potassium 5, chloride 93, bicarbonate 42. BUN 41, creatinine 0.8, glucose 122. Calcium 9.1. B-type natriuretic peptide 3448. ASSESSMENT AND PLAN: 1. Congestive heart failure exacerbation. Continue with IV Lasix. She feels better. Cardiology Department is following this patient. We will continue to monitor. 2. Chronic obstructive pulmonary disease, not in exacerbation at this moment. Continue breathing treatment and oxygen. 3. Hypertension. Continue with the same management. 4. Constipation. This is better. Continue with daily stool softener. 5. Hyperlipidemia. Continue with atorvastatin. 6. Chronic macrocytic anemia. Continue to follow. 7. Chronic thrombocytopenia. Stable. 8. Hypothyroidism. Continue with levothyroxine. 9. Sleep apnea. This patient uses a CPAP machine during the night. Continue with the same management here. 10. Tobacco abuse. This patient has been highly advised against tobacco use. I will continue with daily cessation education. cc: Andrea Zuniga MD
[2016-06-15] MEDS: LIPITOR PO SCH (21:42)
[2016-06-15] MEDS: MELATONIN PO SCH (21:42)
[2016-06-15] MEDS: NEURONTIN PO SCH (21:42)
[2016-06-15] MEDS: MIRAPEX PO SCH (21:42)
[2016-06-15] MEDS: TOPAMAX PO SCH (21:42)
[2016-06-16] MEDS: NORCO-5 PO PRN ×5 (01:45→20:05)
[2016-06-16] MEDS: DUONEB (A & A) INH PRN ×3 (03:12→11:48)
[2016-06-16] MEDS: ZOFRAN IV PRN ×3 (05:52→21:27)
[2016-06-16] MEDS: PRILOSEC PO SCH ×2 (05:52→06:32)
[2016-06-16] MEDS: SYNTHROID PO SCH ×2 (05:52→06:32)
[2016-06-16 06:20] LABS: BASO% 0.1 % (0.0-0.8); EOS# 0.16 X1000 (0.0-0.7); EOS% 2.1 % (0.0-10.0); HEMOGLOBIN 8.4 g/dL (12.0-16.0); IMM GRAN# 0.03 X1000 (0.0-0.04); IMM GRAN% 0.4 % (0.0-0.5); LYMPH# 0.86 X1000 (1.2-3.4); LYMPH% 11.1 % (20.5-51.1); MANUAL DIFF NEEDED? NO; MONO# 1.18 X1000 (0.11-0.59); MONO% 15.2 % (1.7-9.3); MPV 9.1 FL (7.4-10.4); NEUT% 71.1 % (42.2-75.2); PLT 81 X1000 (130-400); RBC 2.71 XMIL (4.2-5.4)
[2016-06-16] MEDS: HUMALOG SUBQ SCH ×4 (06:32→20:10)
[2016-06-16 06:38] LABS: AGAP 8; BUN 37 mg/dL (8-22); CALCIUM 9.3 mg/dL (8.8-10.2); CHLORIDE 89 mmol/L (98-107); COSMO 283; POTASSIUM 5.2 mmol/L (3.5-5.1); SODIUM 136 mmol/L (136-145); TCO2 39 mmol/L (25-35)
--- NOTE | 2016-06-16 07:29 | Diag Imaging Result Document ---
PROCEDURE NAME: CHEST-PORTABLE - 06/16/2016 SINGLE FRONTAL RADIOGRAPH OF THE CHEST: COMPARISON: 06/14/2016. FINDINGS: There is suggestion of likely pulmonary venous congestion that is stable to marginally improved. No new consolidations are identified. Cardiac silhouette is stable. IMPRESSION: Stable to marginal improvement of pulmonary venous congestion.
[2016-06-16] MEDS: SYMBICORT 160/4.5 MICROGM INHALER INH SCH ×2 (08:05→19:10)
[2016-06-16] MEDS: LEVEMIR SUBQ SCH ×2 (09:46→20:10)
[2016-06-16] MEDS: TOPROL XL PO SCH (09:47)
[2016-06-16] MEDS: THERA M PLUS PO SCH (09:48)
[2016-06-16] MEDS: XANAX PO PRN ×2 (09:48→21:27)
[2016-06-16] MEDS: COZAAR PO SCH (09:48)
[2016-06-16] MEDS: FOLIC ACID PO SCH (09:48)
[2016-06-16] MEDS: MUCINEX PO SCH ×2 (09:48→20:04)
[2016-06-16] MEDS: CYMBALTA PO SCH (09:48)
[2016-06-16] MEDS: LASIX IV SCH ×2 (09:49→20:05)
[2016-06-16] MEDS: DURAGESIC 25 MICROGM/HR PATCH TD SCH (09:50)
[2016-06-16] MEDS: VOLTAREN 1% GEL TOP SCH ×4 (09:50→20:18)
[2016-06-16] MEDS: LACTULOSE PO SCH (09:50)
[2016-06-16] MEDS: MYCOSTATIN POWDER TOP SCH ×2 (09:51→20:19)
--- NOTE | 2016-06-16 13:22 | PROGRESS NOTE ---
DATE: 06/16/2016 SUBJECTIVE: Patient reports feeling the same in comparing with yesterday with shortness of breath. This is definitely the same. She said that she is at her baseline. She is also weak. OBJECTIVE: Vital Signs: Temperature 98.0 degrees, heart rate 84, respiratory rate 20, blood pressure 121/41, O2 saturation 94% on 5 L nasal cannula. General Examination: This is a chronically ill-looking, morbidly obese and frail, 70-year-old female , lying in bed in no acute distress. HEENT: Head is normocephalic, atraumatic. Anicteric sclerae and pale conjunctivae. Mucous membranes moist. Neck: Supple. No JVD noted. No carotid bruits. No lymphadenopathy. No thyromegaly. Cardiovascular exam: S1 and S2 heard. No murmurs, gallops, or rubs. Regular rate and rhythm. Respiratory exam: Prolonged expiratory phase with decreased breath sounds globally. The patient is not using any accessory muscles or having work of breathing. Abdomen: Soft, nontender to palpation. Obese, nondistended. No splenomegaly or hepatomegaly noted. Extremities: 2+ pitting edema in both lower extremities. Neurological exam: Patient alert and oriented x3. Able to move 4 extremities. Cranial nerves 2- 12 grossly normal. LABORATORY DATA: White cell count 7.74, hemoglobin 8.4, hematocrit 29.0, platelets 81. The BMP is remarkable for creatinine 5.2, glucose 144. ASSESSMENT AND PLAN: 1. Congestive heart failure. Patient is on Lasix 40 mg intravenous every 12 hours. X-ray from today shows marginal improvement in this condition. We are going to continue with the same management. Cardiology on board. They initially ordered an echocardiogram, but then it was canceled. Will see what they have to say today. 2. Chronic obstructive pulmonary disease. According to the patient, she was receiving breathing treatments 3 to 4 times per day, but we are going to increase it to every 4 hours see if that helps with shortness of breath. CO2 from yesterday was 84 but I do think her levels are higher. Will check ABG daily and continue with BIPAP. 3. Hypertension. Blood pressure is under control. 4. Constipation, resolved. 5. Hyperlipidemia. We will continue with atorvastatin. 6. Chronic microcytic anemia. We will continue to follow. That is stable today. 7. Chronic thrombocytopenia, stable. 8. Hypothyroidism. Patient is on levothyroxine. We will continue with the same doses. 9. Sleep apnea. Patient is supposed to use CPAP machine at night. We will continue with same management here. 10. Physical deconditioning. Patient's physical condition has declined while the patient is in the hospital. The patient is going to get appointment and placement in [facility]. We are going to check x-ray tomorrow, and if she continues showing improvement we are going to send this patient back to her usual placement. cc: Griffin Powell MD MTDD
--- NOTE | 2016-06-16 14:34 | Diag Imaging Result Document ---
PROCEDURE NAME: ANGIOGRAM/PULMONARY ARTERIES - 06/16/2016 CT CHEST WITH INTRAVENOUS CONTRAST. TECHNIQUE: Dose reduction protocol. COMPARISON: Compared to 04/30/2016. FINDINGS: There is normal opacification of the pulmonary arteries and their major branches. No filling defects. Mild cardiomegaly. No thoracic aortic aneurysm or dissection. There are faint ground-glass infiltrates in addition to basilar atelectasis. No bronchiectasis. IMPRESSION: 1. No pulmonary emboli. 2. Bilateral ground-glass infiltrates with basilar atelectasis. 3. Stable cardiomegaly.
[2016-06-16] MEDS ORDERED: DUONEB (A & A) INH SCH (15:00)
[2016-06-16] MEDS: DUONEB (A & A) INH SCH ×3 (16:05→23:07)
[2016-06-16] MEDS: SPIRIVA INH SCH (16:05)
[2016-06-16] MEDS: MELATONIN PO SCH (20:03)
[2016-06-16] MEDS: TOPAMAX PO SCH (20:03)
[2016-06-16] MEDS: MIRAPEX PO SCH (20:04)
[2016-06-16] MEDS: LIPITOR PO SCH (20:04)
[2016-06-16] MEDS: NEURONTIN PO SCH (20:05)
[2016-06-17] MEDS: NORCO-5 PO PRN ×3 (02:48→17:04)
[2016-06-17] MEDS: DUONEB (A & A) INH SCH ×6 (03:52→22:48)
[2016-06-17 04:56] LABS: ALLEN TEST YES; BE 17.4 mmoll (-3.0-3.0); BLOOD TYPE ARTERIAL; DRAW SITE R RADIAL; METHB 1.4 % (0.0-1.5); O2(CT) 16.7 mL/dL (15.0-23.0); PO2(98.6) 118 mmHg (60-100); SAMPLE BLOOD; SAO2 98.2 % (95.0-100.0); THB 12.4 g/dL (11.5-17.4); pH(98.6) 7.43 (7.35-7.45)
[2016-06-17 04:57] LABS: MODALITY BI PAP; PCO2(98.6) 68 mmHg (35-45)
[2016-06-17] MEDS: PRILOSEC PO SCH (06:26)
[2016-06-17] MEDS: SYNTHROID PO SCH (06:27)
[2016-06-17] MEDS: ZOFRAN IV PRN ×2 (06:50→17:04)
[2016-06-17] MEDS: HUMALOG SUBQ SCH ×4 (07:28→20:53)
[2016-06-17] MEDS: SPIRIVA INH SCH (08:00)
[2016-06-17] MEDS: SYMBICORT 160/4.5 MICROGM INHALER INH SCH ×2 (08:00→19:05)
[2016-06-17] MEDS: LASIX IV SCH ×2 (09:39→20:27)
[2016-06-17] MEDS: LEVEMIR SUBQ SCH ×2 (09:42→20:53)
[2016-06-17] MEDS: COZAAR PO SCH (09:43)
[2016-06-17] MEDS: LACTULOSE PO SCH (09:43)
[2016-06-17] MEDS: TOPROL XL PO SCH (09:43)
[2016-06-17] MEDS: THERA M PLUS PO SCH (09:44)
[2016-06-17] MEDS: FOLIC ACID PO SCH (09:44)
[2016-06-17] MEDS: CYMBALTA PO SCH (09:44)
[2016-06-17] MEDS: MUCINEX PO SCH ×2 (09:44→20:27)
[2016-06-17] MEDS: VOLTAREN 1% GEL TOP SCH ×4 (09:50→20:31)
[2016-06-17] MEDS: MYCOSTATIN POWDER TOP SCH ×2 (09:50→20:31)
[2016-06-17] MEDS: DULCOLAX PO SCH (14:49)
[2016-06-17] MEDS: LEVAQUIN 750 MG/D5W 750 MG/150 ML IVPB IV SCH (14:49)
--- NOTE | 2016-06-17 15:55 | PROGRESS NOTE ---
DATE: 06/17/2016 SUBJECTIVE: The patient reports feeling better in comparing with yesterday with less shortness of breath. She reports also feeling a little bit weak. No fever or chills reported. OBJECTIVE: Vital Signs: Temperature 97.8 degrees, heart rate 71, respiratory rate 15, blood pressure 169/98, O2 saturation 100% on 5 L nasal cannula. General: This is a chronically ill- looking, morbidly obese, frail, 70-year-old female, looking older than her age, lying in bed, in no acute distress. HEENT: Head is normocephalic and atraumatic. Anicteric sclerae and pale conjunctivae. Mucous membranes moist. Neck supple. No JVD noted. No carotid bruits. No lymphadenopathy. No thyromegaly. Cardiovascular: S1 and S2 heard. No murmurs, gallops, or rubs. Regular rate and rhythm. Respiratory: Prolonged expiratory phase with decreased breath sounds globally. The patient is not using any accessory muscles or having work of breathing. Abdomen is soft, nontender to palpation, obese, nondistended. No splenomegaly or hepatomegaly noted. Extremity: 2+ pitting edema in both lower extremities. Neurologic. The patient is alert and oriented x3, able to move 4 extremities. Cranial nerves 2-12 grossly normal. LABORATORY DATA: Reviewed. ASSESSMENT AND PLAN: 1. Congestive heart failure. The patient is on Lasix 40 IV q.12 hours. An x-ray shows marginal improvement from this condition. Also, the angiogram of pulmonary arteries to rule out any pulmonary embolism returned negative for pulmonary embolus but shows some ground glass infiltrates. 2. Chronic obstructive pulmonary disease exacerbation. The patient is on breathing treatments every 4 hours. We will continue with same management. 3. Acute hypercapnic respiratory failure. I think this patient is probably around those numbers between 60 and 70 pCO2. The patient is supposed to use BiPAP at home all night long. We will continue with the same management. 4. Hypertension. Blood pressure is under control. 5. Constipation. The patient reports that she was not able to go to the bathroom in the last 3 days. We will provide Dulcolax. 6. Hyperlipidemia, stable. 7. Hypothyroidism. We will continue home medications. 8. Sleep apnea. The patient is supposed to use CPAP at home. 9. Physical deconditioning. The patient reports feeling weak. She will require rehab facility but because she got a bed in a rehab place, we will check labs tomorrow. We will check CO2 tomorrow, and if that is the same or less in comparing with today, we will send this patient back home. cc: Griffin Powell MD
[2016-06-17] MEDS ORDERED: INSULIN PEN NEEDLES ONE (16:15)
[2016-06-17] MEDS: NEURONTIN PO SCH (20:26)
[2016-06-17] MEDS: TOPAMAX PO SCH (20:27)
[2016-06-17] MEDS: LIPITOR PO SCH (20:27)
[2016-06-17] MEDS: MIRAPEX PO SCH (20:27)
[2016-06-17] MEDS: MELATONIN PO SCH (20:27)
--- NOTE | 2016-06-17 21:00 | Extremity Venous Study ---
PROCEDURE NAME: Venous U/S Bilateral Legs - 06/11/2016 BILATERAL LOWER EXTREMITY VENOUS DUPLEX, AND COLOR FLOW IMAGING STUDY USING THE [employer] E 9 ULTRASOUND SYSTEM WITH A 9 L-D TRANSDUCER: REFERRING PHYSICIAN: Andrea Zuniga MD IDENTIFYING INFORMATION: A 70-year-old female. SENIOR TECHNICAL ANALYST: Cheryl Billy RVT. INDICATIONS: Shortness of breath. ICD 10 R06.02. FINDINGS: This is a very limited study in the thighs bilaterally due to the patient's morbid obesity. However, when these deep veins were seen, there was no evidence of thrombus and flow through them. The superficial veins had no evidence of thrombus. INTERPRETATION: Limited study secondary to the patient's morbid obesity, but no acute deep venous thrombosis was recognized in either lower extremity when the deep and superficial femoral veins were visualized. cc: MD Jessy Brandon PA
[2016-06-18] MEDS: DUONEB (A & A) INH SCH ×3 (02:45→11:50)
[2016-06-18 03:54] LABS: ALLEN TEST YES; BE 20.3 mmoll (-3.0-3.0); BLOOD TYPE ARTERIAL; DRAW SITE R RADIAL; METHB 0.8 % (0.0-1.5); O2(CT) 9.1 mL/dL (15.0-23.0); PO2(98.6) 78 mmHg (60-100); SAMPLE BLOOD; SAO2 100.7 % (95.0-100.0); SRATE 14 BPM; THB 6.7 g/dL (11.5-17.4); pH(98.6) 7.49 (7.35-7.45)
[2016-06-18 03:56] LABS: MODALITY BI PAP; PCO2(98.6) 60 mmHg (35-45)
[2016-06-18] MEDS: SYNTHROID PO SCH ×2 (05:37→06:37)
[2016-06-18] MEDS: PRILOSEC PO SCH ×2 (05:37→06:37)
[2016-06-18] MEDS: HUMALOG SUBQ SCH ×2 (06:37→11:44)
[2016-06-18] MEDS: NORCO-5 PO PRN ×3 (06:47→15:40)
[2016-06-18] MEDS: SPIRIVA INH SCH (08:07)
[2016-06-18] MEDS: SYMBICORT 160/4.5 MICROGM INHALER INH SCH (08:07)
[2016-06-18] MEDS: LACTULOSE PO SCH (08:27)
[2016-06-18] MEDS: FOLIC ACID PO SCH (08:27)
[2016-06-18] MEDS: DULCOLAX PO SCH (08:27)
[2016-06-18] MEDS: LASIX IV SCH (08:27)
[2016-06-18] MEDS: MUCINEX PO SCH (08:27)
[2016-06-18] MEDS: TOPROL XL PO SCH ×2 (08:28→08:41)
[2016-06-18] MEDS: LEVEMIR SUBQ SCH (08:28)
[2016-06-18] MEDS: COZAAR PO SCH ×2 (08:28→08:39)
[2016-06-18] MEDS: CYMBALTA PO SCH (08:28)
[2016-06-18] MEDS: THERA M PLUS PO SCH (08:28)
[2016-06-18] MEDS: MYCOSTATIN POWDER TOP SCH (08:30)
[2016-06-18] MEDS: VOLTAREN 1% GEL TOP SCH ×2 (08:31→13:25)
[2016-06-18] MEDS: XANAX PO PRN (08:48)
[2016-06-18] MEDS: ZOFRAN IV PRN (08:48)
--- NOTE | 2016-06-18 08:58 | ECHO REPORT ---
ORDER DATE: 06/16/2016 INTERPRETING PHYSICIAN: Dr. Granados CLINICAL INDICATIONS: D[age]em[id number]-old female with dyspnea, CHF. M-MODE MEASUREMENTS: Right ventricle: 4.0 cm. Left ventricle end diastole: 5.3 cm. Left ventricle end systole: 3.2 cm. Posterior wall: 1.0 cm. Interventricular septum: 1.2 cm. Left atrium: Left atrium was not measured. SUMMARY OF 2-DIMENSIONAL IMAGING: This study is limited; however, Definity was used to better visualize the wall motion of the left ventricle. The chamber is dilated moderately to significantly. The left ventricular ejection fraction is preserved at 62%. The mitral anulus shows some calcification. The right ventricle is enlarged with good function. Aortic valve shows significant thickening of the cusps with a prolapsing structure during diastole. This probably represents either an old healed vegetation with disruption of the tissue of the aortic valve cusp. Color flow mapping suggests that there is at least moderate degree of aortic regurgitation; however, the color flow mapping was really quite suboptimal in this study unfortunately. There is no pericardial effusion, masses, or thrombus. The maximum gradient across the aortic valve was 32 mm, and the mean gradient was 17 mmHg. SUMMARY: This limited echocardiographic study shows significant enlargement of the left ventricular chamber with preserved function. There is also enlargement of the right ventricle. The aortic valve is abnormal with at least moderate degree of regurgitation. Consideration may be given at performing a transesophageal echocardiogram. cc: MD Jessy Costello PA
[2016-06-18 11:40] LABS: AGAP 11; BUN 48 mg/dL (8-22); CALCIUM 8.6 mg/dL (8.8-10.2); CHLORIDE 85 mmol/L (98-107); COSMO 286; MAGNESIUM 2.7 mg/dL (1.5-2.7); POTASSIUM 4.7 mmol/L (3.5-5.1); SODIUM 132 mmol/L (136-145); TCO2 36 mmol/L (25-35)
[2016-06-18 11:42] VITALS: BP 139/46
[2016-06-18] MEDS: LEVAQUIN 750 MG/D5W 750 MG/150 ML IVPB IV SCH (12:37)
--- NOTE | 2016-06-18 14:50 | DISCHARGE SUMMARY ---
ADMISSION DATE: 06/11/2016 DISCHARGE DATE: 06/18/2016 CONSULTATION: Dr. Lio Banda with cardiology. PERTINENT PROCEDURES: 1. Extremity venous study was limited due to the patient's morbid obesity and no acute deep venous thrombosis was recognized in either lower extremity when the deep and superficial veins were visualized. 2. Pulmonary arteriogram showed no pulmonary emboli. Bilateral ground glass infiltrates with bibasilar atelectasis. Stable cardiomegaly. 3. Echocardiogram with limited views. Showed enlargement of the left ventricular chamber with preserved function. No enlargement of the right ventricle. Aortic valve was abnormal with at least moderate degree of regurgitation. DISCHARGE DIAGNOSES: 1. Congestive heart failure. Pulmonary arteriogram was performed to rule out any pulmonary embolism. [employer] Service Representative changed the patient to Demadex. They felt that she has reached maximal hospital benefit, and they would not pursue a transesophageal echocardiogram, and would not be a good candidate for cardiovascular surgery. 2. Chronic obstructive pulmonary disease exacerbation, resolved. 3. Acute hypercapnic respiratory failure. The patient's is supposed to wear BiPAP at night; will continue with that. 4. Hypertension, stable. 5. Constipation. Continue with MiraLAX. 6. Hyperlipidemia, stable. 7. Hypothyroidism. Continue Synthroid. 8. Sleep apnea. Again, patient to wear BiPAP at night. 9. Physical deconditioning. Patient is going back to rehabilitation. HOSPITAL COURSE: Briefly, Ms. Peck is a 70-year-old, morbidly obese female, well known to our service with a past medical history of chronic hypercapnic respiratory failure, COPD, obstructive sleep apnea, diabetes mellitus type 2, chronic pain syndrome, MVP, chronic diastolic heart failure, hypertension, Crohn disease. Wears nightly BiPAP. The patient was admitted from [facility] to the ED with complaints of worsening shortness of breath, weakness, fatigue, lower extremity edema. In the ED, the patient's O2 saturations were in the low 50s. The patient has over the last 3 months had an overall decline, increased fatigue, decreased appetite with these symptoms also being at rest. The patient was also ruled out for DVT, as well as PE with palliative care consult, as well as consulted cardiology. She was continued on IV Lasix, continued with her home BiPAP. Cardiology transitioned her after several days of being on IV Lasix to p.o. torsemide at 40 mg p.o. daily. Per cardiology, patient has significantly improved with retrospect to her CHF and may have reached her maximal hospital benefit. They would not pursue a SAMANTHA and she would also be too high risk for CV surgery. The patient is being discharged back to [facility] today. VITAL SIGNS: Temperature is 98.2 degrees, heart rate 81, respirations 20, blood pressure 139/46, O2 was 100% on BiPAP. DISCHARGE DIET: Diabetic with Glucerna. DISCHARGE MEDICATIONS: As per APR. FOLLOWUP: The patient is being discharged back to [facility], where she will continue on nightly BiPAP. She will continue with her full course of antibiotics for 7 days with Levaquin, and she will follow up with cardiology as recommended. The patient also spoke with palliative care while she was in the hospital. They did discuss the progressive nature of her illness and overall state of health and decline. She does understand her illness is becoming end- stage. They did discuss comfort measures at [facility], however she is not sure that she can make that decision to become comfort measures only at this time. The patient did remain a full code. The patient can return to the ED for any worsening of symptoms DISCHARGE TIME: Greater than 30 minutes. Dictated by LYNN Blum for Griffin Powell MD cc: Griffin Powell MD
[2016-06-19] MEDS ORDERED: DEMADEX PO SCH (09:00)
== END 2016-06-18 15:50 ==
LOC: ED 21:27 → 4N 06-11 03:55 → SUATTDRO 06-11 03:55
PROVIDERS: ATTEND Internal Medicine

== ENCOUNTER 2016-10-19 15:01 | Inpatient (IN) ==
--- NOTE | 2016-10-19 15:31 | PROVIDER DOCUMENTATION ---
HPI-Respiratory General - General Chief Complaint: Shortness of Breath Stated Complaint: sob abnormal labs Time Seen by Provider: 10/19/16 15:02 Source: patient, RN/MD, [facility] records, old records Allergies/Adverse Reactions: Patient Allergies Allergy/AdvReac Type Severity Reaction Status Date / Time Sulfa (Sulfonamide Allergy Intermediate RASH Verified 06/10/16 21:39 Antibiotics) [Sulfa(Sulfonamide Antibiotics)] spironolactone Allergy hyperkalemi Verified 06/10/16 21:39 a Home Medications: Home Medication List Medication Instructions Recorded Confirmed Last Taken Type Topiramate [Topamax] 25 mg PO QHS 01/31/12 06/11/16 06/09/16 21:00 History Albuterol 2.5MG/Ipratrop 0.5MG 3 ml INH Q4-6H PRN PRN #30 neb 04/16/15 06/11/16 06/08/16 09:00 Rx [Duoneb (A & A)] Insulin Detemir [Levemir] 40 unit SUBQ BID #1 insuln.pen 08/06/15 06/11/1606/10 09:00 Rx Levothyroxine [Synthroid] 75 microgm PO DAILY #30 tablet 09/19/15 06/11/1606/10 05:00 Rx Budesonide/Formoterol Fumarate 1 puff INH BID 12/04/15 06/11/16 06/10/16 09:00 History [Symbicort 160-4.5 Mcg Inhaler] Guaifenesin [Mucinex] 600 mg PO BID 12/04/15 06/11/16 06/10/16 17:00 History Folic Acid 1 mg PO DAILY 12/18/15 06/11/16 06/10/16 08:00 History Omeprazole [Prilosec] 40 mg PO DAILY 01/07/16 06/11/16 06/10/16 05:00 History Metformin E.r. [Glucophage Xr] 1,000 mg PO BID 01/09/16 06/11/16 06/10/16 17:00 History Sitagliptin Phosphate [Januvia] 100 mg PO DAILY 01/09/16 06/11/16 06/10/16 08: 00 History Atorvastatin Calcium [Lipitor] 40 mg PO DAILY 12/10/2406/11/16 06/10/16 21:00 History Metoprolol Succinate E.r. [Toprol 25 mg PO DAILY #0 tablet 01/28/16 06/11/1604/24 08:00 Rx Xl] Pramipexole [Mirapex] 0.75 mg PO QHS #30 tablet 01/28/16 06/11/16 06/09/16 21: 00 Rx Nystatin Powder [Mycostatin Powder] 1 applicatn TOP BID 04/01/16 06/11/16 17:00 History Diclofenac 1% Gel [Voltaren 1% Gel] 4 gm TOP 4XDAY #0 tube 04/08/16 06/11/1604/24 09:00 Rx Flavoxate [Urispas] 100 mg PO Q6H PRN PRN #30 tablet 04/08/16 06/11/16 Unknown Rx Duloxetine [Cymbalta] 40 mg PO QAM 04/30/16 06/11/16 06/10/16 08:00 History Melatonin/Pyridoxine [Melatonin 3 1 each PO HS 04/30/16 06/11/16 06/09/16 21:00 History mg Tablet] Metoclopramide HCl [Reglan] 5 mg PO TID 04/30/16 06/11/16 06/10/16 17:00 History Ondansetron HCl [Zofran] 4 mg PO Q6H PRN PRN 04/30/16 06/11/16 04/10/16 History Potassium Chloride 10 meq PO DAILY 04/30/16 06/11/16 06/08/16 09:00 History Insulin Aspart [Novolog] 0 unit SQ DIRECTED PRN PRN 06/08/16 06/11/16 17:00 History Lactulose 30 ml PO DAILY 06/08/16 06/11/16 06/10/16 09:00 History Losartan Potassium 50 mg PO DAILY 06/08/16 06/11/16 06/10/16 09:00 History Multivits,Ca,Minerals/Iron/FA 1 each PO DAILY 06/08/16 06/11/16 06/10/16 08:00 History [Thera-M Tablet] Protein Hydrolysate,Milk [Liquid 300 ml PO BID 06/11/16 06/11/1606/10/17 17:00 History Protein Fortifier] Alprazolam [Xanax] 0.25 mg PO Q8H PRN PRN #30 tablet 06/18/16 Unknown Rx Bisacodyl [Dulcolax] 10 mg PO DAILY #30 tablet 06/18/16 Unknown Rx Fentanyl 25 Microgm/Hr Patch 1 each TD Q72H #10 patch 06/18/16 Unknown Rx [Duragesic 25 Microgm/Hr Patch] Gabapentin [Neurontin] 300 mg PO QHS #30 capsule 06/18/16 Unknown Rx Hydrocodone/Acetaminophen [[place] 1 tab PO Q4H PRN PRN #30 tab 06/18/16 Unknown Rx 5-325 Tablet] Levofloxacin [Levaquin] 500 mg PO DAILY #7 tablet 06/18/16 Unknown Rx Tiotropium Willet Inhaler 1 puff INH RTDAILY #1 inhaler 06/18/16 Unknown Rx [Spiriva] Torsemide [Demadex] 40 mg PO DAILY #30 tablet 06/18/16 Unknown Rx - History of Present Illness-Resp Nature of Presenting Problem: 70 year old morbidly obese WF [facility] from [facility] with c/o abnormal labs , shortness of breath, abdominal pain and nausea. pt reports she had labs drawn 3 days ago and they came back today with elevated potassium, BUN, creat. pt reports she has been short of breath more than normal for several days with associated abdominal pain, nausea, fatigue, weakness. during H&P, with pt sitting forward she quickly develop increased shortness of breath which improved with rest. abdominal pain is diffuse nonfocal Review of Systems - Adult - REVIEW OF SYSTEMS - ADULT Constitutional: reports: see HPI, fatique, other (pt unaware of weight loss or weight gain). denies: chills, fever Eyes: reports: no symptoms reported. denies: discharge, blurred vision, double vision Ears, Nose, Mouth & Throat: reports: no symptoms reported. denies: ear discharge, ear pain, nose pain, loose teeth Cardiovascular: reports: see HPI, edema, poor circulation. denies: chest pain, palpitations, syncope Respiratory: reports: see HPI, dyspnea on exertion, shortness of breath, wheezing. denies: chronic cough, cough Gastrointestinal: reports: see HPI, abdominal pain, constipation, diarrhea, nausea. denies: hematemesis, poor appetite, rectal bleeding, vomiting Genitourinary: reports: no symptoms reported. denies: dysuria, hematuria, urgency Musculoskeletal: reports: no symptoms reported. denies: bone pain, joint pain, joint swelling, neck pain Integumentary: reports: no symptoms reported. denies: hives, itching, skin sores/ulcer Neurological: reports: no symptoms reported. denies: dizziness/vertigo, syncope Psychiatric: reports: see HPI, anxiety, anti-depressant use, depression Endocrine: reports: no symptoms reported Hematologic/Lymphatic: reports: no symptoms reported Allergic/Immunologic: reports: no symptoms reported All Other Systems: Reviewed and Negative Past History - Adult - PAST MEDICAL HISTORY-ADULT Review of Records: reports: Old Records Reviewed, Nursing Assessment Review, Medications Reviewed, Social history reviewed & non-contributory. Major Childhood Illnesses: reports: denies history Cardiovascular: reports: A-Fib, CAD, CHF, HTN, heart valve problem (MVP), hyperlipidemia Respiratory: reports: COPD, sleep apnea Gastrointestinal: reports: GERD Obstetrical/Gynecological: reports: denies history Genitourinary: reports: denies history Musculoskeletal: reports: arthritis, chronic pain, fibromyalgia Neurological: reports: other (neuropathy) Psychiatric: reports: anxiety, depression Endocrine/Immune: reports: Diabetes, thyroid disorder Diabetes Type: Type 2 Diabetes controlled by:: PO Meds Other Conditions: reports: denies history - PRIOR SURGERIES/PROCEDURES Surgical/Procedure History: reports: breast, other (arthroscopy ) - PRIOR HOSPITALIZATIONS Prior Hospitalizations: reports: for similar symptoms - IMMUNIZATION STATUS Childhood Immunizations: See Nurse Assessment Flu Vaccine: See Nurse Assessment - FAMILY HISTORY Family History: reviewed, not pertinent - SOCIAL HISTORY Smoking: quit greater than 1 year, cigarettes Substance Use: none/never Alcohol Use Frequency: never Physical Exam-General - PHYSICAL EXAM-ADULT Initial Vital Signs Reviewed: Yes - CONSTITUTIONAL General Appearance: appears well, alert, mild distress, moderate distress, obese . negative: no apparent distress, severe distress - EYES Eyes: pale conjunctivae. negative: pink conjunctivae, sclera injected, scleral icterus, subconjunctival hemorrhage - HEAD, EARS, NOSE, MOUTH & THROAT HENMT: normocephalic/atraumatic, moist mucous membranes, normal ENT inspection - NECK Neck: non-tender, full range of motion, supple, normal inspection - RESPIRATORY Respiratory: respiratory distress (mild), decreased breath sounds, rales, increased rate. negative: accessory muscle use - CARDIOVASCULAR Cardiovascular: other (+4 pitting edema to BLE from toes to groin region; toes to bilateral feet purple in color, positive for blanching, brisk cap refill). negative: no edema - GASTROINTESTINAL (ABDOMEN) Abdominal Exam: distended, other (morbidly obese with large rotund abdomen, firm to palpation, nontender. pt reports this is her normal size abdominal girth.). negative: guarding, rigid, tenderness - MUSCULOSKELETAL Back Exam: normal inspection Extremity: no calf tenderness, normal capillary refill, pedal edema, swelling. negative: normal range of motion, non-tender, normal gait (pt in nonambulaory at baseline), normal inspection, no pedal edema, abnormal NV exam, calf tenderness, erythema, pulse deficit, slow capillary refill, tenderness Peripheral Pulses: radial (R): 2+, radial (L): 2+, dorsalis-pedis (R): 1+, dorsalis-pedis (L): 1+ - SKIN Integumentary: normal turgor, warm/dry, cyanosis (cyanotic toes), pallor. negative: petechiae, purpura, rash, swelling, tenderness, warm - NEUROLOGIC Neurologic: grossly normal, no motor/sensory deficits - PSYCHIATRIC Psych/Mental Status: normal mood/affect, normal thought content, normal thought process, oriented x 3 Progress - PLAN OF CARE/RESULTS Progress/Plan/Lab Results: Vital Signs - 8 hr 10/19/16 15:10 10/19/16 15:46 10/19/16 16:55 Temperature 98 F Pulse Rate 79 79 73 Respiratory Rate 21 20 21 Blood Pressure 167/127 167/127 242/227 O2 Sat by Pulse Oximetry 86 L 91 L 98 Laboratory Results - last 24 hr 10/19/16 10/19/16 10/19/16 15:30 15:30 15:30 WBC 8.72 RBC 2.92 L Hgb 9.1 L Hct 32.6 L MCV 111.6 H MCH 31.2 H MCHC 27.9 L RDW Std Deviation 18.7 H Plt Count 67 L MPV 9.3 Immature Gran % (Auto) 0.6 H Neut % (Auto) 72.6 Lymph % (Auto) 12.4 L Cotton % (Auto) 12.2 H Eos % (Auto) 2.1 Baso % (Auto) 0.1 Immature Gran # (Auto) 0.05 H Neut # (Auto) 6.34 Lymph # (Auto) 1.08 L Cotton # (Auto) 1.06 H Eos # (Auto) 0.18 Baso # (Auto) 0.01 PT INR PTT (Actin FS) D-Dimer 0.91 H Sodium 134 L Potassium 6.0 H* Chloride 90 L Carbon Dioxide 38 H Anion Gap 6 BUN 83 H Creatinine 1.6 H Estimated GFR/1.73 m2 32 BUN/Creatinine Ratio 52 Glucose 138 H Calculated Osmolality 296 Calcium 9.1 Magnesium 3.5 H Total Bilirubin 0.29 AST 17 ALT 12 Alkaline Phosphatase 106 H Creatine Kinase 26 Troponin T Wus-B-Qoxpsnrpaai Pept Total Protein 6.3 Albumin 3.5 Globulin 2.8 Albumin/Globulin Ratio 1.3 Plasma Lactate Acetone Level 10/19/16 10/19/16 10/19/16 15:30 15:30 15:30 WBC RBC Hgb Hct MCV MCH MCHC RDW Std Deviation Plt Count MPV Immature Gran % (Auto) Neut % (Auto) Lymph % (Auto) Cotton % (Auto) Eos % (Auto) Baso % (Auto) Immature Gran # (Auto) Neut # (Auto) Lymph # (Auto) Cotton # (Auto) Eos # (Auto) Baso # (Auto) PT 10.4 INR 0.99 PTT (Actin FS) 23.8 D-Dimer Sodium Potassium Chloride Carbon Dioxide Anion Gap BUN Creatinine Estimated GFR/1.73 m2 BUN/Creatinine Ratio Glucose Calculated Osmolality Calcium Magnesium Total Bilirubin AST ALT Alkaline Phosphatase Creatine Kinase Troponin T < 0.010 Vlx-Y-Nzrtprndpyi Pept 4417 H Total Protein Albumin Globulin Albumin/Globulin Ratio Plasma Lactate Acetone Level 10/19/16 10/19/16 15:30 16:09 WBC RBC Hgb Hct MCV MCH MCHC RDW Std Deviation Plt Count MPV Immature Gran % (Auto) Neut % (Auto) Lymph % (Auto) Cotton % (Auto) Eos % (Auto) Baso % (Auto) Immature Gran # (Auto) Neut # (Auto) Lymph # (Auto) Cotton # (Auto) Eos # (Auto) Baso # (Auto) PT INR PTT (Actin FS) D-Dimer Sodium Potassium Chloride Carbon Dioxide Anion Gap BUN Creatinine Estimated GFR/1.73 m2 BUN/Creatinine Ratio Glucose Calculated Osmolality Calcium Magnesium Total Bilirubin AST ALT Alkaline Phosphatase Creatine Kinase Troponin T Gox-D-Umcfajxklhp Pept Total Protein Albumin Globulin Albumin/Globulin Ratio Plasma Lactate 1.7 Acetone Level NEGATIVE Orders Category Date Time Status Cardiac Monitoring DIRECTED Care 10/19/16 15:23 Active Rausch Cath Insertion ORDERED Care 10/19/16 15:25 Active Oxygen Therapy- ED Nursing DIRECTED Care 10/19/16 15:23 Active Saline Loc NOW Care 10/19/16 15:23 Active CHEST-PORTABLE [RAD] Stat Exams 10/19/16 15:24 Completed ACETONE SERUM [CHEM] Stat Lab 10/19/16 16:09 Completed BLOOD CULTURE [BLDCUL] Stat Lab 10/19/16 15:30 Ordered CBC WITH ELECTRONIC DIFF [HEME] Stat Lab 10/19/16 15:30 Completed CK PROFILE [SP CHEM] Stat Lab 10/19/16 15:30 Completed COMPREHENSIVE METABOLIC PANEL [CHEM] Stat Lab 10/19/16 15:30 Completed D-DIMER [CHEM] Stat Lab 10/19/16 15:30 Completed LACTATE, PLASMA [CHEM] Stat Lab 10/19/16 15:30 Completed MAGNESIUM [CHEM] Stat Lab 10/19/16 15:30 Completed PRO B-NATRIURETIC PEPTIDE Stat Lab 10/19/16 15:30 Completed PROTIME WITH INR [COAG] Stat Lab 10/19/16 15:30 Completed PTT [COAG] Stat Lab 10/19/16 15:30 Completed TROPONIN T Stat Lab 10/19/16 15:30 Completed UA NIMS W/REFLEX CULT [URINALYSIS] Stat Lab 10/19/16 15:25 Uncollected Dextrose 50% Syringe [D50w Syringe] Med 10/19/16 17:03 Discontinued 50 ml IV NOW ONE Furosemide [Lasix] Med 10/19/16 17:01 Discontinued 80 mg IV NOW ONE Insulin Human Regular [Humulin R] Med 10/19/16 17:03 Discontinued 10 unit IV NOW ONE EKG [EKG] Stat Ther 10/19/16 15:23 Ordered 1705: Received chemistry, K 6.0, Dr. Arnett notified, will administer regular insulin, D50 and lasix, admit for ARF, hyperkalemia, HR. Laboratory Tests 10/19/16 10/19/16 10/19/16 15:30 15:30 15:30 WBC 8.72 RBC 2.92 L Hgb 9.1 L Hct 32.6 L MCV 111.6 H MCH 31.2 H MCHC 27.9 L RDW Std Deviation 18.7 H Plt Count 67 L MPV 9.3 Immature Gran % (Auto) 0.6 H Neut % (Auto) 72.6 Lymph % (Auto) 12.4 L Cotton % (Auto) 12.2 H Eos % (Auto) 2.1 Baso % (Auto) 0.1 Immature Gran # (Auto) 0.05 H Neut # (Auto) 6.34 Lymph # (Auto) 1.08 L Cotton # (Auto) 1.06 H Eos # (Auto) 0.18 Baso # (Auto) 0.01 PT INR PTT (Actin FS) D-Dimer 0.91 H Sodium 134 L Potassium 6.0 H* Chloride 90 L Carbon Dioxide 38 H Anion Gap 6 BUN 83 H Creatinine 1.6 H Estimated GFR/1.73 m2 32 BUN/Creatinine Ratio 52 Glucose 138 H Calculated Osmolality 296 Calcium 9.1 Magnesium 3.5 H Total Bilirubin 0.29 AST 17 ALT 12 Alkaline Phosphatase 106 H Creatine Kinase 26 Troponin T Oog-X-Jqlqhrumwnc Pept Total Protein 6.3 Albumin 3.5 Globulin 2.8 Albumin/Globulin Ratio 1.3 Plasma Lactate Acetone Level 10/19/16 10/19/16 10/19/16 15:30 15:30 15:30 WBC RBC Hgb Hct MCV MCH MCHC RDW Std Deviation Plt Count MPV Immature Gran % (Auto) Neut % (Auto) Lymph % (Auto) Cotton % (Auto) Eos % (Auto) Baso % (Auto) Immature Gran # (Auto) Neut # (Auto) Lymph # (Auto) Cotton # (Auto) Eos # (Auto) Baso # (Auto) PT 10.4 INR 0.99 PTT (Actin FS) 23.8 D-Dimer Sodium Potassium Chloride Carbon Dioxide Anion Gap BUN Creatinine Estimated GFR/1.73 m2 BUN/Creatinine Ratio Glucose Calculated Osmolality Calcium Magnesium Total Bilirubin AST ALT Alkaline Phosphatase Creatine Kinase Troponin T < 0.010 Rgn-O-Geivnennrlq Pept 4417 H Total Protein Albumin Globulin Albumin/Globulin Ratio Plasma Lactate Acetone Level 10/19/16 10/19/16 15:30 16:09 WBC RBC Hgb Hct MCV MCH MCHC RDW Std Deviation Plt Count MPV Immature Gran % (Auto) Neut % (Auto) Lymph % (Auto) Cotton % (Auto) Eos % (Auto) Baso % (Auto) Immature Gran # (Auto) Neut # (Auto) Lymph # (Auto) Cotton # (Auto) Eos # (Auto) Baso # (Auto) PT INR PTT (Actin FS) D-Dimer Sodium Potassium Chloride Carbon Dioxide Anion Gap BUN Creatinine Estimated GFR/1.73 m2 BUN/Creatinine Ratio Glucose Calculated Osmolality Calcium Magnesium Total Bilirubin AST ALT Alkaline Phosphatase Creatine Kinase Troponin T Ghm-E-Gpmxqrpdvqe Pept Total Protein Albumin Globulin Albumin/Globulin Ratio Plasma Lactate 1.7 Acetone Level NEGATIVE Orders Category Date Time Status Cardiac Monitoring DIRECTED Care 10/19/16 15:23 Active Rausch Cath Insertion ORDERED Care 10/19/16 15:25 Active Oxygen Therapy- ED Nursing DIRECTED Care 10/19/16 15:23 Active Saline Loc NOW Care 10/19/16 15:23 Active CHEST-PORTABLE [RAD] Stat Exams 10/19/16 15:24 Completed ACETONE SERUM [CHEM] Stat Lab 10/19/16 16:09 Completed BLOOD CULTURE [BLDCUL] Stat Lab 10/19/16 15:30 Ordered CBC WITH ELECTRONIC DIFF [HEME] Stat Lab 10/19/16 15:30 Completed CK PROFILE [SP CHEM] Stat Lab 10/19/16 15:30 Completed COMPREHENSIVE METABOLIC PANEL [CHEM] Stat Lab 10/19/16 15:30 Completed D-DIMER [CHEM] Stat Lab 10/19/16 15:30 Completed LACTATE, PLASMA [CHEM] Stat Lab 10/19/16 15:30 Completed MAGNESIUM [CHEM] Stat Lab 10/19/16 15:30 Completed PRO B-NATRIURETIC PEPTIDE Stat Lab 10/19/16 15:30 Completed PROTIME WITH INR [COAG] Stat Lab 10/19/16 15:30 Completed PTT [COAG] Stat Lab 10/19/16 15:30 Completed TROPONIN T Stat Lab 10/19/16 15:30 Completed UA NIMS W/REFLEX CULT [URINALYSIS] Stat Lab 10/19/16 15:25 Uncollected Dextrose 50% Syringe [D50w Syringe] Med 10/19/16 17:03 Discontinued 50 ml IV NOW ONE Furosemide [Lasix] Med 10/19/16 17:01 Discontinued 80 mg IV NOW ONE Insulin Human Regular [Humulin R] Med 10/19/16 17:03 Discontinued 10 unit IV NOW ONE EKG [EKG] Stat Ther 10/19/16 15:23 Ordered Vital Signs - 24 hr 10/19/16 15:10 10/19/16 15:46 10/19/16 16:55 Temperature 98 F Pulse Rate 79 79 73 Respiratory Rate 21 20 21 Blood Pressure 167/127 167/127 242/227 O2 Sat by Pulse Oximetry 86 L 91 L 98 Result Diagrams: 10/19/16 15:30 10/19/16 15:30 - REASSESSMENT Reassessment #1 Time Reassessed: 17:25 Status: other (notified patient of admission for ARF, CHF, verbalized understanding and agrees.) - XRAY 1 XRAY Study: Chest Impression: Abnormal (stable cardiomegaly, mild central vascular congestion, hazy atelectasis at left base. per Dr. Quijano) - CONSULTS/PCP/HOSPITALIST Notification #1 *Consult/PCP/Hospitalist*: Chris Time Discussed: 17:23 Consult Disposition: Will see in ED, Admit (Dr. Joe will be attending.) Departure - Departure Date of Disposition Decision: 10/19/16 Time of Disposition Decision: 15:29 DIAGNOSIS: Hyperkalemia CHF (congestive heart failure) Qualifiers: Congestive heart failure type: unspecified congestive heart failure type Congestive heart failure chronicity: acute on chronic Qualified Code(s): I50.9 - Heart failure, unspecified ARF (acute renal failure) Qualifiers: Acute renal failure type: unspecified Qualified Code(s): N17.9 - Acute kidney failure, unspecified Disposition: ADMITTED INPATIENT 09 Certified Medical Emergency: Emergent Condition: Stable Referrals and Follow-Ups: Roberto Cherry MD [Primary Care Provider] - - Critical Care Note This patient required my direct & personal management of CC.: No Attestation - Physician/ RUDY Attestation Patient care was provided by Advanced Practice Provider:: Yes Advanced Practice Provider:: Deepak Marques Advanced Practice Provider documentation review:: The Mid-level provider documentation, treatment plan and medical decision making was reviewed by the physician who agrees with all treatment and medical decision making by the [facility]. The physician spent face to face time with patient:: No Advanced Practice Provider documentation review:: Supervising physician onsite and consulted in the evaluation and care of this patient. The physician did not have a face to face encounter with the patient.
--- NOTE | 2016-10-19 15:46 | Diag Imaging Result Doc PS360 ---
EXAM: CHEST-PORTABLE - 10/19/2016 HISTORY: shortness of breath TECHNIQUE: Portable chest 3:42 PM COMPARISON: 06/16/2016 FINDINGS: There is stable cardiomegaly. There is mild prominence of central vascular markings which appears mildly decreased. There is some haziness at the left base which may relate to atelectasis. There is no dense consolidation, substantial pleural effusion, or pneumothorax identified. IMPRESSION: Stable cardiomegaly. Mild central vascular congestion. Hazy atelectasis at left base. Electronically signed by Idris Olivarez 10/19/2016 3:43 PM
[2016-10-19 16:27] LABS: INR 0.99; PROTIME 10.4 Seconds (9.2-11.7); PTT 23.8 Seconds (22.0-36.0)
[2016-10-19 16:32] LABS: BASO% 0.1 % (0.0-0.8); EOS# 0.18 X1000 (0.0-0.7); EOS% 2.1 % (0.0-10.0); HEMATOCRIT 32.6 % (37.0-47.0); HEMOGLOBIN 9.1 g/dL (12.0-16.0); IMM GRAN# 0.05 X1000 (0.0-0.04); IMM GRAN% 0.6 % (0.0-0.5); LYMPH# 1.08 X1000 (1.2-3.4); LYMPH% 12.4 % (20.5-51.1); MANUAL DIFF NEEDED? NO; MCH 31.2 PG (27-31); MCHC 27.9 g/dL (33-37); MCV 111.6 FL (81-99); MONO# 1.06 X1000 (0.11-0.59); MONO% 12.2 % (1.7-9.3); MPV 9.3 FL (7.4-10.4); NEUT% 72.6 % (42.2-75.2); PLT 67 X1000 (130-400); RBC 2.92 XMIL (4.2-5.4)
[2016-10-19 16:58] LABS: ALBUMIN 3.5 g/dL (3.5-5.0); CALCIUM 9.1 mg/dL (8.8-10.2); MAGNESIUM 3.5 mg/dL (1.5-2.7); TOTAL BILIRUBIN 0.29 mg/dL (0.20-1.00); TOTAL PROTEIN 6.3 g/dL (6.3-8.3)
[2016-10-19] MEDS ORDERED: LASIX IV ONE (17:01)
[2016-10-19] MEDS ORDERED: HUMULIN R IV ONE (17:03)
[2016-10-19] MEDS ORDERED: D50W SYRINGE IV ONE (17:03)
--- NOTE | 2016-10-19 17:48 | ED EKG INTERP ---
This chart was entered by Carlos Freitas Scribe, acting as scribe for Umesh Arnett MD. EKG Interpretation - EKG Time of EKG reading by physician:: 17:47 EKG Read and Signed by:: Umesh Arnett EKG Interpretation (*Must complete 3 of following elements*): Abnormal Rate: 77 Rhythm: NSR Stryker: normal QRS: normal ND Interval: normal ST Wave: non-specific ST changes Attestation - Physician/ RUDY Attestation The physician spent face to face time with patient:: No Advanced Practice Provider documentation review:: Supervising physician onsite and consulted in the evaluation and care of this patient. The physician did not have a face to face encounter with the patient. This chart was documented by the indicated scribe, (Carlos Freitas Scribe) and accurately reflects the services I performed and decisions made by me, Umesh Arnett MD, as attested by the provider's signature.
[2016-10-19 18:32] LABS: URINE CULTURE NEEDED? NO; URINE MICRO REVIEW NEEDED? NO; URINE SOURCE CLEAN CATCH
[2016-10-19 18:39] LABS: BILIRUBIN URINE NEGATIVE (NEGATIVE); BLOOD URINE NEGATIVE (NEGATIVE); COLOR YELLOW; GLUCOSE URINE NEGATIVE (NEGATIVE); LEUKOCYTES URINE NEGATIVE (NEGATIVE); NITRITE URINE NEGATIVE (NEGATIVE); PH URINE 6.5; PROTEIN URINE NEGATIVE (NEGATIVE); SP GRAVITY URINE 1.011; TURBIDITY URINE CLEAR (CLEAR); UROBILINOGEN URINE NORMAL (NORMAL)
[2016-10-19 18:40] LABS: UR EPITHELIAL CELLS <10 /HPF (<10); URINE BACTERIA NEGATIVE /HPF; URINE RBC <10 /HPF (<10); URINE WBC <10 /HPF (<10)
--- NOTE | 2016-10-19 20:00 | HISTORY AND PHYSICAL ---
PRIMARY CARE DOCTOR: Roberto Cherry MD The patient is a resident of [facility] since 06/15/2016. PRESENTING COMPLAINT: Shortness of breath. HISTORY OF PRESENTING COMPLAINT: Ms. Peck is a 70-year-old female, who has been in and out of the hospital multiple times. This is about the 4th admission for this year. Last admitted on 06/11/2016 and discharged on 06/18/2016 apparently for shortness and fluid overload. The patient has a medical history of chronic diastolic heart failure, diabetes mellitus, sleep apnea, chronic COPD, patient is on home 2 oxygen, hypertension, dyslipidemia. Presented this time because of progressively worsening shortness of breath. The patient refers that since June, she has actually not been able to be mobile and she has been extremely bed-bound, but for the past 3 or 4 days shortness of breath has been progressively getting worse, associated with orthopnea and PND. Patient denies any chest pain. According to her, laboratory work was done because of the symptoms last Wednesday, and she was called this morning and told that there were some abnormal laboratories so she needed to come to the emergency department. When she presented to the emergency department, she was found to have a critical potassium was 6 which was treated urgently. PAST MEDICAL HISTORY: 1. Chronic diastolic heart failure. 2. Diabetes mellitus. 3. Morbid obesity. 4. Hypertension. 5. Dyslipidemia. 6. COPD on home O2 oxygen. 7. Sleep apnea on BiPAP. HOME MEDICATION: List has been reviewed. PAST SURGICAL HISTORY: 1. Breast reduction. 2. Left arthroscopic knee surgery. 3. Left thigh debridement secondary to MRSA pneumonia. SOCIAL HISTORY: Patient is a resident of [facility] in [place]. Denies alcohol or smoking. FAMILY HISTORY: Positive for father with colon cancer with metastasis to the liver. Also diabetes mellitus and hypertension. ALLERGIES: Sulfa and spironolactone. REVIEW OF SYSTEMS: Fourteen point review of system conducted with the patient is unremarkable except what we have in the HPI. Specifically, patient denies any chest pain. No cough and no sputum production. Denies any fever or chills. The patient denies any urinary symptoms. No diarrhea. PHYSICAL EXAMINATION: VITAL SIGNS: Blood pressure is 118/54, pulse is 73, respiration is 21, temperature is 98 degrees. Patient presented with O2 saturation of 86. GENERAL: Ms. Peck is a 70-year-old female. She was propped up in bed. She was in mild respiratory distress. The patient is seen with rhythmic jerking movements of both upper extremities intermittently. HEENT: Mucosa is pink and moist. Anicteric. Acyanotic. Head is normocephalic and atraumatic. NECK: Supple. The patient has a very large neck. I could not appreciate any JVD. LUNGS: Air entry is bilaterally reduced. There are diffuse bilateral crepitations. There is no accessory muscle use. CARDIOVASCULAR: Regular rate and rhythm. There is about 2/6 PS murmur radiating to the carotid. No gallops. ABDOMEN: Distended, nontender, bowel sounds are present. Could not appreciate any hepatosplenomegaly. There is a lot of edema on the lateral aspect of the abdominal wall as well as the chest wall. EXTREMITIES: About 4+ pedal edema. Distal pulses are hardly perceptible and patient has some purplish discoloration of both lower extremities and they are both cold consistent with hypoperfusion. NEUROLOGIC: The patient is awake, alert, oriented x4. Cortical functions seems to be intact. Executive functions are intact. Sensation is intact bilaterally. Motor is 5/5 in all 4 extremities. Cranial nerves 2-12 have been grossly examined and are unremarkable. PSYCHIATRIC: Patient is calm, very cooperative. Has good insight and judgment. LABORATORY DATA: WBC is 8.72, hemoglobin is 9.1, platelet count of 67,000. This is chronic. Sodium is 134, potassium is 6, chloride 90, bicarb 38. BUN is 83, creatinine is 1.6. Glucose is 138. IMAGING STUDIES: A chest x-ray was done which shows stable cardiomegaly, mild central vascular congestion. Some hazy atelectasis at the left base. An EKG shows normal sinus rhythm with some mild some T-wave inversions in the inferolateral leads which is not new when you compare to previous EKGs. Review of patient echocardiogram which was done [facility] 03/31/2016 shows ejection fraction of 55% with end-diastolic dimension of 5.8. There was a mild tricuspid regurgitation. However, the RV systolic pressure was only 30. ASSESSMENT: Ms. Peck is a resident of a shelter who presents with worsening shortness of breath with evidence of fluid overload. 1. Acute hypoxemic respiratory failure with presenting saturation of 86%. We think this is likely due to pulmonary edema. 2. Tvhdi-vv-rpnpdly diastolic heart failure. 3. Fluid overload, likely secondary to diastolic heart failure as well as possible pulmonary hypertension, as well as possible cor pulmonale. 4. Chronic microcytosis with thrombocytopenia. 5. Hyperkalemia. Of note the patient was taking some potassium pills at the shelter. This has been discontinued. 6. Myoclonic jerks, likely medication related. Patient is on a lot of sedatives and neuropathic medications. We are going to discontinue some of them and renally dose the rest. 7. Hypothyroidism. We will continue with the medication, Synthroid. 8. Dilated and mild concentric hypertrophic cardiomyopathy with biventricular enlargement on echocardiogram noted. 9. Sleep apnea. Patient will continue using her CPAP here in hospital. PLAN: So in general, think Ms. Peck is critically sick, has critical hyperkalemia as well as the excess fluid overload. We are going to admit her in CIC or ICU. The patient has been given acute management for the potassium. We will recheck on this 4 hours later and make changes accordingly. We will put her on a diuretic drip for the night, add metolazone to enhance the diuretic effect of the Lasix. We will consult Nephrology and Cardiology in the morning to help with the management of the patient. We will continue with sliding scale for the diabetes management. cc: Francois Joe MD MTDJani
[2016-10-19] MEDS: HEPARIN SUBQ SCH (21:41)
[2016-10-19] MEDS: ZAROXOLYN PO SCH (21:41)
[2016-10-19] MEDS: NORCO-7.5 PO PRN (21:43)
[2016-10-19] MEDS: MIRAPEX PO SCH (21:43)
--- NOTE | 2016-10-20 05:18 | EKG Report ---
Test Performed on : 10/19/2016 5:30:36 PM Test Reason : Chest Pain Blood Pressure : / mmHG Vent. Rate : 077 BPM Atrial Rate : 077 BPM P-R Int : 140 ms QRS Dur : 076 ms QT Int : 372 ms P-R-T Axes : 045 010 -47 degrees QTc Int : 420 ms Normal sinus rhythm. T wave abnormality, consider anterior ischemia Abnormal ECG When compared with ECG of 10-JUN-2016 21:39, No significant change was found Unconfirmed Result
[2016-10-20 05:41] LABS: INR 0.98; PROTIME 10.3 Seconds (9.2-11.7)
[2016-10-20 05:56] LABS: ALBUMIN 3.4 g/dL (3.5-5.0); BASO% 0.1 % (0.0-0.8); CALCIUM 8.9 mg/dL (8.8-10.2); EOS# 0.18 X1000 (0.0-0.7); EOS% 2.1 % (0.0-10.0); HEMATOCRIT 33.4 % (37.0-47.0); HEMOGLOBIN 9.3 g/dL (12.0-16.0); IMM GRAN# 0.03 X1000 (0.0-0.04); IMM GRAN% 0.4 % (0.0-0.5); LYMPH# 0.84 X1000 (1.2-3.4); LYMPH% 9.9 % (20.5-51.1); MAGNESIUM 3.5 mg/dL (1.5-2.7); MANUAL DIFF NEEDED? YES; MCH 30.9 PG (27-31); MCHC 27.8 g/dL (33-37); MONO# 1.08 X1000 (0.11-0.59); MONO% 12.8 % (1.7-9.3); NEUT% 74.7 % (42.2-75.2); PLT 59 X1000 (130-400); POTASSIUM 5.9 mmol/L (3.5-5.1); RBC 3.01 XMIL (4.2-5.4); TOTAL BILIRUBIN 0.31 mg/dL (0.20-1.00); TOTAL PROTEIN 6.5 g/dL (6.3-8.3)
[2016-10-20] MEDS ORDERED: KAYEXALATE PO ONE (06:29)
[2016-10-20] MEDS: NORCO-7.5 PO PRN (07:27)
[2016-10-20] MEDS: XANAX PO PRN ×2 (07:28→21:13)
[2016-10-20 07:36] LABS: LYMPHS 5 % (21-51); MONO 7 % (1-9)
--- NOTE | 2016-10-20 07:36 | Diag Imaging Result Doc PS360 ---
EXAM: CHEST-PORTABLE INDICATION: chf TECHNIQUE: One view COMPARISON: None 12/28/2016 FINDINGS: Inspiration is suboptimal. Mild haziness at the left lung base likely representing atelectasis is unchanged. There is stable atelectasis at the mid and lower lung zone on the right as well. No new consolidations identified. Cardiac silhouette is stable. Mild pulmonary venous congestion is unchanged. IMPRESSION: Stable chest. Electronically signed by Matheus Arias 10/20/2016 7:33 AM
[2016-10-20] MEDS: SYNTHROID PO SCH (08:50)
[2016-10-20] MEDS: CYMBALTA PO SCH (08:50)
[2016-10-20] MEDS: PRILOSEC PO SCH (08:50)
[2016-10-20] MEDS: FOLIC ACID PO SCH (08:50)
[2016-10-20] MEDS: LIPITOR PO SCH (08:55)
[2016-10-20] MEDS: HEPARIN SUBQ SCH ×2 (08:56→20:15)
[2016-10-20] MEDS: TOPROL XL PO SCH (09:00)
[2016-10-20] MEDS: LASIX 100 MG in NS 90 ML IV SCH ×2 (10:30→18:05)
[2016-10-20 10:45] LABS: ALLEN TEST YES; BLOOD TYPE ARTERIAL; DRAW SITE L RADIAL; METHB 0.7 % (0.0-1.5); O2(CT) 12.5 mL/dL (15.0-23.0); PO2(98.6) 69 mmHg (60-100); SAMPLE BLOOD; SAO2 94.9 % (95.0-100.0); THB 9.6 g/dL (11.5-17.4); pH(98.6) 7.33 (7.35-7.45)
[2016-10-20 10:46] LABS: MODALITY VENTIMASK
[2016-10-20 10:47] LABS: PCO2(98.6) 87 mmHg (35-45)
[2016-10-20] MEDS: ZAROXOLYN PO SCH (11:05)
--- NOTE | 2016-10-20 14:04 | ECHO REPORT ---
ORDER DATE: 10/19/2016 STUDY QUALITY: 1. Technically suboptimal study. 2. Very poor acoustic window. ECHOCARDIOGRAPHIC MEASUREMENTS: 1. Interventricular septum 1. 2. Left ventricular posterior wall 1. 3. Diastolic diameter 6. 4. Left atrium 3.3. 5. Aorta 3.5. FINDINGS: 1. Mobile mass was seen on the aortic valve. It was not well characterized. I would recommend transesophageal echocardiogram. 2. Tricuspid valve was normal. Mitral valve was normal. Pulmonic valve not well visualized. 3. Peak velocity across the aortic valve was 2.2 m/second. 4. There is no aortic stenosis. 5. There is mild mitral regurgitation. Mild tricuspid regurgitation. Peak velocity across the tricuspid valve was 3 m/second. Pulmonary artery systolic pressure 46 mmHg. 6. Endocardium not well visualized in all views. Definity was used to assess left ventricular systolic function. Left ventricle cavity size is mildly dilated. Estimated ejection fraction is 55% to 60%. CONCLUSIONS: Mobile mass noted in the aortic valve associated with mild aortic regurgitation, not well characterized. I would recommend transesophageal echocardiogram. cc: MD Francois Blum MD
[2016-10-20] MEDS ORDERED: NS 250 ML ONE (15:31)
[2016-10-20] MEDS ORDERED: VELTASSA PO ONE (15:56)
--- NOTE | 2016-10-20 18:27 | PROGRESS NOTE ---
DATE: 10/20/2016 SUBJECTIVE: Patient reports still short of breath. She denies any chest pain. Denies any fever, chills. Now, she is using a BiPAP mask. OBJECTIVE: Vital Signs: Temperature 97.8, heart rate 76, respiratory rate 20, blood pressure 125/37, O2 saturation 96% on BiPAP machine. General examination: This is a morbidly obese and chronically ill-looking, 70-year-old female lying in bed, in no acute distress. HEENT: Head is normocephalic, atraumatic. Anicteric sclerae and pale conjunctivae. Mucous membranes moist. Neck: Supple. Not possible to evaluate JVD because of the neck girth. Cardiovascular: S1, S2 heard. No murmurs, gallops, or rubs. Regular rate and rhythm. Respiratory: Decreased air entry globally with a few bilateral crepitation. Patient is not using any accessory muscles or having work of breathing. Abdomen: Distended, but nontender to palpation. Bowel sounds present. No organomegaly. No signs of peritoneal irritation. There is also _ edema noted in the lateral aspect of the abdominal wall and the chest wall as well. Extremities: 4+ pitting edema in both lower extremities with some discoloration on both lower extremities compatible with the venous stasis hyperperfusion. Neurologic: Patient is alert and awake x3. Moves 4 extremities. Cranial nerves 2-12 grossly normal. LABORATORY DATA: White cell count 8.46, hemoglobin 9.3, hematocrit 33.4, platelets at 59,000 with ABG today shows pH 7.33 with pCO2 87, PO2 of 69. BMP remarkable for potassium 5.97, creatinine 1.4. ASSESSMENT AND PLAN: 1. Acute hypoxemic and hypercapnic respiratory failure. The patient has been started on BiPAP. CO2 checked this morning was 86. This is nothing new for this patient. In any case, the patient has been started on BiPAP and we will check BMP tomorrow as well and pulmonary will be consulted. 2. Acute on chronic diastolic heart failure. The patient has been started on furosemide. Cardiology has been consulted. In the echo done here it looks like there is a mass near to aortic valve. Family reported she has an epidural abscess 2 years ago approximately that was not drained by neurosurgery and received IV antibiotics for few weeks. According to cardiology it looks like an old vegetation. Inflammatory markers are negative. Although the echo imaging is not good because of poor window because patient is obese the echo also suggest mild to moderate degree of aortic insufficiency. Ideally we will need an transesophageal echo but considering current patient's respiratory status she may need to be intubated to do that procedure. Will hold it for now but in case patient got intubated because of respiratory failure we will call cardiology to proceed with SAMANTHA. 3. Obesity hypoventilation syndrome. This is definitely secondary to obesity. At this time, we are going to continue with BiPAP machine. 4. Hyperkalemia. Potassium is still high so we are going to provide diltiazem for this patient. The patient on the list of medication was on home potassium pills and also furosemide. Of course, those have been discontinued. 5. Myoclonic jerks, likely medication related. Now that patient is much better , we will continue with same management. 6. Hypothyroidism. We will continue with the home doses of Synthroid. 7. Dilated mild concentric hypertrophic cardiomyopathy with biventricular enlargement. We have checked the echo done today and this suggests transesophageal echo because of apparently a mass near the aortic valve. We will continue to monitor this patient closely in the unit. 8. Sleep apnea. Patient will use CPAP machine at home. cc: Griffin Powell MD MTDD
[2016-10-20] MEDS ORDERED: VANCOMYCIN IV PER PHARMACY MISC SCH (20:00)
[2016-10-20] MEDS: MIRAPEX PO SCH (20:15)
[2016-10-20] MEDS ORDERED: VANCOMYCIN 1.8 GM in NS 250 ML IV SCH (21:00)
--- NOTE | 2016-10-20 21:36 | CONSULTATION ---
DATE OF CONSULTATION: 10/20/2016 CONSULTATION REQUESTED BY: Hospitalist Service. REASON FOR CONSULTATION: Shortness of breath, CHF. HISTORY: Ms. Peck is a 70-year-old female who presented to the hospital at about 3:30 p.m. yesterday, October 19, with complaints of increasing swelling of the lower extremities as well as increasing dyspnea. The patient has been staying at [facility] and Dr. Cherry has been treating her with increasing doses of diuretics. Yesterday they noted that her potassium had climbed up to 6.0 and they recommended admission to the hospital for in hospital management of her congestive state. The patient denies having chest pain. She is basically bedbound for the past 3 months. She has an attentive sister who is her power of roller operator and she visits her every other day. She had noticed some improvement just before admission as far as her swelling and her breathing with the increasing doses of diuretics, however, given the abnormality in the potassium, she agreed that it was probably best to bring her to the hospital. Initial chest x-ray done in the hospital emergency room reveals stable cardiomegaly, mild central vascular congestion, hazy atelectasis of the left base. EKG showed sinus rhythm with a rate of 77, diffuse repolarization abnormality, early transition. The patient has been given Lasix intravenously. She has diuresed a fair amount , nearly 3 L over the past 24 hours. She is on a Lasix drip. She is on a BiPAP machine. She is really not very verbal at this time. Her initial white count was 8720, hemoglobin 9.1, MCV 111. PT 10.4. D- dimer 0.91. Her BUN was 83, creatinine 1.6. Troponins were negative. Her proBNP was 4417. TSH 4.50. Plasma lactate was 1.7. Albumin was 3.5 at the time of admission. AST and ALT as well as bilirubin were all normal. Her urine was normal. PAST MEDICAL HISTORY: The patient's past history is positive for recurrent congestive heart failure, diastolic type. She has had diabetes mellitus type 2 for a long time. She has been morbidly obese. She has had obstructive sleep apnea for many years with CPAP system. She has to be on oxygen at home. She has hypertension. She has dyslipidemia. She has been diagnosed with Crohn's disease and hypothyroidism. PAST SURGICAL HISTORY: She had breast reduction, GI bleeding, left knee surgery. She has had an abscess of the left thigh that was removed in November of 2015. Around that time the patient also apparently had an epidural abscess. She was taken to [facility] and treated with antibiotics. Apparently they did not do any surgical debridement of the abscess. Over the course of the past few months the patient has had echocardiograms done in the hospital and we actually had the chance to read an echo on her back in December of 2015 that showed an enlarged left ventricle with preserved function, ejection fraction 61% with an oscillating mass, moderate to probably severe degree of aortic regurgitation. That was suspicious for endocarditis. Subsequent echo done in June of 2016 showed just about the same findings. The echo has been repeated today and again it shows the same findings with an abnormal aortic valve, enlargement of the left ventricle, preserved ejection fraction. The patient had MRSA infection of the left thigh back in 2014. SOCIAL HISTORY: [facility] She has been many years ago. She has 2 adult children and she has 1 granddaughter that is the closest person to her, however, she is not around at this time. Her power of roller operator is her sister. She is 1 of 6 siblings. The patient has never been a smoker nor a drinker. FAMILY HISTORY: Positive for colon cancer, diabetes, and hypertension. ALLERGIES: Sulfa drugs and spironolactone. MEDICATIONS: Her home medications at the time of presentation included: 1. Torsemide 40 mg daily. 2. Topamax 25 mg at bedtime. 3. Spiriva 1 puff daily. 4. Januvia 100 mg daily. 5. Mirapex 0.75 at bedtime. 6. Potassium chloride 10 mEq daily. 7. Zofran 4 mg every 6 hours. 8. Metoprolol succinate 25 daily. 9. Metoclopramide 5 mg 3 times a day. 10.Metformin 1000 twice a day. 11.Melatonin 3 mg at bedtime. 12.Losartan 15 g daily. 13.Levothyroxine 75 mcg daily. 14.Levaquin 500 daily. 15.Lactulose 30 mL daily. 16.Insulin detemir 40 units twice a day. 17.Fentanyl patch every 72 hours. 18.Alprazolam. 19.Atorvastatin. 20.Albuterol. 21.Diclofenac. 22.Cymbalta. REVIEW OF SYSTEMS: Review of systems is unobtainable. Basically she has been bedbound for the past several months. She has been in and out of the hospital. We have documented admissions to the hospital here in [place] between November 14 and December 072014 due to the abscess of the thigh, then between July 31 and August 052015 due to CHF and COPD exacerbation, between September 06 and September 19, 2015 for the same, between January 05 and January 27 because of the same, possible UTI, between March 31 and April 08 because of CHF, between May 01 and May 06 for the same, between June 11 and June 18 for the same, and after 4 months, she is back in the hospital. PHYSICAL EXAMINATION: Vital signs: Blood pressure 116/36, temperature 98.2, pulse 75, respirations 20. General: She is not very verbal at this time. She has a CPAP mask in place. She responds by nodding. Neck: Jugular venous distention is noted. Chest: Diminished breath sounds at the bases. No rales are noted. Cardiac: Heart sounds are very distant, regular and rhythmic. She does have a systolic as well as a diastolic murmur over the aortic area. Abdomen: Obese, distended. Extremities: Cool. There is diffuse edema, 2-3+, anasarca type in the upper and lower extremities. Pulses are markedly diminished. Neurologic: She has generalized weakness. She nods to questions. IMPRESSION: 1. Patient who presents with worsening respiratory failure. She has hypercarbic respiratory failure. She does have evidence of diastolic congestive heart failure compounding this respiratory failure. 2. 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 At this point in time, there is no active infection in this patient. Her C reactive protein and sedimentation rate are normal. 3. Renal dysfunction with acute renal failure and hyperkalemia. 4. Hypermagnesemia. 5. Morbid obesity. 6. Sleep apnea syndrome. 7. Diabetes mellitus type 2. RECOMMENDATIONS: At this point in time, I would suggest to keep the patient on IV Lasix. Should the patient develop the need for orotracheal intubation, then we could use that opportunity to perform a transesophageal echocardiogram to document her aortic valvular disease in a little more accurate manner. At this point in time, SAMANTHA would be ill indicated because of her significant respiratory dysfunction. The overall prognosis of this patient in general is very poor. She has been bedbound. She has had epidural abscess that was treated medically due to MRSA. I do not believe ,in my professional opinion ,that this patient is a reasonable surgical candidate for aortic valve surgery. In addition, she may have concomitant coronary artery disease making any surgical attempt on her much more complicated. She has renal dysfunction. She has CO2 retention. I do not believe this patient is likely to survive this admission especially now that she appears to be in a low cardiac output state. I explained this to her sister who was present in the room (she is the Power of [employer]). She understands. We may have to move on to pursue hospice care or palliative care on her rather than escalating her care to more aggressive life support measures. We will follow her along. Thank you for asking us to participate in her evaluation. cc: Stef Granados MD MTDD
[2016-10-20] MEDS ORDERED: MORPHINE IV ONE (21:52)
[2016-10-21] MEDS: NORCO-7.5 PO PRN ×4 (00:37→20:55)
[2016-10-21] MEDS ORDERED: PHENERGAN IV ONE (04:24)
[2016-10-21] MEDS ORDERED: SODIUM CHLORIDE 0.9% INJ ONE (04:24)
[2016-10-21 04:59] LABS: ALLEN TEST YES; BE 22.5 mmoll (-3.0-3.0); BLOOD TYPE ARTERIAL; DRAW SITE R RADIAL; METHB 0.5 % (0.0-1.5); PO2(98.6) 111 mmHg (60-100); SAMPLE BLOOD; SAO2 97.8 % (95.0-100.0); THB 8.8 g/dL (11.5-17.4); pH(98.6) 7.44 (7.35-7.45)
[2016-10-21 05:00] LABS: PCO2(98.6) 73 mmHg (35-45)
[2016-10-21 05:01] LABS: MODALITY BI PAP
[2016-10-21 05:05] LABS: AGAP 5; BUN 66 mg/dL (8-22); CALCIUM 8.5 mg/dL (8.8-10.2); CHLORIDE 94 mmol/L (98-107); COSMO 307; MAGNESIUM 3.1 mg/dL (1.5-2.7); POTASSIUM 4.1 mmol/L (3.5-5.1); SODIUM 144 mmol/L (136-145); TCO2 45 mmol/L (25-35)
[2016-10-21] MEDS: ZOFRAN IV PRN ×2 (05:30→21:02)
[2016-10-21] MEDS: SYNTHROID PO SCH (06:21)
[2016-10-21] MEDS: PRILOSEC PO SCH (06:21)
--- NOTE | 2016-10-21 08:13 | PROGRESS NOTE ---
DATE: 10/21/2016 CHIEF COMPLAINT: Shortness of breath. SUBJECTIVE: Mrs. Peck is feeling much better today. She is breathing much more comfortably. She is complaining of a headache, migraine-like. She says that she takes [place] for it. She can actually pull herself up so I can listen to her lungs. Her extremities are really warm today. She is definitely in better general appearance than yesterday. OBJECTIVE: Vital signs: Blood pressure 138/50, temperature 97.2, pulse 76, respirations 20. General: She is awake, alert, oriented, in no distress. HEENT: Hard to evaluate jugular veins. They appear to be slightly distended. Chest: Diminished breath sounds at the bases with occasional crepitance. Cardiac: Heart sounds are regular and rhythmic. I do hear a systolic murmur and also a diastolic murmur over the aortic area, 1-03/16. She does not have a gallop. Abdomen: Obese, Extremities: Show edema, but now her extremities are definitely warmer than yesterday. Neurological: She is much stronger than yesterday. She follows commands, moves four extremities. BLOOD WORK TODAY: Sodium 144, potassium 4.1, BUN 56, creatinine 0.9. Magnesium has dropped to 3.1. IMAGING: A chest x-ray has not been done this morning. TELEMETRY: Her telemetry shows sinus rhythm. IMPRESSION: 1. Patient presented with hypercarbic respiratory failure. 2. Patient with diastolic heart failure, probably aggravated by a component of aortic insufficiency that may be moderate to severe. 3. Hyperkalemia that has subsided. 4. Acute on chronic kidney insufficiency. This has improved. 5. Morbid obesity. 6, Diabetes mellitus. RECOMMENDATION: At this point in time, I would continue the present course of action. The patient is really improving. Whether or not she suffered some sort of infection that made her as sick as she was yesterday is unclear. Thus far, we do not have any positive culture. It would be a good idea to send urine for culture. Her urinalysis was actually negative for any abnormality. I would probably consider a transesophageal echocardiogram at some point in time once her respiratory status is absolutely rock stable. At this point in time, I think I would be premature to do so. I my absence, the [facility] [place]. cc: Stef Granados MD
[2016-10-21] MEDS: LIPITOR PO SCH (08:36)
[2016-10-21] MEDS: TOPROL XL PO SCH (08:36)
[2016-10-21] MEDS: FOLIC ACID PO SCH (08:36)
[2016-10-21] MEDS: ZAROXOLYN PO SCH (08:36)
[2016-10-21] MEDS: HEPARIN SUBQ SCH ×2 (08:36→20:44)
[2016-10-21] MEDS: CYMBALTA PO SCH (09:28)
--- NOTE | 2016-10-21 11:41 | PROGRESS NOTE ---
DATE: 10/21/2016 SUBJECTIVE: The patient is definitely more awake today. She reports almost no shortness of breath. She denies any chest pain or fever. Now she is on a Ventimask. OBJECTIVE: Vital Signs: Temperature 97.1 degrees, heart rate 80, respiratory rate 14, blood pressure 124/51, and O2 saturation 93% on Ventimask at 50%. General: This is a morbidly obese, chronically ill-looking 70-year-old female, looking older than her age , lying in bed, in no acute distress. HEENT: Head is normocephalic, atraumatic. Anicteric sclerae and pale conjunctivae. Mucous membranes moist. Neck: Supple. Not possible to evaluate JVD because of the neck girth. Cardiovascular: S1 and S2 heard. No murmurs, gallops, or rubs. Regular rate and rhythm. Respiratory: Decreased air entry globally with few bilateral crepitations still present, the same in comparing with yesterday. The patient is not using any accessory muscles or having work of breathing. Abdomen: Distended, but nontender to palpation. Bowel sounds present. No organomegaly. No signs of peritoneal irritation. There is also marked edema noted in the lateral aspect of the abdominal wall and chest wall. Extremities: There is 4+ pitting edema in both lower extremities with some discoloration on both lower extremities as well , compatible with hyperperfusion, but definitely better in comparing with yesterday. Yesterday the extremities were cold and now they are more warm. Neurological: The patient is more alert and awake. Moves 4 extremities. Cranial nerves 2 through 12 grossly normal. LABORATORY DATA: The BMP showed creatinine 0.9, with potassium 4.1, and ABG shows pH 7.44 with pCO2 of 73. ASSESSMENT AND PLAN: 1. Acute hypoxemic hypercarbic respiratory failure. The patient has been started BiPAP since admission and now she is doing fine. Her pCO2 has dropped to 73 from 86 yesterday. At this point, we are going to continue with the BiPAP, and we are going to give her some breaks when we can use a Ventimask. The patient should use the BiPAP overnight. Pulmonary has been consulted, and we will follow their recommendations. 2. Acute on chronic diastolic heart failure. The patient currently is on furosemide drip. Cardiology has been consulted. The condition is getting better. This condition is definitely aggravated by a component of aortic insufficiency. The echocardiogram that we had done yesterday is not very helpful because of the poor acoustic window for this patient because this patient is obese. In any case, according to them, we may need to do a transesophageal echocardiogram when the patient is more stable. It is not required at this time. At this point, we are going to continue with the same management. 3. Obesity hypoventilation syndrome. The patient is on BiPAP. We will continue with the same management. 4. Hyperkalemia. This condition is completely resolved. 5. Hypothyroidism. We will continue home doses of Synthroid. 6. Dilated mild concentric hypertrophic cardiomyopathy with biventricular enlargement. As we mentioned before, the echocardiogram was not conclusive. It showed a small mass near the aortic valve that needs to be checked later on during her hospitalization. The patient is not stable to undergo any transesophageal echocardiogram yet. 7. Obstructive sleep apnea. The patient will use BiPAP machine while she is in the hospital. 8. JAMIE. Patient renal function is back to normal. Will continue checking BMP daily. DISPOSITION: The patient is going to be transferred to [facility] unit today. cc: Griffin Powell MD MTDD
[2016-10-21 13:22] LABS: HEMOGLOBIN A1C 4.9 % (4.8-6.0)
[2016-10-21] MEDS: XANAX PO PRN (14:00)
[2016-10-21] MEDS: LASIX 100 MG in NS 90 ML IV SCH (14:01)
[2016-10-21 18:06] LABS: UR CREATININE 21.9 mg/dL (11-20); UR PROTEIN 7.1 mg/dL
[2016-10-21 18:11] LABS: UR CREATININE TOTAL 1007.4 mg/24 (600-1600)
[2016-10-21] MEDS: DIAMOX IV SCH (20:44)
[2016-10-21] MEDS: MIRAPEX PO SCH (20:44)
--- NOTE | 2016-10-21 21:30 | CONSULTATION ---
DATE OF CONSULTATION: 10/21/2016 REASON FOR CONSULTATION: Acute kidney injury. HISTORY OF PRESENT ILLNESS: Mr. Peck is a 70-year-old white female who resides in a local nursing home facility. She has morbid obesity, chronic diastolic heart failure, diabetes, hypertension. She has severe COPD and requires home oxygen and BiPAP. She was brought in to the emergency room because of worsening shortness of breath and worsening swelling. She had laboratories done as an outpatient and these were abnormal and this also prompted transfer. Specifically, apparently her potassium was elevated in the outpatient setting. She was evaluated in the emergency room and her initial blood pressure was markedly elevated at 167/127 and she was hypercarbic with pCO2 of 87 with pH 7.33. With simple treatment overnight with oxygen, bronchodilators, et cetera, her creatinine has improved from 1.6 to 0.9 and her potassium has normalized as well. She remains short of breath, but has improved. PAST MEDICAL HISTORY: As above. CURRENT MEDICATIONS: Reviewed as listed. ALLERGIES: Sulfa and spironolactone. SOCIAL: Resides in [facility]. REVIEW OF SYSTEMS: Otherwise noncontributory. PHYSICAL EXAMINATION: Vital Signs: Blood pressure 121/59, heart rate 85, respiration 18, afebrile. Fluid balance negative 7 L since admission. General: She is in no acute distress. Wearing closed face mask. Skin: Warm and dry with multiple ecchymoses. Pupils are equal. Conjunctivae are pink. Oropharynx is dry. Neck: Neck veins are not appreciated. Heart: Regular. Lungs: Equal. Abdomen: Obese and soft. Extremities: 3+ edema. No clubbing or cyanosis. IMPRESSION: 1. Acute kidney injury. Resolved with treatment of her heart failure and oxygen. Likely prerenal in origin. Given that this has resolved, I will sign off. 2. Hyperkalemia. Likely secondary to poor distal tubular sodium delivery. Resolved. cc: Gustavo Yin MD
[2016-10-21] MEDS ORDERED: TUMS PO ONE (22:37)
[2016-10-22] MEDS: ZOFRAN IV PRN ×4 (01:37→21:47)
[2016-10-22] MEDS: NORCO-7.5 PO PRN ×4 (01:58→22:52)
--- NOTE | 2016-10-22 03:50 | CONSULTATION ---
DATE OF CONSULTATION: 10/21/2016 REQUESTING PHYSICIAN: Griffin Powell MD REASON FOR CONSULTATION: Respiratory failure. HISTORY OF PRESENT ILLNESS: Ms. Peck is a 70-year-old white female, never smoker, with a BMI of 50, with multiple admissions to the hospital with fluid overload, who was brought to the emergency room with increasing shortness of breath, increasing edema despite fluid restriction. The patient has been initiated on a Lasix drip and with approximately 5 L negative for 24 hours. An echocardiogram has been performed, which was a difficult study due to her body habitus, but a mobile mass on the aortic valve has been identified, worrisome for endocarditis. PAST MEDICAL HISTORY/PROBLEM LIST: 1. Morbid obesity/Pickwickian with recurrent episodes of fluid overload. 2. Diastolic heart failure. 3. Diabetes mellitus. 4. Sleep apnea on nocturnal CPAP/BiPAP. 5. Chronic hypoxemic respiratory failure. 6. Hypertension. 7. Dyslipidemia. 8. History of thigh debridement secondary to methicillin resistant staph aureus infection. 9. Status post breast reduction. 10. History of left arthroscopic knee surgery. SOCIAL HISTORY: Patient resides at [facility]. She has been bed-bound for the last several days. FAMILY HISTORY: Positive for colon cancer, hypertension, and diabetes. REVIEW OF SYSTEMS: Notable for back pain following her echocardiogram, decreased appetite, increased extremity edema, increasing shortness of breath. PHYSICAL EXAMINATION: General: Reveals a morbidly obese white female with diffuse edema. She is somnolent, but arousable and conversant. Vital Signs: Blood pressure 148/49, heart rate 85, respiration rate 18, oxygen saturation 99%. HEENT: Pupils are equal and reactive. Oropharynx is clear. Neck: Supple. Chest: Reveals distant breath sounds, which appeared clear. Cardiac Examination: Regular rate and rhythm. Distant S1 and distant S2. Soft aortic to and fro murmur. Abdomen: Obese and soft. Extremities: Reveal generalized edema. LABORATORIES: Chest x-ray yesterday revealed generous cardiac silhouette with pulmonary vascular congestion. Arterial blood gas this morning: PH 7.44, pCO2 of 73, pO2 of 111. Chemistry: Sodium 144, potassium 4.1, chloride 94, bicarbonate 45, BUN 66, creatinine 0.9. IMPRESSION: A 70-year-old with acute on chronic hypoxemic respiratory failure, acute on chronic hypercapnic respiratory failure, acute on chronic cor pulmonale, with a bacteremia versus contaminant on the blood culture, and a new mobile mass on aortic valve worrisome for endocarditis. Patient's records have been reviewed and Dr. Stef Granados feels that she is a poor surgical candidate at this juncture. RECOMMENDATIONS: 1. Continue nocturnal and p.r.n. BiPAP. 2. Continue diuretics, as tolerated. 3. Repeat blood cultures to see if the initial positive culture was a contaminant. 4. Infectious disease consultation. 5. Additional recommendations pending hospital course. cc: Roland Stanford MD
[2016-10-22] MEDS: DIAMOX IV SCH (04:32)
[2016-10-22] MEDS: PRILOSEC PO SCH (06:41)
[2016-10-22] MEDS: SYNTHROID PO SCH (06:41)
[2016-10-22 06:42] LABS: AGAP 5; BUN 51 mg/dL (8-22); CALCIUM 9.3 mg/dL (8.8-10.2); CHLORIDE 89 mmol/L (98-107); COSMO 297; MAGNESIUM 2.5 mg/dL (1.5-2.7); POTASSIUM 3.6 mmol/L (3.5-5.1); SODIUM 141 mmol/L (136-145); TCO2 47 mmol/L (25-35)
[2016-10-22] MEDS: CYMBALTA PO SCH (08:06)
[2016-10-22] MEDS: LIPITOR PO SCH (08:06)
[2016-10-22] MEDS: HEPARIN SUBQ SCH ×2 (08:07→21:50)
[2016-10-22] MEDS: TOPROL XL PO SCH (08:07)
[2016-10-22] MEDS: ZAROXOLYN PO SCH (08:07)
[2016-10-22] MEDS: FOLIC ACID PO SCH (08:07)
[2016-10-22] MEDS ORDERED: VANCOMYCIN IV PER PHARMACY MISC SCH (08:15)
[2016-10-22 08:48] LABS: ALLEN TEST YES; BE 29.8 mmoll (-3.0-3.0); BLOOD TYPE ARTERIAL; DRAW SITE L RADIAL; METHB 1.6 % (0.0-1.5); O2(CT) 11.7 mL/dL (15.0-23.0); PO2(98.6) 78 mmHg (60-100); SAMPLE BLOOD; SAO2 97.1 % (95.0-100.0); THB 8.8 g/dL (11.5-17.4); pH(98.6) 7.52 (7.35-7.45)
[2016-10-22 08:49] LABS: MODALITY VENTIMASK; PCO2(98.6) 69 mmHg (35-45)
--- NOTE | 2016-10-22 09:27 | PROGRESS NOTE ---
DATE: 10/22/2016 SUBJECTIVE: Patient is more awake today. As per nursing staff, she refused to use BiPAP overnight. Now, she is using a Ventimask. OBJECTIVE: Vital Signs: Temperature 97.1 degrees, heart rate 78, respiratory rate 20, blood pressure 122/41, O2 saturation 96% on Ventimask at 50%. General examination: This is a morbidly obese, chronically ill-looking, 70-year-old female, lying in bed in no acute distress. HEENT: Head is normocephalic, atraumatic. Neck: Supple. JVD is not possible to evaluate because of the neck girth. Cardiovascular exam: S1, S2 heard. No murmurs, gallops, or rubs. Regular rate and rhythm. Respiratory exam: Decreased air entry globally with few bibasilar crepitations, better in comparing with yesterday. Patient is not using any accessory muscles or having work of breathing. Abdomen: Distended, but nontender to palpation. Bowel sounds present. No organomegaly. No signs of peritoneal irritation. Decreased edema noted in the lateral aspect of the abdominal wall and chest wall. Extremities: 4+ pitting edema in both lower extremities with some discoloration on both lower extremities as well. Extremities are warmer today. Neurological exam: Patient is alert, awake, moves 4 extremities. Cranial nerves 2- 12 grossly normal. LABORATORY DATA: ABG shows pH 7.52, pCO2 69. BMP unremarkable with normal renal function. ASSESSMENT AND PLAN: 1. Acute hypoxemic hypercarbic respiratory failure. The patient has refused to use BiPAP machine yesterday, but surprisingly the CO2 is a little bit better in comparing with 69 today and yesterday 73. At this point, the patient has been strongly advised to use BiPAP machine at night, and she can use Ventimask or nasal cannula as tolerated in daytime. She is on home with 3-[address] Stanford from pulmonary has been consulted; we will follow his recommendations. 2. Acute on chronic diastolic heart failure. Patient is on Lasix drip. Condition is getting better. In's and out's indicate that yesterday he made 5.8 L of urine. So, we are going to continue with the same management. Physical examination disclosed definitely less volume overload. Also, in the echocardiogram as we mentioned yesterday showed vegetation that looks like it is older. Patient had a tight abscess 2 years ago secondary to methicillin-resistant Staphylococcus aureus infection. According to cardiology she may have developed endocarditis at this time and this could be like a residual mass. Inflammatory markers are negative, so I do not think this patient has any active infection. Pulmonary also has evaluated this patient and they have consulted infectious disease, Dr. Morales. We will see what he has to say. At this point, we are going to continue with Lasix drip. 3. Obesity hypoventilation syndrome. Patient is on BiPAP. We will continue with the same management. Patient advised to use BiPAP overnight. 4. Hyperkalemia, resolved. 5. Hypothyroidism. Will continue with home doses of Synthroid. 6. Dilated mild concentric hypertrophic cardiomyopathy with biventricular enlargement. Cardiology is following this patient. They recommend transesophageal echocardiogram to evaluate better the mass near to the aortic valve and also the moderate aortic insufficiency suggested by the transthoracic echocardiogram, but considering his frail respiratory status this is an exam that we do not need to do now. 7. Obstructive sleep apnea. Patient is supposed to use BiPAP machine at night. 8. Acute kidney injury. Renal function is back to normal. We will continue to check basic metabolic panel daily. 9. Disposition: Patient is going to stay here in the CIC unit today considering that she is still requiring high amounts of oxygen and she is on a Lasix drip. cc: Griffin Powell MD
[2016-10-22] MEDS: MAXIPIME 2 GM in NS 100 ML IV SCH ×2 (09:39→21:51)
--- NOTE | 2016-10-22 10:19 | CONSULTATION ---
DATE OF CONSULTATION: 10/22/2016 CONCLUSION: Dr. Hull asked me to see this patient about possible endocarditis , specifically on the most recent echocardiogram there is described a mobile mass on the aortic valve. This would certainly be in keeping with endocarditis. In addition to the echocardiogram, the patient had 2 blood cultures drawn, 1 of which is growing a coagulase-negative Staph. If this is the only organism that has grown from the 2 blood cultures and I would say it is a contaminant. If another blood culture shows coagulase negative Staph, then I would say this is a pathogen and needs to be treated. At the current time until I get every report back, I am going to treat the patient with a combination of vancomycin and cefepime. It is said to that the patient will need a transesophageal echocardiogram. Unfortunately according to Dr. Granados, to do this the patient would have to be sedated fully. Given all of her medical problems and given the fact that we are starting to treat her as if she had endocarditis, we may want to hold off trying to do the transesophageal echocardiogram. MEDICAL DISEASES: Congestive heart failure, diabetes mellitus, morbid obesity, hypertension, hyperlipidemia, COPD and sleep apnea. SURGICAL HISTORY: Positive for breast reduction, left knee arthroscopic surgery and left thigh debridement secondary to MRSA soft tissue infection. SOCIAL HISTORY: The patient lives in [facility]. She denies cigarette smoking or drinking alcoholic beverages. FAMILY HISTORY: Positive for colon cancer, which was metastatic, diabetes mellitus and hypertension. DRUG ALLERGIES: Sulfa and spironolactone. PHYSICAL EXAMINATION: Vital Signs: Temperature is 97.1 degrees, pulse 78, respirations 20, blood pressure 122/41. General: This is a morbidly obese, elderly female, who has only a slight amount of shortness of breath Head, eyes, ears, nose, and throat: I could not measure how well her vision and hearing was. She did attempt to answer questions that I asked her indicating that she could hear. I was not able to determine how good the patient's vision was. Neck: No meningismus. Lungs: Clear to auscultation. Cardiovascular: Regular heart rate. I did not hear a murmur. Abdomen: Soft and nontender. Neurologic: The patient is somewhat lethargic today. Integument: No rash noted. ASSESSMENT AND PLAN: For right now, I am going to order blood cultures and then start the patient on a combination of vancomycin and cefepime pending culture results, and if possibly a transesophageal echocardiogram can be done. I was unable to get a review of systems from the patient; she was lethargic and did not directly answer questions. cc: Rowdy Morales MD MTDD
--- NOTE | 2016-10-22 10:48 | CONSULTATION ---
DATE OF CONSULTATION: 10/22/2016 ADDENDUM: MEDICATIONS: At this time, there is no antibiotic that has been started. As mentioned above, I am going to start the patient on vancomycin and cefepime. DRUG ALLERGIES: Sulfa is the only medication that the patient is allergic to. cc: Rowdy Morales MD MTDD
--- NOTE | 2016-10-22 10:49 | CONSULTATION ---
DATE OF CONSULTATION: 10/22/2016 ADDENDUM: Patient on the had 2 blood cultures drawn. One is growing coagulase-negative staphylococcus. The other is negative. This most likely means that the positive blood culture is a contaminant. The patient today has had blood cultures drawn. If 1 of the blood cultures drawn today grows a coagulase-negative staphylococcus, then I would assume that the patient has a bacteremia with that organism and given that a vegetation was seen, I would have to say she has aortic valve endocarditis. cc: Rowdy Morales MD
[2016-10-22] MEDS: LASIX 100 MG in NS 90 ML IV SCH (11:46)
[2016-10-22] MEDS: VANCOMYCIN 1,800 MG in NS 500 ML IV SCH (11:46)
--- NOTE | 2016-10-22 20:15 | PROGRESS NOTE ---
DATE: 10/22/2016 SUBJECTIVE: Patient denies dyspnea on supplemental oxygen per mask. She denies chest discomfort. She apparently has had some inconsistent compliance with BiPAP. OBJECTIVE: Vital Signs: Blood pressure 160/69, heart rate 78 and regular. Neck: Vein distention is consistent with elevated central venous pressure. Chest: Clear to auscultation. Cardiac: Reveals a regular rate and rhythm without appreciable murmur or gallop. Extremities: Patient has significant pitting edema in both lower extremities. LABORATORY DATA: White blood cell count 8.5, hematocrit 33.4, potassium 3.6. Carbon dioxide 47, BUN 51, creatinine 0.9. IMPRESSION: 1. [id number] heart failure with normal left ventricular ejection fraction. This appears to be predominantly massive right-sided heart failure in the setting of morbid obesity and obstructive sleep apnea. Patient demonstrates significant hypercapnia. 2. Yqzki-vz-[id number] renal dysfunction. This is improved with diuresis and likely improvement in cardiac performance. 3. Morbid obesity. 4. Diabetes mellitus. 5. Significant degenerative joint disease of the knees. Patient has not ambulated several months. RECOMMENDATIONS: 1. Continue diuresis with intravenous Lasix drip. 2. Add acetazolamide. cc: Lio Banda MD
[2016-10-22] MEDS: XANAX PO PRN (21:50)
[2016-10-22] MEDS: MIRAPEX PO SCH (21:51)
[2016-10-22] MEDS: DIAMOX PO SCH (21:51)
[2016-10-23 05:19] LABS: ALLEN TEST YES; BE 27.9 mmoll (-3.0-3.0); BLOOD TYPE ARTERIAL; DRAW SITE R RADIAL; O2(CT) 13.2 mL/dL (15.0-23.0); PO2(98.6) 82 mmHg (60-100); SAMPLE BLOOD; SAO2 96.2 % (95.0-100.0); pH(98.6) 7.44 (7.35-7.45)
[2016-10-23 05:20] LABS: MODALITY BI PAP; PCO2(98.6) 83 mmHg (35-45)
[2016-10-23 05:29] LABS: BASO% 0.1 % (0.0-0.8); EOS# 0.17 X1000 (0.0-0.7); EOS% 2.4 % (0.0-10.0); HEMATOCRIT 29.5 % (37.0-47.0); HEMOGLOBIN 8.5 g/dL (12.0-16.0); IMM GRAN# 0.02 X1000 (0.0-0.04); IMM GRAN% 0.3 % (0.0-0.5); LYMPH# 0.69 X1000 (1.2-3.4); LYMPH% 9.8 % (20.5-51.1); MANUAL DIFF NEEDED? YES; MCH 30.5 PG (27-31); MCHC 28.8 g/dL (33-37); MCV 105.7 FL (81-99); MONO% 15.6 % (1.7-9.3); NEUT% 71.8 % (42.2-75.2); PLT 61 X1000 (130-400); RBC 2.79 XMIL (4.2-5.4)
[2016-10-23 05:53] LABS: CALCIUM 9.2 mg/dL (8.8-10.2); MAGNESIUM 2.3 mg/dL (1.5-2.7); POTASSIUM 3.5 mmol/L (3.5-5.1)
[2016-10-23] MEDS: PRILOSEC PO SCH (05:59)
[2016-10-23] MEDS: SYNTHROID PO SCH (06:00)
[2016-10-23] MEDS: XANAX PO PRN (06:00)
[2016-10-23] MEDS: NORCO-7.5 PO PRN ×2 (06:00→19:03)
[2016-10-23] MEDS: ZOFRAN IV PRN ×2 (06:01→19:05)
[2016-10-23] MEDS: LASIX 100 MG in NS 90 ML IV SCH ×2 (06:02→23:46)
[2016-10-23 07:25] LABS: BANDS 2 % (0-1); HYPOCHROM 1+; LYMPHS 26 % (21-51)
[2016-10-23] MEDS: HEPARIN SUBQ SCH ×2 (10:03→21:28)
[2016-10-23] MEDS: MAXIPIME 2 GM in NS 100 ML IV SCH ×2 (10:03→21:29)
[2016-10-23] MEDS: FOLIC ACID PO SCH (10:04)
[2016-10-23] MEDS: CYMBALTA PO SCH (10:05)
[2016-10-23] MEDS: DIAMOX PO SCH ×2 (10:06→21:29)
[2016-10-23] MEDS: LIPITOR PO SCH (10:07)
[2016-10-23] MEDS: ZAROXOLYN PO SCH (10:07)
[2016-10-23] MEDS: TOPROL XL PO SCH (10:07)
[2016-10-23] MEDS ORDERED: XANAX PO PRN (10:08)
--- NOTE | 2016-10-23 10:20 | PROGRESS NOTE ---
DATE: 10/23/2016 PRESENT ILLNESS: The patient on echocardiogram has a mass on the aortic valve, which could be a vegetation. The patient has 1 of 4 blood cultures positive for coagulase-negative staph. I think this is a contaminant. MEDICATIONS: The patient currently is receiving cefepime and vancomycin. This is stable on treatment. PHYSICAL EXAMINATION: Vital signs: Temperature is 97.1, pulse 80, respirations 18, blood pressure 118/43. General: This is an ill-appearing, obese elderly female who is lethargic. Lungs: Clear to auscultation. Cardiovascular: Heart rate is regular. Abdomen: Soft and apparently not tender. Neurologic: The patient is lethargic. LAB AND X-RAY: CBC shows a white count of 7060, hemoglobin 8.5, and platelet count 61,000. Creatinine is 1, GFR is 55. Arterial blood gases show a pH of 7.44, pO2 of 82, and a pCO2 of 83. ASSESSMENT AND PLAN: Possibly the patient has an aortic valve endocarditis. At this time, I am going to continue with his antibiotics until all of his blood cultures are back. The patient's comorbidity is she has diabetes mellitus, morbid obesity, COPD, sleep apnea, and diabetes mellitus. cc: Rowdy Morales MD
--- NOTE | 2016-10-23 10:52 | PROGRESS NOTE ---
DATE: 10/23/2016 SUBJECTIVE: The patient is definitely more sleepy today. As per nursing staff, she was using her BiPAP most of the night. She is now using Ventimask. OBJECTIVE: Vital Signs: Temperature 97.1 degrees, heart rate 80, respiratory rate 18, blood pressure 118/43, O2 saturation 95% on Venturi mask. General Examination: This is a morbidly obese, chronically ill-looking, 70-year-old female lying in bed, in no acute distress. Definitely more lethargic today. HEENT: Head is normocephalic, atraumatic. Neck: Supple. JVD not possible to evaluate because of neck girth. Cardiovascular: S1, S2 heard. No murmurs, gallops, or rubs. Regular rate and rhythm. Respiratory: Decreased air entry globally with a few bibasilar crepitation. Definitely better in comparing with yesterday. Patient is not using any accessory muscles or having work of breathing. Abdomen: Distended. Nontender to palpation. Bowel sounds present. No organomegaly. No signs of peritoneal irritation. Decreased edema noted in the lateral aspect of the abdominal wall and chest wall. Extremities: There is 3+ pitting edema in both lower extremities with some discoloration of both lower extremities as well with improvement of the edema definitely. Extremities are warmer. Peripheral pulses present in both legs. Neurological: Patient is more sleepy today but follow commands and answers questions appropriately, but after we stop talking to her she he goes back to sleep. LABORATORY DATA: White cell count 7.06, hemoglobin 8.5, hematocrit 29.5, platelets 61,000. ABG shows pH 7.44 with pCO2 of 83. BMP unremarkable except BUN 44. ASSESSMENT AND PLAN: 1. Acute hypoxemic and hypercarbic respiratory failure. Even though she was using BiPAP at night, the CO2 is still higher. In any case, the patient has been advised to start using this machine overnight. She needs to use it today but she gets some breaks from BiPAP to eat and rest at some point. Nursing staff has been instructed about this. Dr. Stanford also from pulmonary is following this patient. We will follow his recommendations. 2. Acute on chronic diastolic heart failure. The patient continues to be on Lasix drip. In's and out's indicate good urine output of 4.6 L in the last 24 hours. We are going to continue with the same management. Renal function is okay. Will continue with the same management. Actually what it looks like is this diastolic heart failure is right heart failure secondary to obesity hyperventilation syndrome that this patient has. 3. Hyperkalemia, resolved. 4. Hypothyroidism. Will continue with the same dose of Synthroid. 5. Dilated mild concentric hypertrophic cardiomyopathy. Will continue with the same management. It is important to remark that this condition has worsened for moderate aortic insufficiency. Cardiology is following. 6. Suspected aortic valve endocarditis. In the transthoracic echo that we have done here there was a small mass that is located near to the aortic valve. Dr. Morales from infectious disease was consulted. It is important to remark that this patient during this hospitalization had 1 blood culture positive for Staph coagulase negative. Of course, we did not treat this bacteria because we thought it was a contaminant. Dr. Morales evaluated this patient and decided to start on vancomycin and cefepime. He ordered 2 more blood cultures and if we confirmed that this patient is still positive for this coagulase-negative Staph then we will treat this patient as acute endocarditis. Surprisingly the inflammatory markers like CRP as completely normal. We will follow recommendations from Dr. Morales. 7. Obstructive sleep apnea. Patient is using here a BiPAP machine and she has a BiPAP machine also at home. 8. Acute kidney injury. Completely resolved. 9. Disposition. The patient's CO2 levels are going up and down. She is not doing good today. We are going to keep this patient in the CIC unit. We are going to continue with Bob nogueira. cc: Griffin Powell MD
[2016-10-23] MEDS: VANCOMYCIN 1,800 MG in NS 500 ML IV SCH (11:44)
[2016-10-23] MEDS ORDERED: AYR NASAL SPRAY NAS PRN (15:30)
[2016-10-23] MEDS: MIRAPEX PO SCH (21:28)
[2016-10-23] MEDS: MIRALAX PO SCH (23:47)
[2016-10-24 05:11] LABS: ALLEN TEST YES; BE 29.9 mmoll (-3.0-3.0); BLOOD TYPE ARTERIAL; DRAW SITE R RADIAL; METHB 0.3 % (0.0-1.5); O2(CT) 12.2 mL/dL (15.0-23.0); PO2(98.6) 119 mmHg (60-100); SAMPLE BLOOD; THB 8.9 g/dL (11.5-17.4); pH(98.6) 7.51 (7.35-7.45)
[2016-10-24 05:13] LABS: MODALITY BI PAP; PCO2(98.6) 71 mmHg (35-45)
[2016-10-24 05:50] LABS: BASO% 0.1 % (0.0-0.8); EOS# 0.48 X1000 (0.0-0.7); EOS% 6.9 % (0.0-10.0); HEMATOCRIT 29.6 % (37.0-47.0); HEMOGLOBIN 8.7 g/dL (12.0-16.0); IMM GRAN# 0.02 X1000 (0.0-0.04); IMM GRAN% 0.3 % (0.0-0.5); LYMPH# 0.68 X1000 (1.2-3.4); LYMPH% 9.8 % (20.5-51.1); MANUAL DIFF NEEDED? YES; MCH 30.5 PG (27-31); MCHC 29.4 g/dL (33-37); MCV 103.9 FL (81-99); MONO# 0.91 X1000 (0.11-0.59); MONO% 13.2 % (1.7-9.3); MPV 12.4 FL (7.4-10.4); NEUT% 69.7 % (42.2-75.2); PLT 48 X1000 (130-400); RBC 2.85 XMIL (4.2-5.4)
[2016-10-24] MEDS: SYNTHROID PO SCH (06:18)
[2016-10-24] MEDS: PRILOSEC PO SCH (06:18)
[2016-10-24] MEDS: NORCO-7.5 PO PRN ×3 (06:21→22:45)
[2016-10-24 06:23] LABS: AGAP 12; BUN 38 mg/dL (8-22); CALCIUM 8.9 mg/dL (8.8-10.2); CHLORIDE 84 mmol/L (98-107); COSMO 287; MAGNESIUM 2.1 mg/dL (1.5-2.7); POTASSIUM 3.6 mmol/L (3.5-5.1); SODIUM 138 mmol/L (136-145); TCO2 42 mmol/L (25-35)
[2016-10-24] MEDS: ZOFRAN IV PRN ×4 (06:36→22:41)
--- NOTE | 2016-10-24 07:17 | PROGRESS NOTE ---
DATE: 10/24/2016 SUBJECTIVE: The patient is definitely more awake today. As per nursing staff she was using her BiPAP all night long. She is complaining of mild nausea and she is also complaining of pain, back pain. OBJECTIVE: Vital Signs: Temperature 98.5 degrees, heart rate 80, respiratory rate 20, blood pressure 143/97, O2 saturation 100% on BiPAP machine. General Examination: This is a morbidly obese, chronically ill-looking, 70-year-old female lying in bed, in no acute distress. HEENT: Head is normocephalic, atraumatic. Neck: Supple. JVD is not possible to evaluate because of the neck girth. Cardiovascular: S1, S2 heard. No murmurs, gallops , or rubs. Regular rate and rhythm. Respiratory: Decreased air entry globally with a few bibasilar crepitations still present. The patient is not using any accessory muscles or having work of breathing. Abdomen: Distended but nontender to palpation. Bowel sounds present. No organomegaly. No signs of peritoneal irritation. Decreased edema noted in the lateral aspect of the chest wall and abdominal wall. Extremities: There is a 3+ pitting edema in both lower extremities that is getting better. Peripheral pulses present in both legs. Neurological: Patient is more awake today. Follow commands. Answer questions appropriately. Moves 4 extremities. LABORATORY DATA: White cell count 6.91, hemoglobin 8.7, hematocrit 29.6, platelets 48,000. ABG shows pH 7.51 with pCO2 71, PO2 119. BMP unremarkable. ASSESSMENT AND PLAN: 1. Acute hypoxemic and hypercarbic respiratory failure. Patient has been using BiPAP last night and has show an improvement from pCO2 83 yesterday to 71 today. At this point, we are going to continue with BiPAP overnight. She is getting some breaks from BiPAP to eat. Pulmonary following this patient. We will follow recommendations. 2. Acute on chronic diastolic heart failure. The patient is on Lasix drip and patient is having a good diureses. She has 3.9 L of urine. At this point, we are going to continue with the same management and if this patient continues to have this amount of diuresis , probably may change the Lasix to 40 mg IV q.12 hours. Renal function is okay. 3. Hyperkalemia. Condition is completely resolved. 4. Hypothyroidism. Will continue with the same doses of Synthroid. 5. Dilated concentric hypertrophic cardiomyopathy. Cardiology following this patient. 6. Suspected aortic valve endocarditis. As we mentioned in our previous notes, the patient is on antibiotics in this case, vancomycin and cefepime for suspected endocarditis. She had a mass near to the aortic valve found in the last echo that we have done this hospitalization and 1 blood culture was positive for coagulase negative staph. 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 Morales of Infectious Disease. If those t rail turner to be positive for the same bacteria coagulase negative staph patient will receive full treatment for acute endocarditis. 7. Obstructive sleep apnea. Patient is using a BiPAP machine at night and she is slowly responding to medication. 8. Acute kidney injury, completely resolved. 9. Disposition. Because the CO2 levels have gone up and down and she is still requiring for her oxygen needs Ventimask most of the time, I prefer to keep this patient here in the [facility] unit and continue with Bob duarte. cc: Griffin Powell MD MTDD
[2016-10-24] MEDS: CYMBALTA PO SCH (09:00)
[2016-10-24] MEDS: LIPITOR PO SCH (09:00)
[2016-10-24] MEDS: TOPROL XL PO SCH (09:00)
[2016-10-24] MEDS: FOLIC ACID PO SCH (09:01)
[2016-10-24] MEDS: DIAMOX PO SCH ×2 (09:01→21:23)
[2016-10-24] MEDS: MAXIPIME 2 GM in NS 100 ML IV SCH ×2 (09:01→21:22)
[2016-10-24] MEDS: MIRALAX PO SCH (09:01)
[2016-10-24] MEDS: ARIXTRA SUBQ SCH (09:01)
[2016-10-24 09:04] LABS: HYPOCHROM 1+; LYMPHS 10 % (21-51); MONO 10 % (1-9)
[2016-10-24] MEDS ORDERED: XANAX PO PRN (11:02)
[2016-10-24] MEDS: VANCOMYCIN 1,800 MG in NS 500 ML IV SCH (11:08)
[2016-10-24] MEDS: LASIX 100 MG in NS 90 ML IV SCH (16:04)
--- NOTE | 2016-10-24 16:40 | PROGRESS NOTE ---
DATE: 10/24/2016 SUBJECTIVE: Ms. Peck is complaining of some shortness of breath. She has been somewhat sleepy today. PHYSICAL EXAMINATION: Vital signs: Afebrile, heart rate of 80, blood pressure 124/56. Her I's and O's more recently have continued to stay negative anywhere to the 1 to 3.2 L over the last 24 hours. She has been negative a total of 12 L during this hospitalization. General: No acute distress. Cardiovascular: She is in a regular rate and rhythm. She has no murmurs. She has warm and well perfused lower extremities. Chest exam: Notably, she is on a BiPAP. She has no increased work of breathing. Abdomen: Soft, nontender. PERTINENT DATA: White count 6.9, hematocrit 29.6, platelet count is down to 48,000. ABG was reviewed. Sodium 138, potassium 3.6, BUN 38, creatinine 0.9 which BUN is improved. Her carbon dioxide level is 42 on her chemistry which is down from 46 yesterday. ASSESSMENT: Acute on chronic heart failure diastolic in nature along also with a predominance of right-sided heart failure. PLAN: She is on Diamox in addition to Lasix drip. The patient has a slight alkalosis along with an elevated CO2 level. I agree with continuation of the Diamox. We will ensure she has a chemistry ordered in the morning along with an ABG. cc: Estuardo Tracy MD
[2016-10-24] MEDS: MIRAPEX PO SCH (21:23)
[2016-10-25] MEDS: ZOFRAN IV PRN ×4 (03:03→18:56)
[2016-10-25 05:00] LABS: ALLEN TEST YES; BE 26.5 mmoll (-3.0-3.0); BLOOD TYPE ARTERIAL; DRAW SITE R RADIAL; METHB 0.8 % (0.0-1.5); PO2(98.6) 110 mmHg (60-100); SAMPLE BLOOD; THB 9.6 g/dL (11.5-17.4); pH(98.6) 7.46 (7.35-7.45)
[2016-10-25 05:01] LABS: PCO2(98.6) 76 mmHg (35-45)
[2016-10-25 05:02] LABS: MODALITY VENTIMASK
[2016-10-25 05:53] LABS: BASO% 0.1 % (0.0-0.8); EOS# 0.53 X1000 (0.0-0.7); EOS% 6.9 % (0.0-10.0); HEMATOCRIT 31.2 % (37.0-47.0); HEMOGLOBIN 9.4 g/dL (12.0-16.0); IMM GRAN# 0.05 X1000 (0.0-0.04); IMM GRAN% 0.6 % (0.0-0.5); LYMPH# 0.68 X1000 (1.2-3.4); LYMPH% 8.8 % (20.5-51.1); MANUAL DIFF NEEDED? NO; MCH 30.6 PG (27-31); MCHC 30.1 g/dL (33-37); MCV 101.6 FL (81-99); MONO# 1.28 X1000 (0.11-0.59); MONO% 16.6 % (1.7-9.3); MPV 9.8 FL (7.4-10.4); PLT 61 X1000 (130-400); RBC 3.07 XMIL (4.2-5.4)
[2016-10-25 06:05] LABS: CALCIUM 9.1 mg/dL (8.8-10.2); MAGNESIUM 1.9 mg/dL (1.5-2.7); POTASSIUM 3.2 mmol/L (3.5-5.1)
[2016-10-25] MEDS: NORCO-7.5 PO PRN ×2 (06:26→14:30)
[2016-10-25] MEDS: SYNTHROID PO SCH (06:27)
[2016-10-25] MEDS: PRILOSEC PO SCH (06:28)
[2016-10-25] MEDS: SODIUM CHLORIDE 0.9% INJ PRN (09:01)
[2016-10-25] MEDS: MAXIPIME 2 GM in NS 100 ML IV SCH ×2 (09:01→22:20)
[2016-10-25] MEDS: CYMBALTA PO SCH (09:01)
[2016-10-25] MEDS: LIPITOR PO SCH (09:02)
[2016-10-25] MEDS: FOLIC ACID PO SCH (09:02)
[2016-10-25] MEDS: MIRALAX PO SCH (09:02)
[2016-10-25] MEDS: TOPROL XL PO SCH (09:02)
[2016-10-25] MEDS: ARIXTRA SUBQ SCH (09:02)
[2016-10-25] MEDS: DIAMOX PO SCH ×2 (09:02→22:17)
[2016-10-25] MEDS: PHENERGAN IV PRN ×2 (09:03→22:19)
--- NOTE | 2016-10-25 11:02 | Diag Imaging Result Doc PS360 ---
EXAM: CT ABD/PELVIS ORAL CONTR ONLY HISTORY: abdominal pain, coffee ground material vomited TECHNIQUE: CT of the abdomen and pelvis with oral contrast COMMENT: There is linear opacity throughout the lung bases particularly in the right lower lobe consistent with atelectasis, as well as denser alveolar opacity. This this may be superimposed on some fibrotic opacities which were also present on 07/21/2012. There is no evidence of hydronephrosis or nephrolithiasis. There may be some sediment layering dependently in the gallbladder. The gallbladder is slightly more distended than it was on the previous examination. There is a large amount of stool throughout the colon. There is small bowel is not distended. There is no evidence of abdominal aortic aneurysm or significant adenopathy. The spleen and adrenal glands are not enlarged. The pancreas is unremarkable in appearance. There is some edema in the subcutaneous fat over the flanks particularly on the right. Pelvis: There is a Rausch catheter in the urinary bladder which is not distended. There is no evidence of appendicitis. There is a fat-containing umbilical hernia. There is some diverticulosis however no evidence of active diverticulitis is present. There are no abnormal fluid collections. No significant adenopathy is present. There are degenerative disc changes throughout the lumbar spine with some scoliosis and convexity to the left. No acute bony abnormalities are present. IMPRESSION: 1. Bibasilar atelectasis plus minus pneumonia. 2. Constipation. 3. Diverticulosis coli. 4. Gallbladder sludge. Electronically signed by Saturnino Colin 10/25/2016 11:00 AM
--- NOTE | 2016-10-25 11:27 | PROGRESS NOTE ---
DATE: 10/25/2016 SUBJECTIVE: The patient is somewhat a little bit sleepy. As per nursing staff , she was not able to use her BiPAP all night long because she was vomiting, and she was receiving Zofran every 4 hours around the clock. Basically, she continues to complain of nausea requiring Zofran every 4 hours. No fever. No chills. He does not remember the last bowel movement was 2 or 3 days ago. OBJECTIVE: Vital Signs: Temperature 97.9 degrees, heart rate 76, respiratory 16 , blood pressure 133/43, O2 saturation 96% on Venturi mask. General: This is a morbidly obese, chronically ill- looking, 70-year-old female lying in bed in no acute distress. A little bit more sleepier in comparing with yesterday. HEENT: Head is normocephalic and atraumatic. Anicteric sclerae and pale conjunctivae. Mucous membranes moist. Neck supple. No JVD. Unable to possibly evaluate because of the neck girth. Cardiovascular: S1, S2 heard. No murmurs, gallops, or rubs. Regular rate and rhythm. Respiratory: Decreased air entry globally. Some bibasilar crepitation, but definitely much better in comparing with previous days. The patient is not using any accessory muscles or having work of breathing. Abdomen is more distended than yesterday. There is less abdominal wall and chest wall swelling. No signs of peritoneal irritation. Extremities: 3+ pitting edema in both lower extremities. Peripheral pulses present in both legs. Neurological: Patient is similar to yesterday, follows commands, answer questions appropriately. Complaining of abdominal distention. LABORATORY DATA: White cell count 7.7, hemoglobin 9.4, hematocrit 31.2. Platelets 61,000. The ABG shows pH 7.46, pCO2 of 76, PO2 of 100. Sodium 131, potassium 3.2, creatinine 1.0. ASSESSMENT AND PLAN: 1. Acute hypoxemic hypercarbic respiratory failure. The CO2 is less in comparing with yesterday 76 but there is not too much difference. In any case, we are going to continue with the same management. 2. [id number] diastolic heart failure. Patient is on Lasix drip, and also Cardiology has added Diamox to his current treatment. We will continue with the Lasix drip. We will continue with the same management. 3. Hypokalemia. We are going to supplement potassium as needed. 4. Hypothyroidism. We will continue with the same dose of Synthroid. 5. Dilated concentric hypertrophic cardiomyopathy. Cardiology following patient , we are aware. 6. Aortic valve endocarditis. patient has been started on vancomycin and cefepime for suspected endocarditis that we found in the transthoracic echocardiogram. Basically, the plan from Dr. Morales is to wait for the results of the cultures to see if coagulase negative staph is growing there. So, if that is the case, the patient will need full treatment for endocarditis. If not, we may need to stop antibiotics. We will leave the management of antibiotics to Dr. Morales. 7. Obstructive sleep apnea. Patient is supposed to be on BiPAP. 8. Acute kidney injury, completely resolved. 9. Thrombocytopenia. We have changed heparin for Arixtra. We will see how she does. 10. Abdominal distension. Patient has been complaining of nausea all day long yesterday and requiring Zofran every four hours around the clock. Physical examination disclosed more abdominal pain. Will do a CT of abdomen and we will go from there. DISPOSITION. We will keep patient in [facility]. cc: Griffin Powell MD MTDJani
[2016-10-25] MEDS: LASIX 100 MG in NS 90 ML IV SCH (12:14)
[2016-10-25] MEDS ORDERED: SAMSCA PO ONE (12:20)
[2016-10-25] MEDS ORDERED: POTASSIUM CHLORIDE 40 MEQ/SWI 40 MEQ/100 ML IVPB IV ONE (12:21)
[2016-10-25] MEDS: VANCOMYCIN 1,800 MG in NS 500 ML IV SCH (12:32)
--- NOTE | 2016-10-25 12:49 | PROGRESS NOTE ---
DATE: 10/25/2016 SUBJECTIVE: Ms. Peck is somewhat somnolent today. She apparently had some issues with nausea last night and this morning and was administered some Phenergan. OBJECTIVE: Vital signs: She is afebrile, heart rate is 73, blood pressure 128/41. Her I's and O's continue to be negative on the order of 1.6 and 1.8 L over the last couple of days. Her total negative is 13.2 L. General: She is in no acute distress. Cardiovascular: She sounds to be in a regular rate and rhythm. There is 2+ lower extremity edema and warm and well perfused lower extremities. Chest: Exam is somewhat difficult secondary to her somnolence and poor cooperation with the exam. She does not have any obvious increased work of breathing. Abdomen: Soft, nontender. Positive bowel sounds. PERTINENT DATA: White count 7.7, hematocrit 31, platelet count is 61,000 and relatively stable. Her ABG shows a pH of 7.46, pCO2 of 76. Her sodium is 131, potassium 3.2, BUN 34, creatinine 1. ProBNP this morning is 5,725 which is up from 4,417 on the . ASSESSMENT: 1. Predominance of right-sided failure type symptoms. 2. Obstructive sleep apnea/chronic obstructive pulmonary disease. PLAN: We will continue on current diuretics and add in a dose of Samsca. I will also replete her potassium. BMP will be ordered in the morning. Dr. Granados will be back to follow the patient. cc: Estuardo Tracy MD
[2016-10-25] MEDS: POTASSIUM CHLORIDE 20 MEQ/SWI 20 MEQ/100 ML IVPB IV SCH ×2 (12:50→16:34)
[2016-10-25] MEDS: MIRAPEX PO SCH (22:18)
[2016-10-26] MEDS: NORCO-7.5 PO PRN (02:54)
[2016-10-26] MEDS: ZOFRAN IV PRN ×3 (02:54→13:56)
[2016-10-26 04:31] LABS: ALLEN TEST YES; BE 23.5 mmoll (-3.0-3.0); BLOOD TYPE ARTERIAL; DRAW SITE R RADIAL; METHB 0.8 % (0.0-1.5); O2(CT) 16.6 mL/dL (15.0-23.0); PO2(98.6) 90 mmHg (60-100); SAMPLE BLOOD; THB 12.5 g/dL (11.5-17.4); pH(98.6) 7.44 (7.35-7.45)
[2016-10-26 04:33] LABS: MODALITY BI PAP; PCO2(98.6) 77 mmHg (35-45)
[2016-10-26 05:50] LABS: BASO% 0.6 % (0.0-0.8); EOS# 0.33 X1000 (0.0-0.7); EOS% 3.6 % (0.0-10.0); HEMATOCRIT 31.1 % (37.0-47.0); HEMOGLOBIN 9.8 g/dL (12.0-16.0); IMM GRAN# 0.17 X1000 (0.0-0.04); IMM GRAN% 1.9 % (0.0-0.5); LYMPH# 0.78 X1000 (1.2-3.4); LYMPH% 8.6 % (20.5-51.1); MANUAL DIFF NEEDED? YES; MCHC 31.5 g/dL (33-37); MCV 98.4 FL (81-99); MONO# 1.49 X1000 (0.11-0.59); MONO% 16.5 % (1.7-9.3); NEUT% 68.8 % (42.2-75.2); PLT 51 X1000 (130-400); RBC 3.16 XMIL (4.2-5.4)
[2016-10-26] MEDS: LASIX 100 MG in NS 90 ML IV SCH ×2 (06:21→06:59)
[2016-10-26 06:22] LABS: CALCIUM 9.4 mg/dL (8.8-10.2); POTASSIUM 4.2 mmol/L (3.5-5.1)
[2016-10-26] MEDS: PRILOSEC PO SCH (06:22)
[2016-10-26] MEDS: SYNTHROID PO SCH (06:22)
--- NOTE | 2016-10-26 06:57 | PROGRESS NOTE ---
DATE: 10/26/2016 PRESENT ILLNESS: The echocardiogram has a mass on the aortic valve, which could be a vegetation. The patient has only 1 of 4 blood cultures positive for a coagulase-negative Staphylococcus. I think this is a contaminant. MEDICATIONS: The patient is currently on cefepime and vancomycin. PHYSICAL EXAMINATION: Vital Signs: Temperature is 98.2 degrees, pulse 77, respirations 18, blood pressure 143/42. General: This is a chronically ill-appearing, elderly female. She is obese. She is somewhat lethargic. She is wearing a BiPAP mask today. Lungs: Clear to auscultation. Cardiovascular: Regular heart rate. Abdomen: Soft and nontender. Neurologic: The patient was arousable. She requested seeing the nurse because of chest pain. LABORATORY AND X-RAY: Her pH is 7.44, PO2 of 90, pCO2 of 77. Creatinine is 1. GFR is 55. CT scan of the abdomen and pelvis shows bibasilar atelectasis and/or pneumonia. It also shows evidence of constipation and diverticulosis. ASSESSMENT AND PLAN: It is difficult to know whether the patient does have active and aortic valve endocarditis or not. I have not been able to see where she has actually had antibiotic therapy. Dr. Granados says that the mass has been there and that it represents scar tissue and that there is no active infection at this time. For right now, I am going to continue the patient's antibiotics. COMORBIDITIES: Include diabetes mellitus, morbid obesity, COPD sleep apnea, and diabetes mellitus. cc: Rowdy Morales MD
[2016-10-26 07:24] LABS: BANDS 2 % (0-1); HYPOCHROM 2+; LYMPHS 8 % (21-51); MONO 14 % (1-9)
[2016-10-26] MEDS ORDERED: SAMSCA PO ONE (07:51)
[2016-10-26] MEDS ORDERED: NORCO-7.5 PO PRN (08:17)
[2016-10-26] MEDS: MIRALAX PO SCH ×2 (08:38→21:40)
[2016-10-26] MEDS: ARIXTRA SUBQ SCH (08:38)
[2016-10-26] MEDS: FOLIC ACID PO SCH (08:38)
[2016-10-26] MEDS: MAXIPIME 2 GM in NS 100 ML IV SCH ×2 (08:38→21:40)
[2016-10-26] MEDS: OFIRMEV 1000 MG/ISOTONIC SOLN 1,000 MG/100 ML BOTTLE IV SCH ×3 (08:38→21:39)
[2016-10-26] MEDS: LASIX IV SCH ×2 (08:38→21:41)
[2016-10-26] MEDS: CYMBALTA PO SCH (08:39)
[2016-10-26] MEDS: LIPITOR PO SCH (08:39)
[2016-10-26] MEDS: TOPROL XL PO SCH (08:39)
[2016-10-26] MEDS: DIAMOX PO SCH ×2 (08:39→21:41)
[2016-10-26] MEDS: DULCOLAX PO SCH (09:08)
--- NOTE | 2016-10-26 09:59 | PROGRESS NOTE ---
DATE: 10/26/2016 SUBJECTIVE: Patient reports less nauseated. She also said that she was not able to have any bowel movements in the last few days. No fever or chills. No shortness of breath reported. OBJECTIVE: Vital Signs: Temperature 98.2 degrees, heart rate is 86, respiratory rate 18, blood pressure 124/60, O2 saturation 97% on Ventimask. General Examination: This is a morbidly obese and chronically ill-looking, 70-year-old, female lying in bed, in no acute distress. HEENT: Head is normocephalic and atraumatic. Mucous membranes are moist. Neck : Supple. No JVD noted. No carotid bruits. Cardiovascular Examination: S1 and S2 are heard. No murmurs, gallops, or rubs. Respiratory Examination: Decreased air entry globally. Some bibasilar crepitations, definitely better in comparing with previous days. Patient is not using any accessory muscles or having work of breathing. Abdomen: Distended, the same in comparing with yesterday. Less abdominal wall and chest wall swelling. No signs of peritoneal irritation. Extremities: There is 2+ pitting edema in both lower extremities. Peripheral pulses present in both legs. Neurological Examination: The patient is similar to yesterday. Follows commands and answer questions appropriately. Moves 4 extremities. Laboratory Data: White cell count 9.05, hemoglobin 9.8, hematocrit 31.1, platelets 51,000. An ABG shows pH of 7.44, with pCO2 of 77, and PO2 of 90. Sodium 129, carbon dioxide 38, creatinine 1.1. ASSESSMENT AND PLAN: 1. Acute hypoxemic and hypercarbic respiratory failure. The CO2 level is kind of the same in comparing with yesterday. Today is 77. As we probably know, this patient has had chronic CO2 retainer. I do not know exactly what number should be seen in order to send this patient either home or rehab. She is requiring, since she is here, that is a week for now, Ventimask and BiPAP. She was not able to cover her oxygen needs by using nasal cannula. I suspect that this patient will be for a while in the hospital. I am not quite sure to what degree we can help this patient to improve her respiratory function. 2. Acute on chronic diastolic heart failure. Patient has been on Lasix drip for 1 week. The patient starting having hyponatremia and high bicarbonate. Cardiology has started Diamox to her current treatment. I prefer to change to treat to Lasix 40 mg intravenous every 12 hours. Cardiology is following this patient. We will follow recommendations. 3. Hypokalemia, resolved. 4. Hypothyroidism. We will continue with the same doses of Synthroid. 5. Dilated concentric hypertrophic cardiomyopathy with aortic insufficiency, aware. Cardiology is following. 6. Aortic valve endocarditis. The patient has been started on vancomycin and cefepime for suspected endocarditis. The echocardiogram basically shows a mass near the aortic area. Dr. Morales from infectious disease has decided to start antibiotics on this patient. We are waiting for the final results of 2 sets and of 1 set of blood cultures to see if it definitely turns out positive. Then we may need to stop antibiotics. We will defer the management of the antibiotics to Dr. Morales. 7. Obstructive sleep apnea. Patient is supposed to be on BiPAP. We will see if we can get 1 for her while she is in the hospital. Otherwise, she will definitely go back and forth here. 8. Acute kidney injury, resolved. 9. Thrombocytopenia. The patient is receiving Arixtra for deep venous thrombosis prophylaxis. We will continue with the same management. 10. Abdominal distention. The CT of the abdomen shows pneumonia and also constipation. Patient will continue with the same antibiotic therapy and also will be given a prescription for stool softeners, and we will see how this patient does. 11. Bilateral pneumonia: Will continue with antibiotics as above. Overall, the patient is doing still the same. I prefer to keep this patient in the [facility] unit today. cc: MD ALETA Bruce
[2016-10-26] MEDS: VANCOMYCIN 1,800 MG in NS 500 ML IV SCH (11:03)
[2016-10-26] MEDS: SODIUM CHLORIDE 0.9% INJ PRN (17:03)
[2016-10-26] MEDS: PHENERGAN IV PRN (17:03)
[2016-10-26 17:10] LABS: POTASSIUM 3.6 mmol/L (3.5-5.1)
[2016-10-26] MEDS: MIRAPEX PO SCH (21:39)
[2016-10-27] MEDS: OFIRMEV 1000 MG/ISOTONIC SOLN 1,000 MG/100 ML BOTTLE IV SCH ×5 (03:05→20:50)
--- NOTE | 2016-10-27 03:57 | PROGRESS NOTE ---
DATE: 10/26/2016 ADDENDUM: I refer to Dr. Granados's consult dictated on 10/20/[address] Granados discusses why we think that if the patient had endocarditis, she already has received treatment for it and why at this time we doubt that the patient has an active infection involving her aortic valve. cc: Rowdy Morales MD
[2016-10-27 05:25] LABS: BASO% 0.1 % (0.0-0.8); EOS# 0.23 X1000 (0.0-0.7); EOS% 3.4 % (0.0-10.0); HEMATOCRIT 30.4 % (37.0-47.0); HEMOGLOBIN 9.5 g/dL (12.0-16.0); IMM GRAN# 0.03 X1000 (0.0-0.04); IMM GRAN% 0.4 % (0.0-0.5); LYMPH# 0.83 X1000 (1.2-3.4); LYMPH% 12.1 % (20.5-51.1); MANUAL DIFF NEEDED? NO; MCHC 31.3 g/dL (33-37); MCV 99.3 FL (81-99); MONO# 1.14 X1000 (0.11-0.59); MONO% 16.7 % (1.7-9.3); MPV 8.7 FL (7.4-10.4); NEUT% 67.3 % (42.2-75.2); PLT 58 X1000 (130-400); RBC 3.06 XMIL (4.2-5.4)
[2016-10-27] MEDS: ZOFRAN IV PRN (05:25)
[2016-10-27] MEDS: PRILOSEC PO SCH ×2 (05:26→06:00)
[2016-10-27] MEDS: SYNTHROID PO SCH ×2 (05:26→06:00)
[2016-10-27 06:14] LABS: AGAP 12; BUN 34 mg/dL (8-22); CALCIUM 9.3 mg/dL (8.8-10.2); CHLORIDE 83 mmol/L (98-107); COSMO 276; MAGNESIUM 2.2 mg/dL (1.5-2.7); POTASSIUM 3.1 mmol/L (3.5-5.1); SODIUM 133 mmol/L (136-145); TCO2 38 mmol/L (25-35)
[2016-10-27] MEDS ORDERED: KLOR-CON PO ONE (06:43)
[2016-10-27 07:56] LABS: ALLEN TEST YES; BE 20.3 mmoll (-3.0-3.0); BLOOD TYPE ARTERIAL; DRAW SITE R RADIAL; METHB 0.9 % (0.0-1.5); O2(CT) 13.5 mL/dL (15.0-23.0); PO2(98.6) 95 mmHg (60-100); SAMPLE BLOOD; SAO2 97.9 % (95.0-100.0); pH(98.6) 7.43 (7.35-7.45)
[2016-10-27 07:59] LABS: MODALITY VENTIMASK; PCO2(98.6) 72 mmHg (35-45)
[2016-10-27] MEDS ORDERED: DUONEB (A & A) INH PRN (08:09)
[2016-10-27] MEDS ORDERED: SAMSCA PO ONE (08:13)
--- NOTE | 2016-10-27 08:29 | PROGRESS NOTE ---
DATE: 10/27/2016 PRESENT ILLNESS: I discussed the patient's case again with Dr. Granados. The patient had received prolonged IV antibiotics when she was treated for an epidural abscess. The patient received antibiotics for that, but it would also most likely cover eye any organisms that would appear that would be most likely to cause endocarditis. Also at this time, the patient does not have any evidence of an active infection. The one blood culture that was a what that was positive was a coagulase-negative staph, and I would consider this is a contaminant. The patient does, on chest x-ray, have possible bibasilar atelectasis and/or pneumonia. Also, she has been having a vaginal pruritus and discharge. MEDICATIONS: This is day 5 of treatment with both of these antibiotics. PHYSICAL EXAMINATION: Vital Signs: Temperature is 98 degrees, pulse 82, respirations 12, blood pressure 128/40. General: This is a chronically ill-appearing, elderly female, who is in no acute distress. Lungs: Clear to auscultation. Cardiovascular: Heart rate was regular. Abdomen: Soft and nontender. Neurologic: She was arousable. Extremities: She can move her extremities. LAB AND X-RAY: The only lab test today is a CBC which shows a white count of 6840, hemoglobin 9.5, and platelet count 58,000. There is no new radiographic study either. ASSESSMENT AND PLAN: The patient may have a bibasilar pneumonia with possible associated atelectasis as seen on chest x-ray. The patient's complaints of vaginal pruritus and discharged would be most likely due to Batsheva and for that, I plan to use Lotrimin cream. As regarding the possible endocarditis, I think the patient does not have endocarditis now and if she did have it before, it was treated while she was getting treatment for her epidural abscess. COMORBIDITIES: Diabetes mellitus, morbid obesity, COPD, sleep apnea. cc: Rowdy Morales MD
--- NOTE | 2016-10-27 09:21 | PROGRESS NOTE ---
DATE: 10/27/2016 SUBJECTIVE: Patient reports breathing better. She reports unable to have bowel movements in the last few days. No fever or chills. No abdominal pain. OBJECTIVE: Vital Signs: Temperature 98.4 degrees, heart rate 84, respiratory rate 18, blood pressure 125/45, O2 saturation 99% on Venturi mask at 15 L. General Examination. This is a morbidly obese and chronically ill-looking, 70-year-old, female lying in bed, in no acute distress. HEENT: Head is normocephalic, atraumatic. Mucous membranes dry. Neck: Supple. JVD is not possible to evaluate because of the neck girth. No carotid bruits. Cardiovascular Examination: S1 and S2 heard. No murmurs, gallops, or rubs. Regular rate and rhythm. Respiratory Examination: Decreased air entry globally with fine bibasilar crepitations, definitely better in comparing with previous days. The patient is not using any accessory muscles or having work of breathing. Abdomen: A little bit distended but same in comparing with yesterday. Less abdominal wall and chest wall swelling. No signs of peritoneal irritation. Ram negative. Extremities: With 2+ pitting edema in both lower extremities. Peripheral pulses present in both legs. Neurological Examination: Patient is awake and follow commands. Answer questions appropriately. Moves 4 extremities. Laboratory Data: White cell count 6.82, hemoglobin 9.5, hematocrit 30.4, platelets 58,000. ABG shows pH 7.42 with pCO2 of 72. BMP shows sodium 133, potassium 3.1, chloride 83, bicarbonate 38. Normal renal function. Sugar 135. ASSESSMENT AND PLAN: 1. Acute hypoxemic and hypercarbic respiratory failure. Clinically, this patient is doing better. Not complaining of any shortness of breath. According to the patient, she uses at home oxygen at 3-4 L nasal cannula but now during all her hospitalization, she is requiring, if she is not on BiPAP for high CO2, she is on Ventimask. On nasal cannula, she desaturates. In this case, I prefer to start breathing treatments that this patient uses at home; in this case, DuoNeb every 4 hours scheduled and every 2 hours as needed for shortness of breath. We will how this patient does. 2. Acute on chronic diastolic heart failure. Patient has been on Lasix drip for a week. Because of hyponatremia and high bicarbonate, cardiology has started on Diamox. Patient is receiving from yesterday Lasix 40 mg intravenous every 12 hours. Patient is having good diureses. We are going to switch this medication to oral and see how she does. 3. Hypothyroidism. We will continue with the same doses of Synthroid. 4. Dilated concentric hypertrophic cardiomyopathy with moderate aortic insufficiency, aware. Cardiology is following. 5. Aortic valve endocarditis. We had a conversation with Dr. 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 6. Bilateral pneumonia. Because of abdominal pain, we ordered a CT of the abdomen and pelvis which basically showed bilateral pneumonia but x-ray did not show that finding. In any case, Dr. Morales and I, we have an agreement to continue with both medications, vancomycin and meropenem, to complete 7 days and then we will stop antibiotics. 7. Obstructive sleep apnea. Patient is using BiPAP overnight every single day. 8. Acute kidney injury, resolved. 9. Thrombocytopenia. The platelet count is around 50,000 most of the time. The patient was receiving Lovenox for deep venous thrombosis prophylaxis. That was changed to Arixtra recently. 10. Abdominal distention secondary to constipation. We are going to provide linaclotide for this condition, considering that she is not having bowel movements. cc: Griffin Powell MD
[2016-10-27] MEDS: ARIXTRA SUBQ SCH (09:47)
[2016-10-27] MEDS: CYMBALTA PO SCH (09:48)
[2016-10-27] MEDS: LINZESS PO SCH (09:48)
[2016-10-27] MEDS: FOLIC ACID PO SCH (09:48)
[2016-10-27] MEDS: DULCOLAX PO SCH (09:48)
[2016-10-27] MEDS: MIRALAX PO SCH ×2 (09:48→20:54)
[2016-10-27] MEDS: TOPROL XL PO SCH (09:48)
[2016-10-27] MEDS: LIPITOR PO SCH (09:48)
[2016-10-27] MEDS: MAXIPIME 2 GM in NS 100 ML IV SCH ×2 (09:49→20:50)
[2016-10-27] MEDS: DIAMOX PO SCH ×2 (09:49→20:53)
[2016-10-27] MEDS: LASIX PO SCH ×2 (10:01→20:52)
[2016-10-27] MEDS: DUONEB (A & A) INH SCH ×4 (11:32→23:13)
[2016-10-27] MEDS: MIRAPEX PO SCH (20:52)
[2016-10-27] MEDS ORDERED: GYNE-LOTRIMIN VAGINAL CREAM VAG SCH (21:00)
[2016-10-27] MEDS: SYMBICORT 160/4.5 MICROGM INHALER INH SCH (21:35)
[2016-10-28] MEDS: OFIRMEV 1000 MG/ISOTONIC SOLN 1,000 MG/100 ML BOTTLE IV SCH ×2 (02:00→09:17)
[2016-10-28] MEDS: DUONEB (A & A) INH SCH ×3 (03:55→11:54)
[2016-10-28 04:46] LABS: ALLEN TEST YES; BE 15.3 mmoll (-3.0-3.0); BLOOD TYPE ARTERIAL; DRAW SITE R RADIAL; METHB 0.6 % (0.0-1.5); O2(CT) 12.9 mL/dL (15.0-23.0); PO2(98.6) 94 mmHg (60-100); SAMPLE BLOOD; SAO2 98.6 % (95.0-100.0); THB 9.4 g/dL (11.5-17.4); pH(98.6) 7.43 (7.35-7.45)
[2016-10-28 04:48] LABS: MODALITY BI PAP; PCO2(98.6) 63 mmHg (35-45)
[2016-10-28 05:40] LABS: AGAP 11; BUN 34 mg/dL (8-22); CALCIUM 9.5 mg/dL (8.8-10.2); CHLORIDE 88 mmol/L (98-107); COSMO 279; POTASSIUM 3.5 mmol/L (3.5-5.1); SODIUM 134 mmol/L (136-145); TCO2 35 mmol/L (25-35)
[2016-10-28] MEDS: SYNTHROID PO SCH (06:00)
[2016-10-28] MEDS: PRILOSEC PO SCH (06:00)
[2016-10-28] MEDS ORDERED: GOLYTELY PO ONE (07:30)
[2016-10-28] MEDS: SYMBICORT 160/4.5 MICROGM INHALER INH SCH (08:15)
--- NOTE | 2016-10-28 08:35 | PROGRESS NOTE ---
DATE: 10/28/2016 SUBJECTIVE: Patient reports breathing better. Denies any chest pain, any fever or chills. The patient reports that despite getting medications for constipation provided here, she is not able to have any bowel movement for the last few days. OBJECTIVE: Vital Signs: Temperature 97.9 degrees, heart rate 65, respiratory rate 18, blood pressure 133/48, O2 saturation 92% on BiPAP machine. General: A morbidly obese and chronically ill-looking 70-year-old female lying in bed, in no acute distress. HEENT: Head is normocephalic and atraumatic. Mucous membranes dry. Neck: Supple. JVD is not possible to evaluate because of the neck girth. No carotid bruits. Cardiovascular: S1, S2 heard. No murmurs, gallops, or rubs. Regular rate and rhythm. Respiratory: Decreased air entry globally with some bibasilar crepitation, wheezing but definitely better in comparing with previous days. Patient is not using any accessory muscles or having work of breathing. Abdomen: A little bit distended, but same in comparing with yesterday. There is abdominal wall and chest wall swelling. No signs of peritoneal irritation. Ram's sign negative. Extremities: 1+ pitting edema in both lower extremities. Peripheral pulses present in both legs. Neurological: Patient awake, follow commands, and answers questions appropriately. LABORATORY DATA: ABG shows pH 7.42 with pCO2 63, and the BMP is unremarkable except BUN 34. ASSESSMENT AND PLAN: 1. Acute hypoxemic and hypercarbic respiratory failure. We have started her yesterday on DuoNeb every 4 hours, and pCO2 is definitely much better. I think that could be her new baseline. At home, she used 3-4 L of oxygen by nasal cannula. But unfortunately during all her 9 days here, when she is not on BiPAP, she is not able to tolerate even 6 L of oxygen by nasal cannula. But she needs to use Ventimask to keep O2 saturation 90 and above. I think this patient will need definitely more time in the hospital. At this point, we are going to continue with the same management. 2. Acute on chronic diastolic heart failure. Patient is currently is on Lasix 40 mg p.o. b.i.d. and also Diamox,as per Cardiology. The patient is having good diuresis. We will continue with the same medications. 3. Hypothyroidism. Will continue with the same doses of Synthroid. 4. Dilated concentric hypertrophic, cardiomyopathy with moderate aortic insufficiency aware. Cardiology is following. 5. Aortic valve endocarditis. As we mentioned in our previous notes, we have decided to stop treatment for this condition because we do not think this patient has an active infectious endocarditis. 6. Bilateral pneumonia, that was not completely clear that this patient had a pneumonia because CT shows some atelectasis and possible infiltrates, and the x-ray did not show that finding. In any case, I prefer to be in the safe side, and complete 7 days of antibiotics, in this case, vancomycin and Zosyn. 7. Obstructive sleep apnea. Patient is supposed to use BiPAP overnight at home. She is using that here overnight ever single day. 8. Acute kidney injury, resolved. 9. Thrombocytopenia. We do not have the results of the CBC today. We will continue to check that daily. Because of this finding, we changed it a few days ago, the DVT prophylaxis with Lovenox to Arixtra. 10. Abdominal distention secondary to constipation. Because this patient has not responded to the medication that we are giving to her, we decide to use GoLYTELY and see how this patient does. 11. Overall, this patient is progressing slowly. I think that this patient will need to be in the hospital for a prolonged period of time. That is why we have consulted psych social worker to see if LTAC can take this patient or not. We will see what they have to say. cc: Griffin Powell MD
--- NOTE | 2016-10-28 08:45 | PROGRESS NOTE ---
DATE: 10/28/2016 PRESENT ILLNESS: The patient has a bibasilar pneumonia and a Batsheva vaginitis. I do not think she has active endocarditis. MEDICATIONS: The patient is receiving vancomycin and cefepime. This is the 6th day of treatment with both of those agents. Yesterday, she was started on Lotrimin vaginal cream for her Batsheva vaginitis. PHYSICAL EXAMINATION: Vital Signs: Temperature is 97.9, pulse 65, respirations 18, blood pressure 133/48. General: This is an obese, elderly female who is in no acute distress. Lungs: There were bilateral rhonchi. Cardiovascular: Heart rate was regular. Abdomen : Flanks are soft and nontender. Neurologic: Patient is awake. She can move her extremities. LAB AND X-RAY: CBC today showed a white count of 6840, hemoglobin 9.5, and platelet count 58,000. Blood gases show a pH of 7.43, a pO2 of 94 and pCO2 of 63. Creatinine 0.9. GFR is greater than 60. ASSESSMENT AND PLAN: 1. Patient has pneumonia. 2. Batsheva vaginitis. I am going to continue with the current antibiotics and repeat the chest x-ray tomorrow. Also, I am going to continue with a Lotrimin vaginal cream. COMORBIDITIES: Include diabetes mellitus, morbid obesity, COPD and sleep apnea. cc: Rowdy Morales MD MTDJani
[2016-10-28] MEDS: MIRALAX PO SCH (09:17)
[2016-10-28] MEDS: LINZESS PO SCH (09:17)
[2016-10-28] MEDS: LIPITOR PO SCH (09:17)
[2016-10-28] MEDS: ZOFRAN IV PRN (09:17)
[2016-10-28] MEDS: DIAMOX PO SCH (09:17)
[2016-10-28] MEDS: LASIX PO SCH (09:17)
[2016-10-28] MEDS: FOLIC ACID PO SCH (09:17)
[2016-10-28] MEDS: TOPROL XL PO SCH (09:17)
[2016-10-28] MEDS: MAXIPIME 2 GM in NS 100 ML IV SCH (09:18)
[2016-10-28] MEDS: CYMBALTA PO SCH (09:18)
[2016-10-28] MEDS: DULCOLAX PO SCH (09:18)
[2016-10-28] MEDS: ARIXTRA SUBQ SCH (09:59)
[2016-10-28] MEDS: VANCOMYCIN 1,800 MG in NS 500 ML IV SCH (11:22)
[2016-10-28 12:22] VITALS: BP 137/48
--- NOTE | 2016-10-28 14:07 | DISCHARGE SUMMARY ---
ADMISSION DATE: 10/19/2016 DISCHARGE DATE: 10/28/2016 CONSULTATIONS: 1. Dr. Granados with cardiology. 2. Dr. Gustavo Yin with nephrology. 3. Dr. Roland Stanford with pulmonology. 4. Dr. Rowdy Morales with infectious disease. PERTINENT PROCEDURES: 1. Initial chest x-ray showed stable cardiomegaly, mild central vascular congestion, hazy atelectasis at the left base. 2. Echocardiogram showed an EF of 55 to 60%. Mobile mass noted in the aortic valve associated with mild aortic regurgitation, not well characterized. Recommended SAMANTHA. 3. Follow-up chest x-ray, stable. 4. Abdomen and pelvis CT showed bibasilar atelectasis plus or minus pneumonia, constipation, diverticulosis coli, and gallbladder sludge. DISCHARGE DIAGNOSES: 1. Acute hypoxemic and hypercapnic respiratory failure. CO2 has improved during her 9 day course stay. She is unable to completely come off BiPAP as she is not tolerating 6 L nasal cannula and will need a Venturi mask to keep her O2 saturations above 90. Patient is being discharged to LTAC to continue with aggressive pulmonary toilet. 2. Acute on chronic diastolic heart failure. The patient will continue on Lasix 40 mg p.o. b.i.d. as well as Diamox per cardiology and follow up with him in 4 weeks. 3. Suspicion of severe aortic insufficiency, regurgitation. Likely secondary to previous aortic valve endocarditis with no active infection in this patient. C-reactive protein and sedimentation rate were normal. 4. Dilated concentric hypertrophic cardiomyopathy. Aware. 5. Hypothyroidism. Continue Synthroid. 6. Bilateral pneumonia that has not completely cleared. Followed by infectious disease. Continue IV antibiotics, bronchodilators, aggressive pulmonary toilet, supplemental O2. 7. Obstructive sleep apnea. The patient is supposed to use BiPAP overnight at home. She continues to use BiPAP during the day, Ventimask, as well as nasal cannula. 8. Acute kidney injury, resolved. 9. Thrombocytopenia. She has been on DVT prophylaxis with Arixtra. 10. Abdominal distention secondary to constipation. She has been initiated on a bowel regimen. Improved. 11. Hypokalemia. Improved. 12. Hyponatremia. She has received doses of Samsca. Cardiology recommends following her BMP in 5 days, treat accordingly. 13. Fluid volume overload secondary to diastolic heart failure. Continue with Lasix and Diamox. 14. Myoclonic jerks, likely medication related. They did make adjustments to her sedatives and neuropathics. 15. Corby vaginitis. Continue with Lotrimin vaginal cream. 16. Morbid obesity, Pickwickian syndrome. HOSPITAL COURSE: Briefly, Ms. Peck is a 70-year-old female, well known to our service, admitted to the hospital a multitude of times, this being her 4th admission this year. Last admitted on 06/11/2016 and discharged on 06/18, with shortness of breath and fluid overload. She carries a past medical history of chronic diastolic heart failure, diabetes mellitus, sleep apnea, chronic COPD, she is home O2 dependent, hypertension, dyslipidemia. She is supposed to wear CPAP and BiPAP at night. Presented to the ED for progressively worsening shortness of breath. She reported since June she has not been able to be mobile and has been extremely bed- bound for the last 3-4 days due to shortness of breath associated with orthopnea and PND. In the ED she was found to have a critical potassium of 6 which was treated urgently. White count was 8, hemoglobin was 9, platelet count was 67,000 and that is chronically low for this patient. Sodium was 134, chloride was 90, bicarb 38, BUN was 83, creatinine is 1.6, glucose was 138. Chest x-ray showed stable cardiomegaly, mild central vascular congestion, some hazy atelectasis at the left base. EKG showed normal sinus rhythm with mild T-wave inversion in inferolateral leads which is not new compared to previous EKGs. She is a resident of [facility]. She was admitted for acute hypoxemic respiratory failure with O2 saturations of 86% due to pulmonary edema and acute on chronic diastolic heart failure. She is admitted to the [facility]. She was already given acute management of her high potassium and checked frequently and treated accordingly. She was placed on a Lasix drip and add metolazone to enhance her diuretic effect of Lasix. Consulted nephrology and cardiology, as well as pulmonology and infectious disease. Her echocardiogram did show an appendage on her aortic valve. There was no active infection. Her C- reactive protein and sedimentation rate were normal. Cardiology did not want to do a SAMANTHA given her poor respiratory status, but if she did require any orotracheal intubation they would use that opportunity to do a SAMANTHA at that time and agreed to continue with the Lasix drip. Her acute kidney injury resolved with treatment of her heart failure and oxygen, likely prerenal in origin. Nephrology was able to sign off. Dr. Morales did start the patient on a combination of vancomycin and cefepime. She was diuresed several days on an IV Lasix drip. He did add Diamox. One out of her 4 blood cultures were positive for coagulase-negative staphylococcal; that was a contaminant. Abdomen and pelvis CT, she has bibasilar pneumonia with atelectasis as well as vaginitis corby and was started on vaginal Lotrimin cream. Unfortunately after 9 days in the hospital when she is not on BiPAP she is not able to tolerate 6 L of nasal cannula. She had to be placed on a Ventimask to keep her O2 saturations [address] Powell talked to the patient at length. She has accepted to go to LTAC to continue prolonged treatment. She has been accepted to the LTAC in [place] and will be discharged there today. VITAL SIGNS: At time of her discharge, temperature 97.9 degrees, heart rate 65 , respirations 18, blood pressure 133/48, O2 is 90% on 15 L Venturi mask. DISCHARGE DIET: Healthy heart. DISCHARGE MEDICATIONS: As per Dr. Powell. Please see MAR. FOLLOW UP: Ms. Peck is being discharged to LTAC in [place]. She will need a BMP in 5 days. Continue to follow her electrolytes closely. She will also need to follow up with Dr. Granados in 3-4 weeks. She will return to the ED for any worsening of symptoms. DISCHARGE TIME: Greater than 35 minutes. Dictated by LYNN Blum for Griffin Powell MD Addendum: Patient seen and examined by myself. Agree with LYNN note. It reflects my assessment and plan. Patient admitted for acute hypercarbic and hypoxemic respiratory failure. Patient has been on BIPAP all time overnight and on the day on Ventimask at variable oxygen rate but she was not able to tolerate oxygen by nasal cannula because it was not meeting her oxygen needs. At home she was using 3 to 4 lt to mantain O2 sats greater than 90%. We also found out she has pneumonia. It was considered necessary to send this patient to LTAC because her hospitalization will be long and she will need few weeks to recover. Patient is being discharged in stable condition. cc: Griffin Powell MD MTDD
== END 2016-10-28 14:54 ==
LOC: SUPCPDRO → ED 15:01 → SUATTDRO 19:23 → EDIPHOLD 19:23 → ICU 10-20 14:03 → 3S 10-21 15:20
PROVIDERS: ATTEND Internal Medicine